=== PATIENT | male | born 1925 | race Caucasian/White ===

== ENCOUNTER 2017-03-14 12:43 | Inpatient (IN) | payer MEDICARE, BC ==
[2017-03-14] MEDS ORDERED: NS 0.9% 1000 ML*IV.FLUID IV ONE (12:54)
[2017-03-14] MEDS ORDERED: Vancomycin(*) 1,000 MG in NS 0.9% 250 ML* 250 ML IVPB ONE (12:56)
[2017-03-14 13:35] LABS: Urine Bacteria 1+ (Absent); Urine Bilirubin Negative (Negative); Urine Glucose Negative (Negative); Urine Nitrite Negative (Negative)
[2017-03-14 13:37] LABS: Hematocrit 31 % (42-52); Hemoglobin 9.9 g/dl (14.0-18.0); Mean Corpuscular HGB Conc 32 g/dl (31-36); Mean Corpuscular Hemoglobin 32 pg (27-31); Mean Corpuscular Volume 99 fL (80-94); Mean Platelet Volume 11 um3 (7.4-10.4); Red Blood Count 3.13 10^6/ul (4.0-5.4); Red Cell Distribution Width 16 % (10.5-15); White Blood Count 5.3 10^3/ul (3.5-10.8)
[2017-03-14 13:39] LABS: Add Diff/Slide Review? Slide Review Added; Albumin 3.5 g/dL (3.2-5.2); BUN/Creatinine Ratio 31.2 (8-20); C Reactive Protein 43.47 mg/L (< 5.00); Calcium 8.9 mg/dL (8.6-10.3); Comments Flag Yes; EGFR African American 44.2 (>60); EGFR Non-African American 34.4 (>60); Globulin 3.6 g/dL (2-4); Total Bilirubin 0.5 mg/dL (0.2-1.0); Total Protein 7.1 g/dL (6.4-8.9)
[2017-03-14 13:41] LABS: Troponin I 0.01 ng/mL (<0.04)
--- NOTE | 2017-03-14 13:42 | RAD ---
INDICATION: Sepsis COMPARISON: Chest x-ray July 26, 2015 TECHNIQUE: An AP supine portable view obtained at 1315 hours is submitted. FINDINGS: Bones/Soft Tissues: There are no acute bony findings. There is a right-sided cardiac pacemaker Cardiomediastinal: The correct silhouette is enlarged with an interval increase in size. There is mild interstitial congestion. Lungs: There is hyperinflation with mild underlying chronic interstitial changes. Pleura: There are small pleural effusions. The costophrenic angles are not included entirely in the [id number] Other: None IMPRESSION: CHRONIC LUNG FINDINGS WITH HYPERINFLATION. ENLARGED CARDIAC SILHOUETTE WITH MILD SUPERIMPOSED VASCULAR CONGESTION
[2017-03-14 13:46] LABS: Potassium 5.8 mmol/L (3.5-5.0)
[2017-03-14] MEDS ORDERED: Hydrocortisone INJ* 100 MG VIAL IV ONE (13:54)
[2017-03-14] MEDS ORDERED: Vancomycin per Pharmacy* NOTE FOLLOW UP SCH (14:00)
[2017-03-14] MEDS ORDERED: Zosyn per Pharmacy* NOTE FOLLOW UP SCH (14:00)
--- NOTE | 2017-03-14 14:11 | ED ---
Dilan Sethi Nilda, scribed for Vargas Ybarra MD on 03/14/17 at 1316 . Altered Mental Status - HPI Summary HPI Summary: This patient is an 89 year old M MIAHA presenting to [facility] with a chief complaint of constant lethargy (per EMS) that is still present. Patient is hypotensive. He is DNR. LEVEL 5 Caveat: Limited history due to limited responsiveness. - History Of Current Complaint Stated Complaint: LOW BP Time Seen by Provider: 03/14/17 12:53 Hx Obtained From: EMS Onset/Duration: Still Present Severity Currently: Severe Character: Lethargy Aggravating Factor(s): Unknown Alleviating Factor(s): Unknown - Allergies/Home Medications Allergies/Adverse Reactions: Allergies Allergy/AdvReac Type Severity Reaction Status Date / Time No Known Allergies Allergy Verified 05/08/16 07:35 Home Medications: Home Medications Acetaminophen TAB* [Tylenol TAB*] 325 mg PO Q8HR PRN 03/14/17 [History Confirmed 03/14/17] Acetaminophen TAB* [Tylenol TAB*] 650 mg PO Q6HR PRN 03/14/17 [History Confirmed 03/14/17] Levothyroxine TAB* [Synthroid TAB*] 125 mcg PO DAILY 03/14/17 [History Confirmed 03/14/17] Loperamide CAP* [Imodium CAP*] 2 mg PO Q6HR PRN 03/14/17 [History Confirmed 07/30] Loperamide LIQ* [Imodium LIQ*] 5 ml PO Q12HR PRN 03/14/17 [History Confirmed 07/30] Metoprolol Succinate XL TAB* [Toprol XL TAB*] 25 mg PO DAILY 03/14/17 [History Confirmed 03/14/17] Moisturizing CREAM* [Hydrocerin Cream*] 1 applic TOPICAL BID 03/14/17 [History Confirmed 03/14/17] Nystatin CREAM* 1 applic TOPICAL BID 03/14/17 [History Confirmed 03/14/17] Omeprazole CAP* [Prilosec CAP* 20 MG] 40 mg PO BID 03/14/17 [History Confirmed 03/14/17] Psyllium ROLA* [Metamucil ROLA*] 1 pkt PO DAILY 03/14/17 [History Confirmed ] Sodium Fluoride (Dental) [Denta 5000 Plus] 1.1 % PO Q12HR 03/14/17 [History Confirmed 03/14/17] PMH/Surg Hx/FS Hx/Imm Hx Endocrine/Hematology History: Reports: Hx Anemia Denies: Hx Diabetes Cardiovascular History: Reports: Hx Hypertension, Hx Pacemaker/ICD Denies: Hx Congestive Heart Failure Respiratory History: Reports: Hx Asthma, Hx Pulmonary Embolism GI History: Denies: Hx Jaundice History: Denies: Hx Dialysis, Hx Renal Disease Sensory History: Reports: Hx Contacts or Glasses - reading glasses Opthamlomology History: Reports: Hx Contacts or Glasses - reading glasses Psychiatric History: Denies: Hx Panic Disorder - Cancer History Cancer Type, Location and Year: COLON CA AND PROSTATE CA Hx Chemotherapy: Yes Hx Radiation Therapy: Yes - Surgical History Surgery Procedure, Year, and Place: LT KNEE, RT ANKLE SURGERY,COLON RESECTION, PROSTATECTOMY, APPENDIX - Family History Known Family History: Positive: Unknown, Hypertension Negative: Cardiac Disease, Diabetes - Social History Alcohol Use: Weekly Hx Substance Use: No Substance Use Type: Reports: None Hx Tobacco Use: Yes Smoking Status (MU): Former Smoker Review of Systems - ROS Summary Review of Systems Summary: LEVEL 5 Caveat: Limited history due to limited responsiveness. Positive: Other - hypotensive (per EMS) Neurological: Other - lethargic All Other Systems Reviewed And Are Negative: No Physical Exam Triage Information Reviewed: Yes Vital Signs On Initial Exam: Initial Vitals Temp Pulse Resp BP Pulse Ox 90.0 F 62 20 84/63 97 03/14/17 13:13 03/14/17 13:13 03/14/17 13:13 03/14/17 13:13 03/14/17 13:13 Vital Signs Reviewed: Yes Completion Of Physical Exam Limited Due To: Level 5 Skin: Positive: Other - petechial rash diffusely over torso Cardiovascular: Positive: Other - Hypotensive Neurological: Positive: Other - Awake, Answers Questions, Slow to Respond Diagnostics - Vital Signs Vital Signs Temp Pulse Resp BP Pulse Ox 03/14/17 13:30 89.2 F 60 18 85/69 97 03/14/17 13:20 89.1 F 62 19 87/61 97 03/14/17 13:13 90.0 F 62 20 84/63 97 - Laboratory Lab Results: Lab Results 03/14/17 03/14/17 03/14/17 Range/Units 13:00 13:00 13:00 WBC 5.3 (3.5-10.8) 10^3/ul RBC 3.13 L (4.0-5.4) 10^6/ul Hgb 9.9 L (14.0-18.0) g/dl Hct 31 L (42-52) % MCV 99 H (80-94) fL MCH 32 H (27-31) pg MCHC 32 (31-36) g/dl RDW 16 H (10.5-15) % Plt Count 89 L (150-450) 10^3/ul MPV 11 H (7.4-10.4) um3 Neut % (Auto) 78.3 (38-83) % Lymph % (Auto) 10.6 L (25-47) % Kendall % (Auto) 6.5 (1-9) % Eos % (Auto) 4.2 (0-6) % Baso % (Auto) 0.4 (0-2) % Absolute Neuts (auto) 4.2 (1.5-7.7) 10^3/ul Absolute Lymphs (auto) 0.6 L (1.0-4.8) 10^3/ul Absolute Monos (auto) 0.3 (0-0.8) 10^3/ul Absolute Eos (auto) 0.2 (0-0.6) 10^3/ul Absolute Basos (auto) 0 (0-0.2) 10^3/ul Absolute Nucleated RBC 0.03 10^3/ul Nucleated RBC % 0.6 INR (Anticoag Therapy) 1.12 H (0.89-1.11) APTT 39.1 H (26.0-36.3) seconds Sodium 139 (133-145) mmol/L Potassium 5.8 H (3.5-5.0) mmol/L Chloride 106 (101-111) mmol/L Carbon Dioxide 28 (22-32) mmol/L Anion Gap 5 (2-11) mmol/L BUN 58 H (6-24) mg/dL Creatinine 1.86 H (0.67-1.17) mg/dL Est GFR ( Amer) 44.2 (>60) Est GFR (Non-Af Amer) 34.4 (>60) BUN/Creatinine Ratio 31.2 H (8-20) Glucose 83 (70-100) mg/dL Lactic Acid (0.5-2.0) mmol/L Calcium 8.9 (8.6-10.3) mg/dL Total Bilirubin 0.50 (0.2-1.0) mg/dL AST 35 (13-39) U/L ALT 19 (7-52) U/L Alkaline Phosphatase 102 (34-104) U/L Troponin I 0.01 (<0.04) ng/mL C-Reactive Protein 43.47 H (< 5.00) mg/L Total Protein 7.1 (6.4-8.9) g/dL Albumin 3.5 (3.2-5.2) g/dL Globulin 3.6 (2-4) g/dL Albumin/Globulin Ratio 1.0 (1-3) Urine Color Urine Appearance Urine pH (5-9) Ur Specific [place] (1.010-1.030) Urine Protein (Negative) Urine Ketones (Negative) Urine Blood (Negative) Urine Nitrate (Negative) Urine Bilirubin (Negative) Urine Urobilinogen (Negative) Ur Leukocyte Esterase (Negative) Urine WBC (Auto) (Absent) Urine RBC (Auto) (Absent) Ur Transition Epith Cell (Absent) Urine Bacteria (Absent) Urine Glucose (Negative) Urine Ascorbic Acid (Negative) 03/14/17 03/14/17 Range/Units 13:00 13:05 WBC (3.5-10.8) 10^3/ul RBC (4.0-5.4) 10^6/ul Hgb (14.0-18.0) g/dl Hct (42-52) % MCV (80-94) fL MCH (27-31) pg MCHC (31-36) g/dl RDW (10.5-15) % Plt Count (150-450) 10^3/ul MPV (7.4-10.4) um3 Neut % (Auto) (38-83) % Lymph % (Auto) (25-47) % Kendall % (Auto) (1-9) % Eos % (Auto) (0-6) % Baso % (Auto) (0-2) % Absolute Neuts (auto) (1.5-7.7) 10^3/ul Absolute Lymphs (auto) (1.0-4.8) 10^3/ul Absolute Monos (auto) (0-0.8) 10^3/ul Absolute Eos (auto) (0-0.6) 10^3/ul Absolute Basos (auto) (0-0.2) 10^3/ul Absolute Nucleated RBC 10^3/ul Nucleated RBC % INR (Anticoag Therapy) (0.89-1.11) APTT (26.0-36.3) seconds Sodium (133-145) mmol/L Potassium (3.5-5.0) mmol/L Chloride (101-111) mmol/L Carbon Dioxide (22-32) mmol/L Anion Gap (2-11) mmol/L BUN (6-24) mg/dL Creatinine (0.67-1.17) mg/dL Est GFR ( Amer) (>60) Est GFR (Non-Af Amer) (>60) BUN/Creatinine Ratio (8-20) Glucose (70-100) mg/dL Lactic Acid 2.2 H* (0.5-2.0) mmol/L Calcium (8.6-10.3) mg/dL Total Bilirubin (0.2-1.0) mg/dL AST (13-39) U/L ALT (7-52) U/L Alkaline Phosphatase (34-104) U/L Troponin I (<0.04) ng/mL C-Reactive Protein (< 5.00) mg/L Total Protein (6.4-8.9) g/dL Albumin (3.2-5.2) g/dL Globulin (2-4) g/dL Albumin/Globulin Ratio (1-3) Urine Color Irma Urine Appearance Turbid Urine pH 5.0 (5-9) Ur Specific [place] 1.021 (1.010-1.030) Urine Protein 2+(100 mg/dl) H (Negative) Urine Ketones Trace H (Negative) Urine Blood 3+ H (Negative) Urine Nitrate Negative (Negative) Urine Bilirubin Negative (Negative) Urine Urobilinogen Negative (Negative) Ur Leukocyte Esterase 3+ H (Negative) Urine WBC (Auto) 3+(>20/hpf) H (Absent) Urine RBC (Auto) 3+(>10/hpf) H (Absent) Ur Transition Epith Cell Present H (Absent) Urine Bacteria 1+ H (Absent) Urine Glucose Negative (Negative) Urine Ascorbic Acid * H (Negative) Result Diagrams: 03/14/17 13:00 03/14/17 13:00 Lab Statement: Any lab studies that have been ordered have been reviewed, and results considered in the medical decision making process. - Radiology CXR Radiology Interpretation Completed By: Radiologist - Chronic lung findings with hyperinflation. Enlarged cardiac silhouette with mild superimposed vascular congestion. ED physician has reviewed this radiology report and agrees. Altered Mental Statu Course/Dx - Course Course Of Treatment: Mr. Miller presented womewhat lethargic with a low temp and blood pressure. He was given fluids, passive external rewarming, and antibiotics. His W/U revealed dehydration and UTI and he will be admitted to the [facility]. Carson. - Diagnoses Discharge Diagnoses: Sepsis, UTI (urinary tract infection) - Provider Notifications Discussed Care Of Patient With: Mina Carson - [facility] Time Discussed With Above Provider: 13:53 Instructed by Provider To: Admit As Inpatient - Critical Care Time Critical Care Time: 30-74 min Discharge - Discharge Plan Condition: Stable Disposition: ADMITTED TO [facility] The documentation as recorded by the Dilan alegria Nilda accurately reflects the service I personally performed and the decisions made by me, Vargas Ybarra MD.
[2017-03-14] MEDS ORDERED: Albuterol/Ipratropium NEB.SOL* Albuterol 2.5 MG/Ipratropium 0.5 MG 3 ML INH PRN (14:13)
[2017-03-14] MEDS ORDERED: Ondansetron INJ* 2 MG/ML VIAL IV PRN (14:13)
[2017-03-14] MEDS ORDERED: Haloperidol INJ IV/IM* 5 MG/ML AMP IV SLOW PU PRN (14:13)
[2017-03-14] MEDS ORDERED: Acetaminophen TAB* 325 MG PO PRN (14:16)
[2017-03-14] MEDS ORDERED: Levothyroxine INJ* 100 MCG in D5W 250 ML BAG* 250 ML IV SCH (15:00)
[2017-03-14] MEDS ORDERED: Vancomycin(*) 500 MG in NS 0.9% 250 ML* 250 ML IVPB ONE (15:30)
[2017-03-14] MEDS ORDERED: Levothyroxine INJ* 100 MCG/5 ML VIAL IV ONE (16:00)
[2017-03-14 16:13] LABS: TSH (Thyroid Stimulating Horm) 12.64 mcIU/mL (0.34-5.60)
[2017-03-14] MEDS: NS 0.9% 1000 ML* 1,000 ML IV SCH ×3 (16:18→19:19)
[2017-03-14] MEDS: ZOSYN 3.375 GM Q8H per EXTENDED INFUSION IVPB SCH ×2 (16:44)
--- NOTE | 2017-03-14 21:59 | HP ---
H&P (Free Text) History and Physical: CRITICAL CARE MEDICINE DATE: 03/14/17 TIME: 1400 PRIMARY CARE PROVIDER: REFERRING PROVIDER: Tate REASON/CHIEF COMPLAINT: sepsis HISTORY OF PRESENT ILLNESS: 89 M with declining status over last few days perhaps. Historuy limited but pt just wanting to sleep lately. Lethargic today and hypotensive in field and ED. Temp ~90F. Responding to fluid in ED and tx for sepsis sec to uti. REVIEW OF SYSTEMS: As per HPI. PAST MEDICAL HISTORY: As per HPI. Bullous pemphigoid?, urolithiasis, htn, lipids , colon ca, prostate ca, gib, dvt/pe, anesymsal repair MEDICATIONS: Reviewed but unconfirmed. ALLERGIES: Reviewed. None. SOCIAL HISTORY: Reviewed. daughter and granddaughter present. pts son and daughter help with his decisions but she was not clear on proxy. known DNR. FAMILY HISTORY: Noncontributory at present. PHYSICAL EXAM: Vital Signs: Reviewed. hyothermia, hr 60 paced Neurologic: awake, mild encephalopathy. oriented to place but difficulty with correct time and ailements HEENT: anicteric, mm dry, lip cyanosis. Cardiovascular: janel, pacer pocket intact Respiratory: dec phases but clear Abdomen: soft, nt; signs of petechia although they seem much older then just acute septicemia insult Extremities: cool, pretibial edema. Access: 3 piv LABS: Reviewed. IMAGING: Reviewed. MEDICATIONS: Reviewed. ASSESSMENT: 89 M Severe sepsis sec to uti Mild septic encephalopathy Myxodema Adrneal insuff Acute renal failure sec to above Hyperkalemia Thrombocytopenia PLAN: Neurologic: tolerating, but component of encephalopathy present. time, watchfor worsening swings with mentation Cardiovascular: Actual able to tolerate perfusion but quite intravascularly and some interstial depletions. 4L NS bolus and then continued IVF. His inappropriately cardiac ouput and despite demand points to either a poor pump function (last echo would not suggest such) or more hormonal failure, which certainly seems more likely here. needs hydrocortisone and IV T4. no anticiapted vasopressor needs. Respiratory: tolerating but again insufficient for condition. place on 4L and hopefully can avid any lung injury. certainly not the primary ailment at present. prn nebs Gastrointestinal: should be able to cleopatra diet later. no specific Renal/Metabolic: gissell, hopefully much of which is pre-renal. no flank pain nor imaging needed at this time. ravi if needed otherwise f/u for void and Uout. LA small and will clear. K will come down with fluid. Infectious Disease: given zosyn and vanco and given his acute presentation and odd petchiae will remain on broad coverage until cx can hopefully help sort. Sick but not showing toxemia of such. Can follow up his h/o and petechial questions. Hematology: plts are lower then usual and petechie considering but again not appearing to be the toxic ailment. INR ok. No real MAHA to suggest TTP or HUS or alternative really other then his dyanmics labelled already, plus Endocrine: clinical myxodema. ask ED to give hydrocortisone as they explain story to me and then added T4 and may need f/u of both; but certainly needing acute replacement. Known to Dr Manzano who can certainly follow up Musculoskeletal: f/u deconditioning Psych/Social: daughter and granddaughter updated at bedside and understood plans and severity and they were in agreement understanding pts wishes of DNR. They expressed understanding of potential high morbidity and mortality of current msof and we all agreed to tx as we are. Supportive and preventative care as ordered. Vaccine: f/u SUP: po VTE prophylaxis: SCDs, hold chemical as we need to see where his plt go come tomorrow. Disposition: ICU Code Status: DNR/DNI Critical Care Time: 45min Pancho Carson DO
[2017-03-14] MEDS: Levothyroxine INJ* 100 MCG/5 ML VIAL IV ONE ×2 (22:21→22:36)
[2017-03-14] MEDS: Hydrocortisone INJ* 100 MG VIAL IV SCH (22:21)
[2017-03-15] MEDS: ZOSYN 3.375 GM Q8H per EXTENDED INFUSION IVPB SCH ×4 (01:46→09:15)
[2017-03-15] MEDS: NS 0.9% 1000 ML* 1,000 ML IV SCH (04:21)
[2017-03-15 05:31] LABS: Hematocrit 28 % (42-52); Hemoglobin 9.3 g/dl (14.0-18.0); Mean Corpuscular HGB Conc 33 g/dl (31-36); Mean Corpuscular Hemoglobin 33 pg (27-31); Mean Corpuscular Volume 100 fL (80-94); Mean Platelet Volume 11 um3 (7.4-10.4); Red Blood Count 2.84 10^6/ul (4.0-5.4); Red Cell Distribution Width 17 % (10.5-15); White Blood Count 8.2 10^3/ul (3.5-10.8)
[2017-03-15 05:33] LABS: Comments Flag Yes
[2017-03-15 05:42] LABS: BUN/Creatinine Ratio 35.5 (8-20); Calcium 7.9 mg/dL (8.6-10.3); EGFR African American 49.4 (>60); EGFR Non-African American 38.4 (>60); Magnesium 2.5 mg/dL (1.9-2.7); Phosphorus 4.9 mg/dL (2.5-5.0); Vancomycin Random 10.5 mcg/mL
[2017-03-15 05:50] LABS: Potassium 5.7 mmol/L (3.5-5.0)
[2017-03-15] MEDS: Hydrocortisone INJ* 100 MG VIAL IV SCH ×3 (06:18→17:52)
--- NOTE | 2017-03-15 08:38 | PN ---
Subjective - Subjective Reason for Note: Progress Note History: I have reviewed Lex Miller's presentation with his daughter and with Dr. Mina Carson's admitting history and physical. He is a primary care patient of [facility] and I have known him for 23 years. He has recently moved to [facility] living [facility]. He has multiple comorbidities. According to his daughter he has not been in his usual state of mind for 10 days, he has been more sleepy and less communicative. She put it down to the move to [facility]. He presented yesterday with sepsis, UTI, hypothermia, hypothyroidism and a petechial rash. This morning he responds to direct questions - he states he is in the hospital. When I asked him if there was anything I could do to make him comfortable he replied "hope". He denies any pain or distress, but is unable to give an account of himself. 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 Flory Wang [employer] Status post AAA (abdominal aortic aneurysm) repair (Chronic) Z98.89, Z86.79 Current Medications: Current Medications Acetaminophen (Tylenol Tab*) 650 mg PO Q4H PRN PRN Reason: FEVER Albuterol/Ipratropium (Duoneb (Albuterol 2.5 Mg/Ipratropium 0.5 Mg)) 1 neb INH Q4H PRN PRN Reason: SOB/WHEEZING Haloperidol Lactate (Haldol Inj Iv/Im*) 2 mg IV SLOW PU Q6H PRN PRN Reason: AGITATION Hydrocortisone Sodium Succinate (Solu-Cortef*) 100 mg IV Q8H [facility] Last Admin: 03/15/17 06:18 Dose: 100 mg Sodium Chloride (Ns 0.9% 1000 Ml*) 1,000 mls @ 125 mls/hr IV PER RATE [facility] Last Admin: 03/15/17 04:21 Dose: 125 mls/hr Piperacillin Sod/Tazobactam (Sod 3.375 gm/ Sodium Chloride) 100 mls @ 25 mls/ hr IVPB Q8H [facility] Last Admin: 03/15/17 01:46 Dose: 25 mls/hr Sodium Chloride (Ns 0.9% 1000 Ml*) 1,000 mls @ 999 mls/hr IV PER RATE [facility] PRN Reason: Wide Open Stop: 03/15/17 18:25 Last Admin: 03/14/17 19:19 Dose: 999 mls/hr Ondansetron HCl (Zofran Inj*) 4 mg IV Q4H PRN PRN Reason: NAUSEA Pharmacy Consult (Vancomycin Per Pharmacy*) 1 note FOLLOW UP .VANC PER PHARMACY [facility] Pharmacy Consult (Zosyn Per Pharmacy*) 1 note FOLLOW UP .ZOSYN PER PHARMACY [facility] Home Medications: Home Medications Medication Instructions Recorded Confirmed Type Ascorbic Acid TAB* [Vitamin C 500 mg PO DAILY 07/21/15 03/14/17 History TAB*] Ferrous Sulfate TAB* 325 mg PO DAILY 07/21/15 03/14/17 History Magnesium Oxide TAB* [MagOx 400 400 mg PO BID 07/21/15 03/14/17 History TAB*] Tamsulosin CAP* [Flomax CAP*] 0.4 mg PO DAILY 07/21/15 03/14/17 History Acetaminophen TAB* [Tylenol TAB*] 325 mg PO Q8HR PRN 03/14/17 03/14/17 History Acetaminophen TAB* [Tylenol TAB*] 650 mg PO Q6HR PRN 03/14/17 03/14/17 History Levothyroxine TAB* [Synthroid TAB*] 125 mcg PO DAILY 03/14/17 03/14/17 History Loperamide CAP* [Imodium CAP*] 2 mg PO Q6HR PRN 03/14/17 03/14/17 History Loperamide LIQ* [Imodium LIQ*] 5 ml PO Q12HR PRN 03/14/17 03/14/17 History Metoprolol Succinate XL TAB* 25 mg PO DAILY 03/14/17 03/14/17 History [Toprol XL TAB*] Moisturizing CREAM* [Hydrocerin 1 applic TOPICAL BID 03/14/17 03/14/17 History Cream*] Nystatin CREAM* 1 applic TOPICAL BID 03/14/17 03/14/17 History Omeprazole CAP* [Prilosec CAP* 20 40 mg PO BID 03/14/17 03/14/17 History MG] Psyllium ROLA* [Metamucil ROLA*] 1 pkt PO DAILY 03/14/17 03/14/17 History Sodium Fluoride (Dental) [Denta 1.1 % PO Q12HR 03/14/17 03/14/17 History 5000 Plus] Allergies: Allergies Allergy/AdvReac Type Severity Reaction Status Date / Time No Known Allergies Allergy Verified 05/08/16 07:35 Objective - Vital Signs Vital Signs: Vital Signs 03/14/17 03/14/17 03/14/17 14:00 14:06 14:12 Temperature 90.3 F 90.3 F 90.5 F Pulse Rate 60 61 60 Respiratory 19 23 19 Rate Blood Pressure 81/54 87/58 84/59 (mmHg) O2 Sat by Pulse 93 93 97 Oximetry 03/14/17 03/14/17 03/14/17 14:15 14:31 14:46 Temperature 90.5 F 90.9 F 91.0 F Pulse Rate 60 61 60 Respiratory 19 19 20 Rate Blood Pressure 88/58 88/71 86/70 (mmHg) O2 Sat by Pulse 98 99 99 Oximetry 03/14/17 03/14/17 03/14/17 15:00 15:20 15:34 Temperature 91.6 F Pulse Rate 59 60 Respiratory 18 18 22 Rate Blood Pressure 93/65 83/60 88/57 (mmHg) O2 Sat by Pulse 98 100 Oximetry 03/14/17 03/14/17 03/14/17 15:46 16:00 16:01 Temperature 91.8 F 91.9 F 91.9 F Pulse Rate 60 56 60 Respiratory 18 19 17 Rate Blood Pressure 83/60 86/59 (mmHg) O2 Sat by Pulse 99 97 99 Oximetry 03/14/17 03/14/17 03/14/17 16:15 16:30 16:46 Temperature 91.9 F 91.9 F 91.9 F Pulse Rate 60 Respiratory 18 17 18 Rate Blood Pressure 88/62 86/60 82/58 (mmHg) O2 Sat by Pulse 98 Oximetry 03/14/17 03/14/17 03/14/17 17:00 17:01 17:17 Temperature 92.1 F 92.1 F 92.5 F Pulse Rate 53 60 60 Respiratory 18 22 22 Rate Blood Pressure 85/63 88/59 (mmHg) O2 Sat by Pulse 96 97 99 Oximetry 03/14/17 03/14/17 03/14/17 17:31 17:46 18:00 Temperature 92.5 F 92.7 F 92.8 F Pulse Rate 60 60 77 Respiratory 20 21 23 Rate Blood Pressure 93/58 89/63 (mmHg) O2 Sat by Pulse 98 99 95 Oximetry 03/14/17 03/14/17 03/14/17 18:02 18:16 18:30 Temperature 92.8 F 93.0 F 93.0 F Pulse Rate 62 60 60 Respiratory 24 22 22 Rate Blood Pressure 89/63 85/61 87/62 (mmHg) O2 Sat by Pulse 98 99 98 Oximetry 03/14/17 03/14/17 03/14/17 18:45 19:00 19:16 Temperature 93.2 F 93.4 F 93.6 F Pulse Rate 60 60 60 Respiratory 19 20 20 Rate Blood Pressure 86/62 85/63 73/62 (mmHg) O2 Sat by Pulse 99 99 99 Oximetry 03/14/17 03/14/17 03/14/17 19:30 19:46 20:00 Temperature 93.7 F 93.9 F 93.9 F Pulse Rate 60 60 60 Respiratory 19 19 20 Rate Blood Pressure 96/56 74/54 86/59 (mmHg) O2 Sat by Pulse 95 95 96 Oximetry 03/14/17 03/14/17 03/14/17 20:15 20:30 20:45 Temperature 94.1 F 94.3 F 94.5 F Pulse Rate 65 60 Respiratory 20 19 21 Rate Blood Pressure 89/60 80/57 90/62 (mmHg) O2 Sat by Pulse 97 98 Oximetry 03/14/17 03/14/17 03/14/17 21:00 21:01 21:16 Temperature 94.5 F 94.5 F 94.6 F Pulse Rate 61 60 60 Respiratory 20 21 21 Rate Blood Pressure 91/60 91/71 (mmHg) O2 Sat by Pulse 93 97 98 Oximetry 03/14/17 03/14/17 03/14/17 21:30 21:45 21:58 Temperature 94.6 F 94.8 F 95.0 F Pulse Rate 60 60 60 Respiratory 21 21 28 Rate Blood Pressure 93/63 84/62 90/60 (mmHg) O2 Sat by Pulse 98 97 98 Oximetry 03/14/17 03/14/17 03/14/17 22:00 22:02 23:00 Temperature 95.0 F 95.0 F 95.5 F Pulse Rate 62 62 63 Respiratory 24 23 20 Rate Blood Pressure 85/60 98/65 (mmHg) O2 Sat by Pulse 98 98 99 Oximetry 03/14/17 03/14/17 03/15/17 23:01 23:57 00:00 Temperature 95.5 F 95.7 F 95.7 F Pulse Rate 61 60 55 Respiratory 21 21 23 Rate Blood Pressure 98/65 (mmHg) O2 Sat by Pulse 99 100 93 Oximetry 03/15/17 03/15/17 03/15/17 00:01 01:00 01:01 Temperature 95.7 F 95.9 F 95.9 F Pulse Rate 60 60 60 Respiratory 21 23 20 Rate Blood Pressure 101/67 92/64 (mmHg) O2 Sat by Pulse 99 96 95 Oximetry 03/15/17 03/15/17 03/15/17 02:00 02:01 03:00 Temperature 95.9 F 95.9 F Pulse Rate 60 60 65 Respiratory 19 18 18 Rate Blood Pressure 86/66 96/69 (mmHg) O2 Sat by Pulse 97 98 98 Oximetry 03/15/17 03/15/17 03/15/17 03:01 04:00 05:00 Temperature 61.3 F 94.6 F 96.1 F Pulse Rate 63 60 61 Respiratory 18 21 20 Rate Blood Pressure 99/67 93/61 (mmHg) O2 Sat by Pulse 98 97 97 Oximetry 03/15/17 03/15/17 03/15/17 05:01 06:00 06:01 Temperature 95.7 F 97.0 F 97.0 F Pulse Rate 60 61 60 Respiratory 20 21 20 Rate Blood Pressure 97/59 (mmHg) O2 Sat by Pulse 97 94 97 Oximetry 03/15/17 03/15/17 03/15/17 07:00 07:01 08:00 Temperature 97.5 F Pulse Rate 61 60 60 Respiratory 20 17 22 Rate Blood Pressure 93/61 102/64 (mmHg) O2 Sat by Pulse 98 97 98 Oximetry 03/15/17 03/15/17 08:01 08:13 Temperature 97.5 F Pulse Rate 60 60 Respiratory 22 16 Rate Blood Pressure (mmHg) O2 Sat by Pulse 98 97 Oximetry - Intake and Output Intake and Output: Intake & Output 03/12/17 03/13/17 03/14/17 03/15/17 11:59 11:59 11:59 11:59 Intake Total 5467 Output Total 185 Balance 5282 Weight 191 lb 2.252 oz Intake: IV Fluids 5442 NS (0.9%) 3442 Oral 25 Output: Maguire 185 Other: Date of Last Bowel 1 Movement Estimated Stool Amount Small ADLs: Meal Record Start: 03/14/17 14: 49 Freq: 09,13,18 Status: Active Document 03/14/17 18:00 [id number] (Rec: 03/14/17 18:37 [id number] [id number]) Intake and Output Start: 03/14/17 14: 49 Freq: 06,14,22 Status: Active Document 03/14/17 17:06 [id number] (Rec: 03/14/17 19:06 [id number] ICU-C25) Document 03/14/17 21:59 [id number] (Rec: 03/14/17 22:00 [id number] ICU-C06) Document 03/14/17 22:46 [id number] (Rec: 03/14/17 22:46 [id number] ICU-C25) Document 03/15/17 06:00 [id number] (Rec: 03/15/17 06:44 [id number]) - Physical Exam General Physical Exam Comment: He has a recovering older crop of petechiae on his chest and a newer batch of non-blanching petechiae on his abdomen. He has intertrigo in his groins that is a little hemorrhagic. He has marked flaky skin of his lower legs, but no major new ulcers. General: No Cyanosis, Yes Anemia, No Jaundice, No Clubbing Skin: Abnormal: Rash Lungs and Chest: Yes: Chest Expansion Full, Chest Expansion Symetrica, Percussion Note Resonant, Vessicular Breath Sounds. No: Crackles, Wheezes Heart Rate and Rhythm: Regular Additional Cardiovascular: Yes: Normal Heart Sounds. No: Pedal Edema Abdominal Exam: Yes: Distention, Soft - but firm, Bowel Sounds Present - reduced. No: Rigidity, Abdominal Mass, Hepatomegaly, Abdominal Tenderness - Neuro Orientation: Person, Place Speech: Normal - He has slow speech and is not discursive, but no aphasia Results - Results Lab Results: Laboratory Results - last 24 hr 03/14/17 03/15/17 03/15/17 17:50 05:10 05:10 WBC 8.2 RBC 2.84 L Hgb 9.3 L Hct 28 L MCV 100 H MCH 33 H MCHC 33 RDW 17 H Plt Count 76 L MPV 11 H Neut % (Auto) 94.9 H Lymph % (Auto) 2.7 L Converse % (Auto) 1.8 Eos % (Auto) 0.2 Baso % (Auto) 0.4 Absolute Neuts (auto) 7.8 H Absolute Lymphs (auto) 0.2 L Absolute Monos (auto) 0.2 Absolute Eos (auto) 0 Absolute Basos (auto) 0 Absolute Nucleated RBC 0.04 Nucleated RBC % 0.5 Sodium 139 Potassium 5.7 H Chloride 112 H Carbon Dioxide 20 L Anion Gap 7 BUN 60 H Creatinine 1.69 H Est GFR ( Amer) 49.4 Est GFR (Non-Af Amer) 38.4 BUN/Creatinine Ratio 35.5 H Glucose 76 Lactic Acid 1.1 Calcium 7.9 L Phosphorus 4.9 Magnesium 2.5 Random Vancomycin 10.5 Assessment - Problem List Assessment: Patient Problems Acute renal failure (Acute) DNR (do not resuscitate) (Acute) Hypothermia (Acute) MRSA nasal colonization (Acute) Medical orders for life-sustaining treatment (MOLST) form in chart (Acute) Oliguria (Acute) Petechial eruption (Acute) Sepsis (Acute) Urinary tract infection (Acute) Anemia (Chronic) Hyperlipidemia (Chronic) Late effects of acute poliomyelitis (Chronic) S/P cardiac pacemaker procedure (Chronic 03/14/14) Status post AAA (abdominal aortic aneurysm) repair (Chronic) Tachycardia (Chronic 03/14/14) Plan: Sepsis (Acute) He presents with sepsis due to a urinary tract infection and he has organ failure - in particular his kidneys. He is receiving broad spectrum antibacterial treatment. Initially growth of urine cultures is suspicious for enterococcus - identification will come later today. I will maintain his current IV antibacterial coverage. Urinary tract infection (Acute) He is receiving antibacterial treatment Acute renal failure (Acute) Oliguria (Acute)He has oliguria and is likely to have acute tubular necrosis (ATN). I will check his fractional sodium excretion. He has had 5 liters or more of IVF, I will limit the IVF to prevent volume overload as he will likely not respond to diuretics if he has ATN. DNR (do not resuscitate) (Acute) I discussed this with the family - I am well aware of his wishes from prior conversations Hypothermia (Acute) This is likely multifactorial - from overwhelming sepsis in an elderly debilitated person and also hypothyroidism MRSA nasal colonization (Acute) He is currently receiving IV vancomycin Medical orders for life-sustaining treatment (MOLST) form in chart (Acute) This was countersigned by his daughter and signed by Dr. Alli Garciaial eruption (Acute) This looks more chronic. This is likely a drug reaction, or possibly a response to this infection. He has thrombocytopenia. 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 When I examined him his heels were unsupported and he is at high risk of developing these again. His RN noticed this at the same time as me and immediately offloaded the heels. He has poor skin of his lower legs with much flaking, dryness and trophic changes. I had a conversation with his daughter and grand-daughter. I told them he remained critically ill and that on this occasion he may not survive. He is DNR. I discussed giving him another night in the ICU and acute medical treatment. If it is clear that he is developing further organ failure and no signs of recover, we will then obtain [facility] consultation and consider where we should continue with terminal care. However, they are in agreement with giving him some time to see if things improved - after all Lex asked for hope.
[2017-03-15] MEDS: D5W 1/2 NS 1000 ML BAG* 1,000 ML IV SCH ×2 (09:59→23:13)
[2017-03-15] MEDS ORDERED: Vancomycin(*) 1,250 MG IV x ONCE IVPB ONE ×2 (10:00)
[2017-03-15] MEDS ORDERED: Nystatin CREAM* 15 GM TUBE TOPICAL PRN (10:50)
[2017-03-15 11:18] LABS: Renal Sodium Excretion 0.22 %
--- NOTE | 2017-03-15 13:01 | PN ---
Progress Note - Progress Note Date of Service: 03/15/17 Note: CRITICAL CARE MEDICINE DATE: 03/15/17 TIME: 900 SUBJECTIVE: Patient seen and examined. awake and communicating perhaps a touch better then yesterday for me. daughter at bedside. PHYSICAL EXAM: Vital Signs: Reviewed. euthermic, hr 60 paced; sbp ~120. Neurologic: awake, communicating some HEENT: anicteric, mmm; protrudes tongue Cardiovascular: janel Respiratory: mild prolonged exp phase, scant wheeze Abdomen: soft, nt; petechia same. Extremities: warmer, dep edema. Access: 3 piv LABS: Reviewed. IMAGING: Reviewed. MEDICATIONS: Reviewed. ASSESSMENT: 89 M Severe sepsis sec to uti Mild septic encephalopathy Myxodema Adrneal insuff Acute renal failure sec to above Hyperkalemia Thrombocytopenia PLAN: Neurologic: tolerating; denies discomfort. no specific need Cardiovascular: perfusion better; intravasc vol met and interstial a bit up. agree with fluid change and hopefully if renal recovery improves later today he can perhaps come off completely. Respiratory: tolerating on 4-6L and likely with some basilar water which we will try not to expland; however he needs to support his own lung expansion. prn nebs Gastrointestinal: diet as able. Renal/Metabolic: gissell with component of ATN. fluids as above. f/u. Infectious Disease: given zosyn and vanco and aerococcus species thusfar; hopefully we can get a more accurate bug and sens, until then continnue abx as is. Hematology: plts held well. petechia same and perhaps in longer evolution. Endocrine: clinical myxodema improved post T4 and steroids. can resume T4 replacement. steroid pulse can taper or come off relatively quickly. Musculoskeletal: f/u deconditioning needs Psych/Social: daughter and granddaughter updated at bedside and expressed understanding. Supportive and preventative care as ordered. Vaccine: f/u SUP: po VTE prophylaxis: SCDs, start hsq Disposition: ICU today and perhaps floor tomorrow; real question is whether he can thrive to return to previous life level or needing more hospice approach. time Code Status: DNR/DNI Critical Care Time: 35min Pancho Carson DO
[2017-03-15] MEDS: Nystatin TOP POWDER* 15 GM BTL TOPICAL PRN (13:37)
[2017-03-15] MEDS ORDERED: Levothyroxine INJ* 100 MCG/5 ML VIAL IV ONE (14:00)
[2017-03-15] MEDS: Heparin VIAL(*) 5000 UNITS/ML VIAL (FIVE THOUSAND) SUBCUT SCH ×2 (14:20→21:45)
[2017-03-15] MEDS: ZOSYN 3.375 GM Q8H IVPB SCH ×2 (17:52)
[2017-03-16] MEDS: ZOSYN 3.375 GM Q8H IVPB SCH ×6 (01:35→18:08)
[2017-03-16] MEDS: Hydrocortisone INJ* 100 MG VIAL IV SCH ×2 (01:35→16:32)
[2017-03-16 05:46] LABS: Hematocrit 29 % (42-52); Hemoglobin 9.5 g/dl (14.0-18.0); Mean Corpuscular HGB Conc 33 g/dl (31-36); Mean Corpuscular Hemoglobin 33 pg (27-31); Mean Corpuscular Volume 100 fL (80-94); Mean Platelet Volume 11 um3 (7.4-10.4); Red Blood Count 2.88 10^6/ul (4.0-5.4); Red Cell Distribution Width 17 % (10.5-15); White Blood Count 9.1 10^3/ul (3.5-10.8)
[2017-03-16 05:50] LABS: Comments Flag Yes
[2017-03-16] MEDS ORDERED: Vancomycin Random Level* NOTE FOLLOW UP ONE (06:00)
[2017-03-16 06:03] LABS: BUN/Creatinine Ratio 33.5 (8-20); C Reactive Protein 55.84 mg/L (< 5.00); Calcium 8.4 mg/dL (8.6-10.3); Direct Bilirubin 0.2 mg/dL (0.03-0.18); EGFR African American 46.2 (>60); EGFR Non-African American 35.9 (>60); Globulin 3.2 g/dL (2-4); Indirect Bilirubin 0.3 mg/dL (0.3-1.0); Potassium 5.1 mmol/L (3.5-5.0); Total Bilirubin 0.5 mg/dL (0.2-1.0); Total Protein 6.2 g/dL (6.4-8.9)
[2017-03-16] MEDS: Heparin VIAL(*) 5000 UNITS/ML VIAL (FIVE THOUSAND) SUBCUT SCH ×3 (06:44→21:39)
[2017-03-16] MEDS: Levothyroxine INJ* 100 MCG/5 ML VIAL IV SCH (06:44)
--- NOTE | 2017-03-16 07:48 | PN ---
Subjective - Subjective Reason for Note: Progress Note History: He is awake and alert, and saying short sentences. He denies pain, but is thirsty. His core temperature is improving and he is hemodynamically stable. 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 Flory Wang [employer] Status post AAA (abdominal aortic aneurysm) repair (Chronic) Z98.89, Z86.79 Current Medications: Current Medications Acetaminophen (Tylenol Tab*) 650 mg PO Q4H PRN PRN Reason: FEVER Albuterol/Ipratropium (Duoneb (Albuterol 2.5 Mg/Ipratropium 0.5 Mg)) 1 neb INH Q4H PRN PRN Reason: SOB/WHEEZING Haloperidol Lactate (Haldol Inj Iv/Im*) 2 mg IV SLOW PU Q6H PRN PRN Reason: AGITATION Heparin Sodium (Porcine) (Heparin Vial(*)) 5,000 units SUBCUT Q8HR [facility] Last Admin: 03/16/17 06:44 Dose: 5,000 units Hydrocortisone Sodium Succinate (Solu-Cortef*) 50 mg IV Q8H [facility] Last Admin: 03/16/17 01:35 Dose: 50 mg Dextrose/Sodium Chloride (D5w 1/2 Ns 1000 Ml Bag*) 1,000 mls @ 75 mls/hr IV PER RATE [facility] Last Admin: 03/15/17 23:13 Dose: 75 mls/hr Piperacillin Sod/Tazobactam (Sod 3.375 gm/ Sodium Chloride) 100 mls @ 200 mls/ hr IVPB Q8H [facility] Last Admin: 03/16/17 01:35 Dose: 200 mls/hr Levothyroxine Sodium (Synthroid Inj*) 75 mcg IV 0600 [facility] Last Admin: 03/16/17 06:44 Dose: 75 mcg Nystatin (Nystatin Top Powder*) 1 applic TOPICAL TID PRN PRN Reason: RASH Last Admin: 03/15/17 13:37 Dose: 1 powder Ondansetron HCl (Zofran Inj*) 4 mg IV Q4H PRN PRN Reason: NAUSEA Pharmacy Consult (Vancomycin Per Pharmacy*) 1 note FOLLOW UP .VANC PER PHARMACY [facility] Pharmacy Consult (Zosyn Per Pharmacy*) 1 note FOLLOW UP .ZOSYN PER PHARMACY [facility] Home Medications: Home Medications Medication Instructions Recorded Confirmed Type Ascorbic Acid TAB* [Vitamin C 500 mg PO DAILY 07/21/15 03/14/17 History TAB*] Ferrous Sulfate TAB* 325 mg PO DAILY 07/21/15 03/14/17 History Magnesium Oxide TAB* [MagOx 400 400 mg PO BID 07/21/15 03/14/17 History TAB*] Tamsulosin CAP* [Flomax CAP*] 0.4 mg PO DAILY 07/21/15 03/14/17 History Acetaminophen TAB* [Tylenol TAB*] 325 mg PO Q8HR PRN 03/14/17 03/14/17 History Acetaminophen TAB* [Tylenol TAB*] 650 mg PO Q6HR PRN 03/14/17 03/14/17 History Levothyroxine TAB* [Synthroid TAB*] 125 mcg PO DAILY 03/14/17 03/14/17 History Loperamide CAP* [Imodium CAP*] 2 mg PO Q6HR PRN 03/14/17 03/14/17 History Loperamide LIQ* [Imodium LIQ*] 5 ml PO Q12HR PRN 03/14/17 03/14/17 History Metoprolol Succinate XL TAB* 25 mg PO DAILY 03/14/17 03/14/17 History [Toprol XL TAB*] Moisturizing CREAM* [Hydrocerin 1 applic TOPICAL BID 03/14/17 03/14/17 History Cream*] Nystatin CREAM* 1 applic TOPICAL BID 03/14/17 03/14/17 History Omeprazole CAP* [Prilosec CAP* 20 40 mg PO BID 03/14/17 03/14/17 History MG] Psyllium ROLA* [Metamucil ROLA*] 1 pkt PO DAILY 03/14/17 03/14/17 History Sodium Fluoride (Dental) [Denta 1.1 % PO Q12HR 03/14/17 03/14/17 History 5000 Plus] Allergies: Allergies Allergy/AdvReac Type Severity Reaction Status Date / Time No Known Allergies Allergy Verified 05/08/16 07:35 Objective - Vital Signs Vital Signs: Vital Signs 03/15/17 03/15/17 03/15/17 08:00 08:01 08:13 Temperature 97.5 F 97.5 F Pulse Rate 60 60 60 Respiratory 22 22 16 Rate Blood Pressure 102/64 (mmHg) O2 Sat by Pulse 98 98 97 Oximetry 03/15/17 03/15/17 03/15/17 09:00 09:01 10:00 Temperature 97.2 F 97.3 F 97.3 F Pulse Rate 79 81 59 Respiratory 25 19 19 Rate Blood Pressure 112/63 (mmHg) O2 Sat by Pulse 95 100 Oximetry 03/15/17 03/15/17 03/15/17 10:01 11:00 11:01 Temperature 97.3 F 97.2 F 97.2 F Pulse Rate 60 52 60 Respiratory 18 21 21 Rate Blood Pressure 107/65 110/78 (mmHg) O2 Sat by Pulse 100 100 Oximetry 03/15/17 03/15/17 03/15/17 12:00 12:01 13:00 Temperature 97.3 F 97.3 F 97.0 F Pulse Rate 22 67 Respiratory 23 19 17 Rate Blood Pressure 107/72 107/73 (mmHg) O2 Sat by Pulse 74 98 Oximetry 03/15/17 03/15/17 03/15/17 13:01 14:00 14:01 Temperature 97.0 F 97.0 F 97.0 F Pulse Rate 65 60 60 Respiratory 20 30 22 Rate Blood Pressure 105/69 (mmHg) O2 Sat by Pulse 99 97 98 Oximetry 03/15/17 03/15/17 03/15/17 15:00 15:01 16:00 Temperature 96.1 F 97.0 F Pulse Rate 60 60 64 Respiratory 16 20 20 Rate Blood Pressure 97/64 117/74 (mmHg) O2 Sat by Pulse 98 99 99 Oximetry 03/15/17 03/15/17 03/15/17 16:01 17:00 17:01 Temperature 97.0 F 97.2 F 97.2 F Pulse Rate 63 61 60 Respiratory 23 25 23 Rate Blood Pressure 106/66 (mmHg) O2 Sat by Pulse 99 98 98 Oximetry 03/15/17 03/15/17 03/15/17 18:00 18:01 19:00 Temperature 97.5 F 97.5 F 97.7 F Pulse Rate 59 60 60 Respiratory 22 19 19 Rate Blood Pressure 111/75 104/61 (mmHg) O2 Sat by Pulse 97 98 96 Oximetry 03/15/17 03/15/17 03/15/17 20:00 20:01 21:00 Temperature 97.7 F 97.7 F 98.1 F Pulse Rate 60 60 61 Respiratory 17 17 18 Rate Blood Pressure 107/66 108/68 (mmHg) O2 Sat by Pulse 97 98 97 Oximetry 03/15/17 03/15/17 03/15/17 21:01 21:04 21:47 Temperature 98.1 F 97.9 F Pulse Rate 61 60 Respiratory 17 20 19 Rate Blood Pressure 109/67 (mmHg) O2 Sat by Pulse 98 98 Oximetry 03/15/17 03/15/17 03/15/17 21:54 22:00 22:01 Temperature 97.9 F 97.9 F Pulse Rate 60 60 Respiratory 22 16 17 Rate Blood Pressure 109/66 (mmHg) O2 Sat by Pulse 98 98 Oximetry 03/15/17 03/15/17 03/16/17 23:00 23:01 00:00 Temperature 97.7 F 97.9 F 98.2 F Pulse Rate 62 61 60 Respiratory 25 17 16 Rate Blood Pressure 110/72 106/75 (mmHg) O2 Sat by Pulse 98 98 97 Oximetry 03/16/17 03/16/17 03/16/17 00:01 00:11 00:12 Temperature 98.2 F 98.2 F Pulse Rate 60 60 Respiratory 18 25 25 Rate Blood Pressure (mmHg) O2 Sat by Pulse 97 99 Oximetry 03/16/17 03/16/17 03/16/17 01:00 01:01 01:09 Temperature 98.1 F 98.1 F Pulse Rate 60 60 Respiratory 16 20 21 Rate Blood Pressure 103/65 (mmHg) O2 Sat by Pulse 96 97 Oximetry 03/16/17 03/16/17 03/16/17 02:00 02:01 03:00 Temperature 98.4 F 98.4 F 98.4 F Pulse Rate 60 60 60 Respiratory 18 16 18 Rate Blood Pressure 107/61 104/63 (mmHg) O2 Sat by Pulse 97 97 96 Oximetry 03/16/17 03/16/17 03/16/17 03:01 04:00 04:01 Temperature 98.4 F 98.6 F 98.6 F Pulse Rate 60 60 60 Respiratory 19 17 16 Rate Blood Pressure 111/64 (mmHg) O2 Sat by Pulse 98 97 97 Oximetry 03/16/17 03/16/17 03/16/17 04:37 05:00 05:03 Temperature 98.6 F Pulse Rate 60 Respiratory 20 18 17 Rate Blood Pressure 117/66 (mmHg) O2 Sat by Pulse 96 Oximetry 03/16/17 03/16/17 03/16/17 06:00 06:01 06:51 Temperature 98.2 F 98.2 F Pulse Rate 60 60 Respiratory 25 19 19 Rate Blood Pressure 109/71 (mmHg) O2 Sat by Pulse 96 97 Oximetry 03/16/17 07:00 Temperature 97.7 F Pulse Rate 60 Respiratory 21 Rate Blood Pressure 119/77 (mmHg) O2 Sat by Pulse 99 Oximetry - Intake and Output Intake and Output: Intake & Output 03/13/17 03/14/17 03/15/17 03/16/17 11:59 11:59 11:59 11:59 Intake Total 5477 2891 Output Total 185 890 Balance 5292 2000 Weight 191 lb 2.252 oz 202 lb 13.204 oz Intake: IV Fluids 5442 1690 D5W 1/2 NS 1541 NS (0.9%) 3442 149 IVPB 1151 ABX - ZOSYN 500 NS (0.9%) 651 Oral 35 50 Output: Urine 200 [place] 185 690 Other: Date of Last Bowel 1 Movement Estimated Stool Amount Small ADLs: Meal Record Start: 03/14/17 14: 49 Freq: ,13,18 Status: Active Document 03/14/17 18:00 [id number] (Rec: 03/14/17 18:37 [id number] ICU-C25) Document 03/15/17 09:00 [id number] (Rec: 03/15/17 10:09 [id number] ICU-M10) Document 03/15/17 13:00 [id number] (Rec: 03/15/17 13:58 [id number] ICU-C12) Document 03/15/17 18:00 [id number] (Rec: 03/15/17 18:04 [id number] ICU-M10) Intake and Output Start: 03/14/17 14: 49 Freq: 06,14,22 Status: Active Document 03/14/17 17:06 [id number] (Rec: 03/14/17 19:06 [id number] ICU-C25) Document 03/14/17 21:59 [id number] (Rec: 03/14/17 22:00 [id number] ICU-C06) Document 03/14/17 22:46 [id number] (Rec: 03/14/17 22:46 [id number] ICU-C25) Document 03/15/17 06:00 [id number] (Rec: 03/15/17 06:44 [id number] ICU-C06) Document 03/15/17 14:00 [id number] (Rec: 03/15/17 14:40 [id number] ICU-C12) Document 03/15/17 21:51 [id number] (Rec: 03/15/17 21:53 [id number] ICU-M10) Document 03/16/17 06:15 [id number] (Rec: 03/16/17 06:15 [id number] [facility] Document 03/16/17 06:50 [id number] (Rec: 03/16/17 06:50 [id number] ICU-M10) - Physical Exam General Physical Exam Comment: He is lying on his back in an ICU bed with his heels on the surface of the bed without being relieved of pressure. His mucus membranes are dry. There are no fresh petechiae. He is moving all limbs to command. He coughed after we gave him water to drink General: Yes Anemia, No Jaundice, No Lymphadenopathy, No Clubbing Lungs and Chest: Yes: Chest Expansion Full, Chest Expansion Symetrica, Percussion Note Resonant, Vessicular Breath Sounds, Wheezes. No: Crackles, Respiratory Distress, Use of Accessory Muscles Heart Rate and Rhythm: Regular Additional Cardiovascular: Yes: Normal Heart Sounds, Pedal Edema - trace. No: Heart Murmur Abdominal Exam: Yes: Distention, Soft. No: Abdominal Mass, Abdominal Tenderness , Guarding, Rebound Tenderness Results - Results Lab Results: Laboratory Results - last 24 hr 03/15/17 03/16/17 03/16/17 10:25 05:30 05:30 WBC 9.1 RBC 2.88 L Hgb 9.5 L Hct 29 L MCV 100 H MCH 33 H MCHC 33 RDW 17 H Plt Count 86 L MPV 11 H Neut % (Auto) 91.6 H Lymph % (Auto) 3.7 L [place] % (Auto) 4.1 Eos % (Auto) 0 Baso % (Auto) 0.6 Absolute Neuts (auto) 8.3 H Absolute Lymphs (auto) 0.3 L Absolute Monos (auto) 0.4 Absolute Eos (auto) 0 Absolute Basos (auto) 0.1 Absolute Nucleated RBC 0.23 Nucleated RBC % 2.5 Sodium 139 141 Potassium 5.1 H Chloride 114 H Carbon Dioxide 21 L Anion Gap 6 BUN 60 H Creatinine 1.69 H 1.79 H Est GFR ( Amer) 46.2 Est GFR (Non-Af Amer) 35.9 BUN/Creatinine Ratio 33.5 H Glucose 110 H Calcium 8.4 L Total Bilirubin 0.50 Direct Bilirubin 0.20 H Indirect Bilirubin 0.3 AST 44 H ALT 25 Alkaline Phosphatase 83 C-Reactive Protein 55.84 H Total Protein 6.2 L Albumin 3.0 L Globulin 3.2 Albumin/Globulin Ratio 0.9 L Ur Random Creatinine 129.68 Ur Random Sodium 24 Renal Sodium Excretion 0.22 Other Results/Reports: RUN DATE: 03/16/17 [facility] LAB LIVE PAGE 1 RUN TIME: [address] [address] Specimen Inquiry Name: PATRICKJOCELYN Genny : [address]: Mina Carson DO Acct: [id number] Unit: [id number] AGE: 89 Location: ICU [id number] Re03/14/17 SEX: M Status: ADM IN SPEC: [id number] MARIELA: 03/14/17-[address]: Vargas Ybarra MD REQ: [id number] RECD: 03/14/17 _ STATUS: COMP OTHR DR: Ant Manzano MD SOURCE: URINE SPDESC: ORDERED: Urine Culture Procedure Result Reported Site Urine Culture Final 03/15/17- 0935 ML Organism 1 AEROCOCCUS SPECIES [place] Count >100,000 (Many) CFU/ML Aerococcus isolates are too fastidious for routine susceptibility studies. Aerococcus are usually susceptible to penicillin, amoxicillin, piperacillin, cefipime, rifampin and vancomycin. Moderate to good activity occurs with the quinolones, tetracyclines and erythromycin. ([employer] [place] and Textbook of Diagnostic Microbiology 6th Ed. 2006, p. 705-6.) * ML - MAIN LAB (PSC1) . END OF REPORT * ML = Testing performed at Main Lab DEPARTMENT OF PATHOLOGY, [address] [place] [address] Harris Santo M.D. Director [facility] # [id number] Assessment - Problem List Assessment: Patient Problems Acute renal failure (Acute) At risk of decubitus ulcer (Acute) DNR (do not resuscitate) (Acute) Hypothermia (Acute) Hypothyroidism (Acute) MRSA nasal colonization (Acute) Medical orders for life-sustaining treatment (MOLST) form in chart (Acute) Oliguria (Acute) Petechial eruption (Acute) Sepsis (Acute) Swallowing dysfunction (Acute) Urinary tract infection (Acute) Anemia (Chronic) Hyperlipidemia (Chronic) Late effects of acute poliomyelitis (Chronic) S/P cardiac pacemaker procedure (Chronic 03/14/14) Status post AAA (abdominal aortic aneurysm) repair (Chronic) Tachycardia (Chronic 03/14/14) Plan: Sepsis (Acute) He is recovering from acute sepsis, but he remains weak and it remains an open question if he has the resilience to recover. His CRP is not especially high, and I think his neut% is high due to hydrocortisone. Acute renal failure (Acute) His fractional sodium excretion did not show marked ATN. I can therefore give him diuretics as he has wheezes on examination. I will check a CXR Urinary tract infection (Acute) He has grown Aerococcus species. I will maintain his piperacillin for the moment. At risk of decubitus ulcer (Acute) I will obtain an air mattress and leave careful instructions to off-load his heels. He needs frequent turning DNR (do not resuscitate) (Acute) Hypothermia (Acute)Hypthyroidism He is now maintaining his temperature. He is receiving parenteral thyroid hormone for the moment. I will switch when his swallowing improves. This certainly may account for some of his presentation = hypothermia. MRSA nasal colonization (Acute) Medical orders for life-sustaining treatment (MOLST) form in chart (Acute) Oliguria (Acute) His urine output is low, but he appears to have some volume overload, I will give him some furosemide Petechial eruption (Acute) unchanged Swallowing dysfunction (Acute) for swallowing evaluation Anemia (Chronic) ongoing Hyperlipidemia (Chronic) Late effects of acute poliomyelitis (Chronic) S/P cardiac pacemaker procedure (Chronic 03/14/14) Status post AAA (abdominal aortic aneurysm) repair (Chronic) I tried calling Elle (daughter) and Eugenio (son) - no success. I think he may get over the infection, but the question remains open whether he will strengthen or if he will fail to thrive.
[2017-03-16] MEDS ORDERED: Furosemide IV* 10 MG/ML VIAL (40 MG) IV ONE (08:05)
[2017-03-16] MEDS: D5W 1/2 NS 1000 ML BAG* 1,000 ML IV SCH ×2 (08:32→14:44)
--- NOTE | 2017-03-16 09:05 | RAD ---
HISTORY: Volume overload COMPARISONS: March 14, 2017 VIEWS: 1: frontal portable view of the chest at 8:40 AM FINDINGS: LINES AND TUBES: A right-sided pacemaker is noted CARDIOMEDIASTINAL SILHOUETTE: The cardiac silhouette is enlarged. The aorta structures. PLEURA: There is a small bilateral pleural effusions. There is fluid within the minor fissure. This is progressed from the previous examination. LUNG PARENCHYMA: There is a diffuse reticular pattern with indistinct pulmonary vessels. ABDOMEN: The upper abdomen is clear. There is no subphrenic gas. BONES AND SOFT TISSUES: No bone or soft tissue abnormalities are noted. IMPRESSION: 1. CARDIOMEGALY. 2. PULMONARY INTERSTITIAL EDEMA. 3. BILATERAL PLEURAL EFFUSIONS. 4. THERE HAS BEEN PROGRESSION OF DISEASE COMPARED TO MARCH 14, 2017
[2017-03-17] MEDS: ZOSYN 3.375 GM Q8H IVPB SCH ×8 (01:20→20:40)
[2017-03-17] MEDS: Hydrocortisone INJ* 100 MG VIAL IV SCH ×2 (01:20→23:17)
[2017-03-17 06:12] LABS: Hematocrit 29 % (42-52); Hemoglobin 9.5 g/dl (14.0-18.0); Mean Corpuscular HGB Conc 33 g/dl (31-36); Mean Corpuscular Hemoglobin 33 pg (27-31); Mean Corpuscular Volume 100 fL (80-94); Mean Platelet Volume 10 um3 (7.4-10.4); Red Cell Distribution Width 17 % (10.5-15); White Blood Count 7.8 10^3/ul (3.5-10.8)
[2017-03-17 06:13] LABS: Add Diff/Slide Review? Slide Review Added; Comments Flag Yes
[2017-03-17] MEDS: Heparin VIAL(*) 5000 UNITS/ML VIAL (FIVE THOUSAND) SUBCUT SCH ×3 (06:13→23:17)
[2017-03-17] MEDS: Levothyroxine INJ* 100 MCG/5 ML VIAL IV SCH (06:13)
[2017-03-17 06:42] LABS: BUN/Creatinine Ratio 34.4 (8-20); C Reactive Protein 33.3 mg/L (< 5.00); Calcium 8.5 mg/dL (8.6-10.3); EGFR African American 53.8 (>60); EGFR Non-African American 41.8 (>60); Potassium 4.1 mmol/L (3.5-5.0)
[2017-03-17 09:06] LABS: Basophilic Stippling 1+; Macrocytosis 1+; Polychromasia 1+
--- NOTE | 2017-03-17 11:38 | PN ---
Subjective - Subjective Reason for Note: Progress Note History: Awake, alert and conversational - much improved. He is not able to give an account of himself. He is in no significant pain and has no particular issues he wants to discuss. 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 Flory Wang [employer] Status post AAA (abdominal aortic aneurysm) repair (Chronic) Z98.89, Z86.79 Current Medications: Current Medications Acetaminophen (Tylenol Tab*) 650 mg PO Q4H PRN PRN Reason: FEVER Albuterol/Ipratropium (Duoneb (Albuterol 2.5 Mg/Ipratropium 0.5 Mg)) 1 neb INH Q4H PRN PRN Reason: SOB/WHEEZING Heparin Sodium (Porcine) (Heparin Vial(*)) 5,000 units SUBCUT Q8HR [facility] Last Admin: 03/17/17 06:13 Dose: 5,000 units Piperacillin Sod/Tazobactam (Sod 3.375 gm/ Sodium Chloride) 100 mls @ 25 mls/ hr IVPB Q8H [facility] Last Admin: 03/17/17 10:38 Dose: 25 mls/hr Dextrose/Sodium Chloride (D5w 1/2 Ns 1000 Ml Bag*) 1,000 mls @ 50 mls/hr IV PER RATE [facility] Last Admin: 03/16/17 14:44 Dose: 50 mls/hr Levothyroxine Sodium (Synthroid Inj*) 75 mcg IV 0600 [facility] Last Admin: 03/17/17 06:13 Dose: 75 mcg Nystatin (Nystatin Top Powder*) 1 applic TOPICAL TID PRN PRN Reason: RASH Last Admin: 03/15/17 13:37 Dose: 1 powder Ondansetron HCl (Zofran Inj*) 4 mg IV Q4H PRN PRN Reason: NAUSEA Pharmacy Consult (Zosyn Per Pharmacy*) 1 note FOLLOW UP .ZOSYN PER PHARMACY [facility] Home Medications: Home Medications Medication Instructions Recorded Confirmed Type Ascorbic Acid TAB* [Vitamin C 500 mg PO DAILY 07/21/15 03/14/17 History TAB*] Ferrous Sulfate TAB* 325 mg PO DAILY 07/21/15 03/14/17 History Magnesium Oxide TAB* [MagOx 400 400 mg PO BID 07/21/15 03/14/17 History TAB*] Tamsulosin CAP* [Flomax CAP*] 0.4 mg PO DAILY 07/21/15 03/14/17 History Acetaminophen TAB* [Tylenol TAB*] 325 mg PO Q8HR PRN 03/14/17 03/14/17 History Acetaminophen TAB* [Tylenol TAB*] 650 mg PO Q6HR PRN 03/14/17 03/14/17 History Levothyroxine TAB* [Synthroid TAB*] 125 mcg PO DAILY 03/14/17 03/14/17 History Loperamide CAP* [Imodium CAP*] 2 mg PO Q6HR PRN 03/14/17 03/14/17 History Loperamide LIQ* [Imodium LIQ*] 5 ml PO Q12HR PRN 03/14/17 03/14/17 History Metoprolol Succinate XL TAB* 25 mg PO DAILY 03/14/17 03/14/17 History [Toprol XL TAB*] Moisturizing CREAM* [Hydrocerin 1 applic TOPICAL BID 03/14/17 03/14/17 History Cream*] Nystatin CREAM* 1 applic TOPICAL BID 03/14/17 03/14/17 History Omeprazole CAP* [Prilosec CAP* 20 40 mg PO BID 03/14/17 03/14/17 History MG] Psyllium ROLA* [Metamucil ROLA*] 1 pkt PO DAILY 03/14/17 03/14/17 History Sodium Fluoride (Dental) [Denta 1.1 % PO Q12HR 03/14/17 03/14/17 History 5000 Plus] Allergies: Allergies Allergy/AdvReac Type Severity Reaction Status Date / Time No Known Allergies Allergy Verified 05/08/16 07:35 Objective - Vital Signs Vital Signs: Vital Signs 03/16/17 03/16/17 03/16/17 13:22 15:58 18:00 Temperature 97.4 F Pulse Rate 60 60 60 Respiratory 20 20 20 Rate Blood Pressure 105/60 103/61 105/60 (mmHg) O2 Sat by Pulse 100 100 100 Oximetry 03/16/17 03/16/17 03/16/17 19:45 23:14 23:42 Temperature Pulse Rate 59 61 Respiratory 20 20 18 Rate Blood Pressure 107/64 110/62 (mmHg) O2 Sat by Pulse 100 100 Oximetry 03/17/17 03/17/17 02:30 02:49 Temperature Pulse Rate 60 61 Respiratory 20 20 Rate Blood Pressure 108/64 (mmHg) O2 Sat by Pulse 100 100 Oximetry - Intake and Output Intake and Output: Intake & Output 03/14/17 03/15/17 03/16/17 03/17/17 11:59 11:59 11:59 11:59 Intake Total 5477 3775 400 Output Total 185 1440 1550 Balance 5292 2335 -1150 Weight 191 lb 2.252 oz 202 lb 13.204 oz Intake: IV Fluids 5442 2344 ABX - ZOSYN 110 D5W 1/2 NS 1791 NS (0.9%) 3442 443 IVPB 1151 ABX - ZOSYN 500 NS (0.9%) 651 Oral 35 280 400 Output: Urine 200 Maguire 185 1240 1550 Other: Date of Last Bowel 1 Movement # Bowel Movements 0 Estimated Stool Amount Small ADLs: Meal Record Start: 03/14/17 14: 49 Freq: 09,13,18 Status: Complete Document 03/14/17 18:00 [id number] (Rec: 03/14/17 18:37 [id number] ICU-C25) Document 03/15/17 09:00 [id number] (Rec: 03/15/17 10:09 [id number] ICU-M10) Document 03/15/17 13:00 [id number] (Rec: 03/15/17 13:58 [id number] ICU-C12) Document 03/15/17 18:00 [id number] (Rec: 03/15/17 18:04 [id number] ICU-M10) Document 03/16/17 09:00 [id number] (Rec: 03/16/17 09:12 [id number] ICU-C12) Document 03/16/17 09:11 [id number] (Rec: 03/16/17 09:12 [id number] ICU-C11) ADLs: Meal Record Start: 03/16/17 16: 40 Freq: DAILY@0900,1400,1800 Status: Active Created 03/16/17 16:40 [id number] (Rec: 03/16/17 16:40 [id number] MED-C09) Document 03/16/17 16:42 [id number] (Rec: 03/16/17 16:43 [id number] MED-C09) Document 03/16/17 18:00 [id number] (Rec: 03/16/17 22:58 [id number] MED-C09) Intake and Output Start: 03/14/17 14: 49 Freq: 06,14,22 Status: Complete Document 03/14/17 17:06 [id number] (Rec: 03/14/17 19:06 [id number] ICU-C25) Document 03/14/17 21:59 [id number] (Rec: 03/14/17 22:00 [id number] ICU-C06) Document 03/14/17 22:46 [id number] (Rec: 03/14/17 22:46 [id number] ICU-C25) Document 03/15/17 06:00 [id number] (Rec: 03/15/17 06:44 [id number] ICU-C06) Document 03/15/17 14:00 USR1630 (Rec: 03/15/17 14:40 ULD1350 ICU-C12) Document 03/15/17 21:51 [id number] (Rec: 03/15/17 21:53 [id number] ICU-M10) Document 03/16/17 06:15 [id number] (Rec: 03/16/17 06:15 [id number] ISDEMO-M05 ) Document 03/16/17 06:50 [id number] (Rec: 03/16/17 06:50 [id number] ICU-M10) Document 03/16/17 09:47 [id number] (Rec: 03/16/17 09:47 [id number] ICU-C11) Document 03/16/17 10:31 [id number] (Rec: 03/16/17 10:31 [id number] ICU-M10) - Physical Exam General: No Cyanosis, Yes Anemia, No Jaundice, No Clubbing Lungs and Chest: Yes: Chest Expansion Full, Percussion Note Resonant, Vessicular Breath Sounds. No: Crackles, Wheezes, Respiratory Distress, Use of Accessory Muscles Heart Rate and Rhythm: Regular Additional Cardiovascular: Yes: Normal Heart Sounds. No: Heart Murmur, Pedal Edema Abdominal Exam: Yes: Soft, Bowel Sounds Present. No: Distention, Abdominal Tenderness - Extremities Cranial Nerves II-XII Intact: Yes Limbs: Normal Coordination, Abnormal Power - general weakness/post polio - Neuro Orientation: Place Speech: Normal Results - Results Lab Results: Laboratory Results - last 24 hr 03/17/17 03/17/17 05:37 05:37 WBC 7.8 RBC 2.90 L Hgb 9.5 L Hct 29 L MCV 100 H MCH 33 H MCHC 33 RDW 17 H Plt Count 70 L MPV 10 Neut % (Auto) 87.3 H Lymph % (Auto) 6.2 L [place] % (Auto) 5.8 Eos % (Auto) 0.5 Baso % (Auto) 0.2 Absolute Neuts (auto) 6.8 Absolute Lymphs (auto) 0.5 L Absolute Monos (auto) 0.5 Absolute Eos (auto) 0 Absolute Basos (auto) 0 Absolute Nucleated RBC 0.07 Nucleated RBC % 1.0 Normal RBC Morphology Not Reportable Polychromasia 1+ Basophilic Stippling 1+ Macrocytosis 1+ Elliptocytes 1+ Sodium 143 Potassium 4.1 Chloride 115 H Carbon Dioxide 22 Anion Gap 6 BUN 54 H Creatinine 1.57 H Est GFR ( Amer) 53.8 Est GFR (Non-Af Amer) 41.8 BUN/Creatinine Ratio 34.4 H Glucose 97 Calcium 8.5 L C-Reactive Protein 33.30 H Radiology Results: Patient Name: JOCELYN NGUYEN Medical Record#: [id number] Ordering Physician: Ant Manzano MD Acct.#: [id number] : 1925 Age: 89 Sex: M Location: [facility] Exam Date: 03/16/17800 ADM Status: ADM IN Order Information: CHEST AP PORTABLE Accession Number: [id number] CPT: 57494 HISTORY: Volume overload COMPARISONS: March 14, 2017 VIEWS: 1: frontal portable view of the chest at 8:40 AM FINDINGS: LINES AND TUBES: A right-sided pacemaker is noted CARDIOMEDIASTINAL SILHOUETTE: The cardiac silhouette is enlarged. The aorta structures. PLEURA: There is a small bilateral pleural effusions. There is fluid within the minor fissure. This is progressed from the previous examination. LUNG PARENCHYMA: There is a diffuse reticular pattern with indistinct pulmonary vessels. ABDOMEN: The upper abdomen is clear. There is no subphrenic gas. BONES AND SOFT TISSUES: No bone or soft tissue abnormalities are noted. IMPRESSION: 1. CARDIOMEGALY. 2. PULMONARY INTERSTITIAL EDEMA. 3. BILATERAL PLEURAL EFFUSIONS. 4. THERE HAS BEEN PROGRESSION OF DISEASE COMPARED TO MARCH 14, 2017 <Electronically signed by Cm Kinsey MD in OV> 03/16/17901 Dictated By: Cm Knisey MD Dictated Date/Time: 03/16/17901 Transcribed Date/Time: 03/16/17900 Copy to: CC:Ant Manzano MD; Mina Carson DO Imaging - [facility] [address] [address] ph [phone]) ph ([phone]) ph ([phone]) 1 of 1 Assessment - Problem List Assessment: Patient Problems At risk of decubitus ulcer (Acute) DNR (do not resuscitate) (Acute) Hypothermia (Acute) Hypothyroidism (Acute) MRSA nasal colonization (Acute) Medical orders for life-sustaining treatment (MOLST) form in chart (Acute) Sepsis (Acute) Swallowing dysfunction (Acute) Urinary tract infection (Acute) Anemia (Chronic) Hyperlipidemia (Chronic) Late effects of acute poliomyelitis (Chronic) S/P cardiac pacemaker procedure (Chronic 03/14/14) Status post AAA (abdominal aortic aneurysm) repair (Chronic) Tachycardia (Chronic 03/14/14) Plan: Acute renal failure (Acute) This is slowly resolving. He had a diuretic response to furosemide yesterday. At risk of decubitus ulcer (Acute) I discussed this with RN DNR (do not resuscitate) (Acute) Hypothermia (Acute) Resolved Hypothyroidism (Acute) I will transfer him to oral thyroid hormone (usual dose). MRSA nasal colonization (Acute) Medical orders for life-sustaining treatment (MOLST) form in chart (Acute) Oliguria (Acute) resolved Petechial eruption (Acute) resolving Sepsis (Acute) resolving - CRP is coming down, WBC is improved Swallowing dysfunction (Acute) I reviewed the speech therapy report - severe oropharyngeal dysphagia - recommends thickened liquids Urinary tract infection (Acute) Resolving - CRP improved Anemia (Chronic) no change Hyperlipidemia (Chronic) secondary diagnosis Late effects of acute poliomyelitis (Chronic) secondary diagnosis S/P cardiac pacemaker procedure (Chronic 03/14/14) Status post AAA (abdominal aortic aneurysm) repair (Chronic) I spoke to his daughter and told her of his improvement.
[2017-03-17] MEDS ORDERED: NS 0.9% 250 ML* 250 ML IV ONE (23:00)
[2017-03-18] MEDS: ZOSYN 3.375 GM Q8H IVPB SCH ×8 (04:37→18:03)
[2017-03-18] MEDS: Hydrocortisone INJ* 100 MG VIAL IV SCH (05:40)
[2017-03-18] MEDS: Levothyroxine TAB* 150 MCG TAB PO SCH (05:43)
[2017-03-18] MEDS: Heparin VIAL(*) 5000 UNITS/ML VIAL (FIVE THOUSAND) SUBCUT SCH ×2 (05:44→12:38)
[2017-03-18 07:31] LABS: Hematocrit 29 % (42-52); Hemoglobin 9.5 g/dl (14.0-18.0); Mean Corpuscular HGB Conc 33 g/dl (31-36); Mean Corpuscular Hemoglobin 33 pg (27-31); Mean Corpuscular Volume 100 fL (80-94); Mean Platelet Volume 10 um3 (7.4-10.4); Red Blood Count 2.87 10^6/ul (4.0-5.4); Red Cell Distribution Width 17 % (10.5-15); White Blood Count 8.2 10^3/ul (3.5-10.8)
[2017-03-18 07:32] LABS: Comments Flag Yes
[2017-03-18 07:48] LABS: BUN/Creatinine Ratio 34.3 (8-20); C Reactive Protein 26.65 mg/L (< 5.00); Calcium 8.5 mg/dL (8.6-10.3); EGFR African American 64.5 (>60); EGFR Non-African American 50.2 (>60); Potassium 4.3 mmol/L (3.5-5.0)
--- NOTE | 2017-03-18 08:34 | PN ---
Subjective - Subjective Reason for Note: Progress Note History: He had another episode of hypothermia yesterday evening. He has warmed up overnight with a "bear hugger" and is much improved this morning. I also restarted his hydrocortisone. This morning he is alert and is able to answer direct questions and follow simple commands. He denies any pain or discomfort. 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 Flory Wang [employer] Status post AAA (abdominal aortic aneurysm) repair (Chronic) Z98.89, Z86.79 Current Medications: Current Medications Acetaminophen (Tylenol Tab*) 650 mg PO Q4H PRN PRN Reason: FEVER Albuterol/Ipratropium (Duoneb (Albuterol 2.5 Mg/Ipratropium 0.5 Mg)) 1 neb INH Q4H PRN PRN Reason: SOB/WHEEZING Furosemide (Lasix Tab*) 40 mg PO DAILY [facility] Heparin Sodium (Porcine) (Heparin Vial(*)) 5,000 units SUBCUT Q8HR [facility] Last Admin: 03/18/17 05:44 Dose: 5,000 units Hydrocortisone Sodium Succinate (Solu-Cortef*) 50 mg IV Q8H [facility] Last Admin: 03/18/17 05:40 Dose: 50 mg Piperacillin Sod/Tazobactam (Sod 3.375 gm/ Sodium Chloride) 100 mls @ 200 mls/ hr IVPB 0400,1200,2000 [facility] Last Admin: 03/18/17 04:37 Dose: 200 mls/hr Levothyroxine Sodium (Synthroid Tab*) 150 mcg PO DAILY@0600 [facility] Last Admin: 03/18/17 05:43 Dose: 150 mcg Nystatin (Nystatin Top Powder*) 1 applic TOPICAL TID PRN PRN Reason: RASH Last Admin: 03/15/17 13:37 Dose: 1 powder Ondansetron HCl (Zofran Inj*) 4 mg IV Q4H PRN PRN Reason: NAUSEA Pharmacy Consult (Zosyn Per Pharmacy*) 1 note FOLLOW UP .ZOSYN PER PHARMACY [facility] Home Medications: Home Medications Medication Instructions Recorded Confirmed Type Ascorbic Acid TAB* [Vitamin C 500 mg PO DAILY 07/21/15 03/14/17 History TAB*] Ferrous Sulfate TAB* 325 mg PO DAILY 07/21/15 03/14/17 History Magnesium Oxide TAB* [MagOx 400 400 mg PO BID 07/21/15 03/14/17 History TAB*] Tamsulosin CAP* [Flomax CAP*] 0.4 mg PO DAILY 07/21/15 03/14/17 History Acetaminophen TAB* [Tylenol TAB*] 325 mg PO Q8HR PRN 03/14/17 03/14/17 History Acetaminophen TAB* [Tylenol TAB*] 650 mg PO Q6HR PRN 03/14/17 03/14/17 History Levothyroxine TAB* [Synthroid TAB*] 125 mcg PO DAILY 03/14/17 03/14/17 History Loperamide CAP* [Imodium CAP*] 2 mg PO Q6HR PRN 03/14/17 03/14/17 History Loperamide LIQ* [Imodium LIQ*] 5 ml PO Q12HR PRN 03/14/17 03/14/17 History Metoprolol Succinate XL TAB* 25 mg PO DAILY 03/14/17 03/14/17 History [Toprol XL TAB*] Moisturizing CREAM* [Hydrocerin 1 applic TOPICAL BID 03/14/17 03/14/17 History Cream*] Nystatin CREAM* 1 applic TOPICAL BID 03/14/17 03/14/17 History Omeprazole CAP* [Prilosec CAP* 20 40 mg PO BID 03/14/17 03/14/17 History MG] Psyllium ROLA* [Metamucil ROLA*] 1 pkt PO DAILY 03/14/17 03/14/17 History Sodium Fluoride (Dental) [Denta 1.1 % PO Q12HR 03/14/17 03/14/17 History 5000 Plus] Allergies: Allergies Allergy/AdvReac Type Severity Reaction Status Date / Time No Known Allergies Allergy Verified 05/08/16 07:35 Objective - Vital Signs Vital Signs: Vital Signs 03/17/17 03/17/17 03/17/17 10:54 15:32 18:49 Temperature Pulse Rate 60 59 58 Respiratory 20 16 20 Rate Blood Pressure 114/68 112/71 101/54 (mmHg) O2 Sat by Pulse 100 98 100 Oximetry 03/17/17 03/17/17 03/17/17 19:55 21:47 22:00 Temperature 92.5 F 92.7 F 92.7 F Pulse Rate Respiratory Rate Blood Pressure (mmHg) O2 Sat by Pulse Oximetry 03/17/17 03/17/17 03/17/17 23:31 23:40 23:47 Temperature 94.0 F Pulse Rate 59 Respiratory 16 16 Rate Blood Pressure 96/56 (mmHg) O2 Sat by Pulse 99 Oximetry 03/18/17 03/18/17 03:29 07:47 Temperature 96.3 F 97.6 F Pulse Rate 60 Respiratory 16 Rate Blood Pressure 115/64 (mmHg) O2 Sat by Pulse 100 Oximetry - Intake and Output Intake and Output: Intake & Output 03/15/17 03/16/17 03/17/17 03/18/17 11:59 11:59 11:59 11:59 Intake Total 5477 3775 400 120 Output Total 185 1440 1550 700 Balance 5292 2335 -1150 -580 Weight 191 lb 2.252 oz 202 lb 13.204 oz Intake: IV Fluids 5442 2344 ABX - ZOSYN 110 D5W 1/2 NS 1791 NS (0.9%) 3442 443 IVPB 1151 ABX - ZOSYN 500 NS (0.9%) 651 Oral 35 280 400 120 Output: Urine 200 Maguire 185 1240 1550 700 Other: Date of Last Bowel 1 Movement # Bowel Movements 0 0 Estimated Stool Amount Small ADLs: Meal Record Start: 03/14/17 14: 49 Freq: ,,18 Status: Complete Document 03/14/17 18:00 [id number] (Rec: 03/14/17 18:37 [id number] ICU-C25) Document 03/15/17 09:00 [id number] (Rec: 03/15/17 10:09 [id number] ICU-M10) Document 03/15/17 13:00 [id number] (Rec: 03/15/17 13:58 [id number] ICU-C12) Document 03/15/17 18:00 [id number] (Rec: 03/15/17 18:04 [id number] ICU-M10) Document 03/16/17 09:00 [id number] (Rec: 03/16/17 09:12 [id number] ICU-C12) Document 03/16/17 09:11 [id number] (Rec: 03/16/17 09:12 [id number] ICU-C11) ADLs: Meal Record Start: 03/16/17 16: 40 Freq: DAILY@0900,1400,1800 Status: Active Created 03/16/17 16:40 [id number] (Rec: 03/16/17 16:40 [id number] MED-C09) Document 03/16/17 16:42 [id number] (Rec: 03/16/17 16:43 [id number] MED-C09) Document 03/16/17 18:00 [id number] (Rec: 03/16/17 22:58 [id number] MED-C09) Document 03/17/17 09:00 [id number] (Rec: 03/17/17 11:30 [id number] MED-C11) Document 03/17/17 13:54 [id number] (Rec: 03/17/17 14:09 [id number] MED-C11) Document 03/17/17 18:00 [id number] (Rec: 03/17/17 21:32 [id number] MED-C09) Intake and Output Start: 03/14/17 14: 49 Freq: 06,14,22 Status: Complete Document 03/14/17 17:06 [id number] (Rec: 03/14/17 19:06 [id number] ICU-C25) Document 03/14/17 21:59 [id number] (Rec: 03/14/17 22:00 [id number] ICU-C06) Document 03/14/17 22:46 [id number] (Rec: 03/14/17 22:46 [id number] ICU-C25) Document 03/15/17 06:00 [id number] (Rec: 03/15/17 06:44 [id number] ICU-C06) Document 03/15/17 14:00 NFQ1663 (Rec: 03/15/17 14:40 [id number] ICU-C12) Document 03/15/17 21:51 [id number] (Rec: 03/15/17 21:53 [id number] ICU-M10) Document 03/16/17 06:15 [id number] (Rec: 03/16/17 06:15 [id number] ISDEMO-M05 ) Document 03/16/17 06:50 [id number] (Rec: 03/16/17 06:50 [id number] ICU-M10) Document 03/16/17 09:47 [id number] (Rec: 03/16/17 09:47 [id number] ICU-C11) Document 03/16/17 10:31 [id number] (Rec: 03/16/17 10:31 [id number] ICU-M10) - Physical Exam General Physical Exam Comment: He is lying on an air mattress, his heels are not off the bed. He is very weak and though he can move his hands and feet to command he cannot lift his legs off the bed. General: No Cyanosis, No Jaundice, No Clubbing Skin: Abnormal: Rash - The petechial rash on his abdo/chest is resolving Lungs and Chest: Yes: Chest Expansion Full, Chest Expansion Symetrica, Percussion Note Resonant, Vessicular Breath Sounds. No: Crackles, Wheezes, Respiratory Distress, Use of Accessory Muscles Heart Rate and Rhythm: Regular Additional Cardiovascular: Yes: Normal Heart Sounds. No: Heart Murmur, Pedal Edema Abdominal Exam: Yes: Soft. No: Distention, Abdominal Mass, Abdominal Tenderness - Extremities Cranial Nerves II-XII Intact: Yes Limbs: Abnormal Power Results - Results Lab Results: Laboratory Results - last 24 hr 03/17/17 03/18/17 03/18/17 05:37 07:09 07:10 WBC 8.2 RBC 2.87 L Hgb 9.5 L Hct 29 L MCV 100 H MCH 33 H MCHC 33 RDW 17 H Plt Count 79 L MPV 10 Neut % (Auto) 88.5 H Lymph % (Auto) 5.5 L [place] % (Auto) 4.8 Eos % (Auto) 0.7 Baso % (Auto) 0.5 Absolute Neuts (auto) 7.2 Absolute Lymphs (auto) 0.4 L Absolute Monos (auto) 0.4 Absolute Eos (auto) 0.1 Absolute Basos (auto) 0 Absolute Nucleated RBC 0.08 Nucleated RBC % 1.0 Normal RBC Morphology Not Reportable Polychromasia 1+ Basophilic Stippling 1+ Macrocytosis 1+ Elliptocytes 1+ Sodium 143 Potassium 4.3 Chloride 114 H Carbon Dioxide 23 Anion Gap 6 BUN 46 H Creatinine 1.34 H Est GFR ( Amer) 64.5 Est GFR (Non-Af Amer) 50.2 BUN/Creatinine Ratio 34.3 H Glucose 79 Calcium 8.5 L C-Reactive Protein 26.65 H Assessment - Problem List Assessment: Patient Problems At risk of decubitus ulcer (Acute) DNR (do not resuscitate) (Acute) Hypothermia (Acute) Hypothyroidism (Acute) MRSA nasal colonization (Acute) Medical orders for life-sustaining treatment (MOLST) form in chart (Acute) Sepsis (Acute) Swallowing dysfunction (Acute) Thrombocytopenia (Acute) Urinary tract infection (Acute) Anemia (Chronic) Hyperlipidemia (Chronic) Late effects of acute poliomyelitis (Chronic) S/P cardiac pacemaker procedure (Chronic 03/14/14) Status post AAA (abdominal aortic aneurysm) repair (Chronic) Plan: Hypothermia (Acute) Hypothyroidism (Acute) He had recurrent hypothermia last night. He has warmed up with the aid of a bear hugger. He has hypothyroidism and I have been replacing this parenterally. I will recheck his TFTs - perhaps being euthyroid sick his TSH should have been much higher. I wonder if he was receiving this as an outpatient - he recently changed to a new residency. I will add liothyronine to his thyroid hormone as it has a much shorter half life. I am aware there is a risk to his cardiovascular system of too rapid replacement of thyroid hormone, but there is also a larger risk of hypothermia which is causing failure to thrive. I note that his cortisol 03/14/2017 at 13 :00 in the ED was 18.37. Hence he doesn't have absolute adrenal insufficiency, though perhaps this should be higher. I will taper the cortisol MRSA nasal colonization (Acute) Medical orders for life-sustaining treatment (MOLST) form in chart (Acute) Sepsis (Acute) This is resolved - his CRP is coming down At risk of decubitus ulcer (Acute) I have spoken again to his aid DNR (do not resuscitate) (Acute) Swallowing dysfunction (Acute) ongoing - due to weakness Urinary tract infection (Acute) I will maintain the zosyn another 24 hours Anemia (Chronic) This continues Thrombocytopenia - no progression. 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 He was pretty bright all day yesterday. She was here when he became hypothermic. She agrees with the liothyronine.
[2017-03-18] MEDS: Furosemide TAB* 40 MG PO SCH (09:39)
[2017-03-18] MEDS: Hydrocortisone TAB* 10 MG PO SCH ×2 (09:41→18:07)
[2017-03-18] MEDS: Liothyronine TAB* 5 MCG PO SCH ×2 (09:43→19:51)
[2017-03-18 10:02] LABS: TSH (Thyroid Stimulating Horm) 1.35 mcIU/mL (0.34-5.60)
[2017-03-18 10:05] LABS: Free T4 1.15 ng/dL (0.61-1.12)
[2017-03-18 10:07] LABS: Free T3 2.1 pg/mL (2.5-3.9)
[2017-03-18 10:09] LABS: Total T3 0.54 ng/mL (0.87-1.78)
[2017-03-18 10:14] LABS: Folate 10.96 ng/mL (>3.99)
[2017-03-19] MEDS: ZOSYN 3.375 GM Q8H IVPB SCH ×4 (01:15→04:54)
[2017-03-19] MEDS: Levothyroxine TAB* 150 MCG TAB PO SCH (04:54)
[2017-03-19] MEDS: Docusate CAP* 100 MG PO PRN ×2 (04:54→21:00)
[2017-03-19] MEDS: Furosemide TAB* 40 MG PO SCH (08:39)
[2017-03-19] MEDS: Liothyronine TAB* 5 MCG PO SCH ×2 (08:39→21:00)
[2017-03-19] MEDS: Hydrocortisone TAB* 10 MG PO SCH ×2 (08:39→18:27)
--- NOTE | 2017-03-19 09:49 | PN ---
Subjective - Subjective Reason for Note: Progress Note History: He required a bear hugger overnight to maintain core temperature. This morning he is more awake and conversational. He denies any new symptoms. He had some bleeding from his ravi yesterday evening and I stopped his heparin. He continues to require thickened liquids. He is weak and PT/OT consider he requires acute rehab when he becomes stronger. 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 Flory Wang [employer] Status post AAA (abdominal aortic aneurysm) repair (Chronic) Z98.89, Z86.79 Current Medications: Current Medications Acetaminophen (Tylenol Tab*) 650 mg PO Q4H PRN PRN Reason: FEVER Albuterol/Ipratropium (Duoneb (Albuterol 2.5 Mg/Ipratropium 0.5 Mg)) 1 neb INH Q4H PRN PRN Reason: SOB/WHEEZING Docusate Sodium (Colace Cap*) 100 mg PO DAILY PRN PRN Reason: CONSTIPATION Last Admin: 03/19/17 04:54 Dose: 100 mg Furosemide (Lasix Tab*) 40 mg PO DAILY [facility] Last Admin: 03/19/17 08:39 Dose: 40 mg Hydrocortisone (Cortef Tab*) 40 mg PO 0900 [facility] Last Admin: 03/19/17 08:39 Dose: 40 mg Hydrocortisone (Cortef Tab*) 20 mg PO QPM [facility] Last Admin: 03/18/17 18:07 Dose: 20 mg Piperacillin Sod/Tazobactam (Sod 3.375 gm/ Sodium Chloride) 100 mls @ 200 mls/ hr IVPB Q6HR [facility] Last Admin: 03/19/17 04:54 Dose: 200 mls/hr Levothyroxine Sodium (Synthroid Tab*) 150 mcg PO DAILY@0600 [facility] Last Admin: 03/19/17 04:54 Dose: 150 mcg Liothyronine Sodium (Cytomel Tab*) 10 mcg PO Q12HR [facility] Last Admin: 03/19/17 08:39 Dose: 10 mcg Nystatin (Nystatin Top Powder*) 1 applic TOPICAL TID PRN PRN Reason: RASH Last Admin: 03/15/17 13:37 Dose: 1 powder Ondansetron HCl (Zofran Inj*) 4 mg IV Q4H PRN PRN Reason: NAUSEA Pharmacy Consult (Zosyn Per Pharmacy*) 1 note FOLLOW UP .ZOSYN PER PHARMACY [facility] Home Medications: Home Medications Medication Instructions Recorded Confirmed Type Ascorbic Acid TAB* [Vitamin C 500 mg PO DAILY 07/21/15 03/14/17 History TAB*] Ferrous Sulfate TAB* 325 mg PO DAILY 07/21/15 03/14/17 History Magnesium Oxide TAB* [MagOx 400 400 mg PO BID 07/21/15 03/14/17 History TAB*] Tamsulosin CAP* [Flomax CAP*] 0.4 mg PO DAILY 07/21/15 03/14/17 History Acetaminophen TAB* [Tylenol TAB*] 325 mg PO Q8HR PRN 03/14/17 03/14/17 History Acetaminophen TAB* [Tylenol TAB*] 650 mg PO Q6HR PRN 03/14/17 03/14/17 History Levothyroxine TAB* [Synthroid TAB*] 125 mcg PO DAILY 03/14/17 03/14/17 History Loperamide CAP* [Imodium CAP*] 2 mg PO Q6HR PRN 03/14/17 03/14/17 History Loperamide LIQ* [Imodium LIQ*] 5 ml PO Q12HR PRN 03/14/17 03/14/17 History Metoprolol Succinate XL TAB* 25 mg PO DAILY 03/14/17 03/14/17 History [Toprol XL TAB*] Moisturizing CREAM* [Hydrocerin 1 applic TOPICAL BID 03/14/17 03/14/17 History Cream*] Nystatin CREAM* 1 applic TOPICAL BID 03/14/17 03/14/17 History Omeprazole CAP* [Prilosec CAP* 20 40 mg PO BID 03/14/17 03/14/17 History MG] Psyllium ROLA* [Metamucil ROLA*] 1 pkt PO DAILY 03/14/17 03/14/17 History Sodium Fluoride (Dental) [Denta 1.1 % PO Q12HR 03/14/17 03/14/17 History 5000 Plus] Allergies: Allergies Allergy/AdvReac Type Severity Reaction Status Date / Time No Known Allergies Allergy Verified 05/08/16 07:35 Objective - Vital Signs Vital Signs: Vital Signs 03/18/17 03/18/17 03/18/17 14:00 16:07 20:00 Temperature 98.3 F 98.2 F Pulse Rate Respiratory 20 20 Rate Blood Pressure 111/44 (mmHg) O2 Sat by Pulse 99 Oximetry 03/18/17 03/18/17 03/19/17 20:09 23:09 03:32 Temperature 98.3 F 97.8 F 98.2 F Pulse Rate 80 65 68 Respiratory 20 19 17 Rate Blood Pressure 104/46 133/52 119/54 (mmHg) O2 Sat by Pulse 98 98 100 Oximetry 03/19/17 09:19 Temperature Pulse Rate 68 Respiratory 18 Rate Blood Pressure (mmHg) O2 Sat by Pulse 100 Oximetry - Intake and Output Intake and Output: Intake & Output 03/16/17 03/17/17 03/18/17 03/19/17 11:59 11:59 11:59 11:59 Intake Total 3775 400 240 355 Output Total 1440 3782 373 6724 Balance 2335 -1150 -460 -1545 Weight 202 lb 13.204 oz Intake: IV Fluids 2344 20 ABX - ZOSYN 110 D5W 1/2 NS 1791 NS (0.9%) 443 20 IVPB 1151 125 ABX - ZOSYN 500 125 NS (0.9%) 651 Oral 280 400 240 210 Output: Urine 200 Ravi 1240 2398 071 5593 Other: # Bowel Movements 0 0 0 # Voids 1 ADLs: Meal Record Start: 03/14/17 14: 49 Freq: ,,18 Status: Complete Document 03/14/17 18:00 [id number] (Rec: 03/14/17 18:37 [id number] ICU-C25) Document 03/15/17 09:00 [id number] (Rec: 03/15/17 10:09 [id number] ICU-M10) Document 03/15/17 13:00 [id number] (Rec: 03/15/17 13:58 [id number] ICU-C12) Document 03/15/17 18:00 [id number] (Rec: 03/15/17 18:04 [id number] ICU-M10) Document 03/16/17 09:00 [id number] (Rec: 03/16/17 09:12 [id number] ICU-C12) Document 03/16/17 09:11 [id number] (Rec: 03/16/17 09:12 [id number] ICU-C11) ADLs: Meal Record Start: 03/16/17 16: 40 Freq: DAILY@0900,1400,1800 Status: Active Created 03/16/17 16:40 [id number] (Rec: 03/16/17 16:40 [id number] MED-C09) Document 03/16/17 16:42 [id number] (Rec: 03/16/17 16:43 [id number] MED-C09) Document 03/16/17 18:00 [id number] (Rec: 03/16/17 22:58 [id number] MED-C09) Document 03/17/17 09:00 [id number] (Rec: 03/17/17 11:30 [id number] MED-C11) Document 03/17/17 13:54 [id number] (Rec: 03/17/17 14:09 [id number] MED-C11) Document 03/17/17 18:00 [id number] (Rec: 03/17/17 21:32 [id number] MED-C09) Document 03/18/17 09:00 [id number] (Rec: 03/18/17 14:56 [id number] MED-C09) Document 03/18/17 14:00 [id number] (Rec: 03/18/17 14:58 [id number] MED-C09) Document 03/18/17 18:00 [id number] (Rec: 03/18/17 22:05 [id number] MED-C11) Intake and Output Start: 03/14/17 14: 49 Freq: 06,14,22 Status: Complete Document 03/14/17 17:06 [id number] (Rec: 03/14/17 19:06 [id number] ICU-C25) Document 03/14/17 21:59 [id number] (Rec: 03/14/17 22:00 [id number] ICU-C06) Document 03/14/17 22:46 [id number] (Rec: 03/14/17 22:46 [id number] ICU-C25) Document 03/15/17 06:00 [id number] (Rec: 03/15/17 06:44 [id number] ICU-C06) Document 03/15/17 14:00 [id number] (Rec: 03/15/17 14:40 [id number] ICU-C12) Document 03/15/17 21:51 [id number] (Rec: 03/15/17 21:53 [id number] ICU-M10) Document 03/16/17 06:15 [id number] (Rec: 03/16/17 06:15 [id number] [facility] ) Document 03/16/17 06:50 [id number] (Rec: 03/16/17 06:50 [id number] ICU-M10) Document 03/16/17 09:47 [id number] (Rec: 03/16/17 09:47 [id number] ICU-C11) Document 03/16/17 10:31 [id number] (Rec: 03/16/17 10:31 [id number] ICU-M10) - Physical Exam General: No Cyanosis, Yes Anemia, No Jaundice, No Clubbing Lungs and Chest: Yes: Chest Expansion Full, Chest Expansion Symetrica, Percussion Note Resonant, Vessicular Breath Sounds. No: Crackles, Wheezes Heart Rate and Rhythm: Regular JVP: Not Elevated Additional Cardiovascular: Yes: Normal Heart Sounds. No: Heart Murmur, Pedal Edema Abdominal Exam: Yes: Soft, Bowel Sounds Present. No: Distention, Abdominal Tenderness - Extremities Cranial Nerves II-XII Intact: Yes Limbs: Abnormal Power - weak but present - Neuro Orientation: Person, Place Speech: Normal - Hoarse voice Results - Results Lab Results: Laboratory Results - last 24 hr 03/18/17 07:10 Vitamin B12 1326 H Folate 10.96 TSH 1.35 Free T4 1.15 H Free T3 2.10 L Total T3 0.54 L Assessment - Problem List Assessment: Patient Problems At risk of decubitus ulcer (Acute) DNR (do not resuscitate) (Acute) Hematuria (Acute) Hypothermia (Acute) Hypothyroidism (Acute) MRSA nasal colonization (Acute) Medical orders for life-sustaining treatment (MOLST) form in chart (Acute) Sepsis (Acute) Swallowing dysfunction (Acute) Thrombocytopenia (Acute) Urinary tract infection (Acute) Anemia (Chronic) Hyperlipidemia (Chronic) Late effects of acute poliomyelitis (Chronic) S/P cardiac pacemaker procedure (Chronic 03/14/14) Status post AAA (abdominal aortic aneurysm) repair (Chronic) Plan: Hypothyroidism (Acute)Hypothermia (Acute) His TSH is on target prior to receiving liothyronine 10 mcg bid. I am using this pharmacologically in order to stimulate thermogenesis Urinary tract infection (Acute) he developed hematuria. I stopped his heparin as he has thrombocytopenia (this was present at entry) and I am removing his Ravi catheter Swallowing dysfunction (Acute) He is eating - oatmeal for breakfast MRSA nasal colonization (Acute) Medical orders for life-sustaining treatment (MOLST) form in chart (Acute) Sepsis (Acute) Resolved Thrombocytopenia (Acute) He had a petechial rash at entry and his platelets were low at presentation. I will start him arixtra 2.5 mg qdaily Anemia (Chronic) ongoing Hyperlipidemia (Chronic) secondary diagnosis Late effects of acute poliomyelitis (Chronic) S/P cardiac pacemaker procedure (Chronic 03/14/14) Status post AAA (abdominal aortic aneurysm) repair (Chronic) At risk of decubitus ulcer (Acute) I reviewed his sacral area this morning - no skin breakdown DNR (do not resuscitate) (Acute) I spoke with his grand-daughter and discussed his progress.
[2017-03-19] MEDS: Fondaparinux* 2.5 MG/0.5 ML SYRINGE SUBCUT SCH (13:59)
[2017-03-19] MEDS: Amoxicillin/Clavulanate O.SYR* 400 MG/5 ML ORAL.SYRIN PO SCH (21:00)
[2017-03-20] MEDS: Levothyroxine TAB* 150 MCG TAB PO SCH (05:56)
[2017-03-20] MEDS: Furosemide TAB* 40 MG PO SCH (08:52)
[2017-03-20] MEDS: Liothyronine TAB* 5 MCG PO SCH ×2 (08:53→21:06)
[2017-03-20] MEDS: Hydrocortisone TAB* 10 MG PO SCH ×2 (08:53→18:35)
[2017-03-20] MEDS: Amoxicillin/Clavulanate O.SYR* 400 MG/5 ML ORAL.SYRIN PO SCH ×2 (09:02→22:03)
[2017-03-20 12:19] LABS: Corrected Retic Count 1.3 % (0.5-1.5); Hematocrit 29 % (42-52); Hemoglobin 9.6 g/dl (14.0-18.0); Immature Retic Fraction 0.64; Mean Corpuscular HGB Conc 33 g/dl (31-36); Mean Corpuscular Hemoglobin 33 pg (27-31); Mean Corpuscular Volume 100 fL (80-94); Mean Platelet Volume 10 um3 (7.4-10.4); Red Blood Count 2.87 10^6/ul (4.0-5.4); Red Cell Distribution Width 17 % (10.5-15); White Blood Count 9.1 10^3/ul (3.5-10.8)
[2017-03-20 12:20] LABS: Comments Flag Yes
[2017-03-20 12:21] LABS: Comments Flag Yes
[2017-03-20 12:29] LABS: BUN/Creatinine Ratio 27.5 (8-20); Calcium 8.4 mg/dL (8.6-10.3); EGFR African American 81.9 (>60); EGFR Non-African American 63.7 (>60); Globulin 3.1 g/dL (2-4); Potassium 3.7 mmol/L (3.5-5.0); Total Bilirubin 0.6 mg/dL (0.2-1.0); Total Protein 6.1 g/dL (6.4-8.9)
[2017-03-20 12:47] LABS: Prealbumin 11 mg/dL (18-38)
[2017-03-20] MEDS: Fondaparinux* 2.5 MG/0.5 ML SYRINGE SUBCUT SCH (14:10)
[2017-03-20] MEDS: Ergocalciferol CAP* 50000 UNIT PO ONE ×2 (16:00→16:58)
[2017-03-20] MEDS ORDERED: Iodixanol* (CONTRAST) 320 MG/ML 100 ML SDV IV ONE (17:27)
--- NOTE | 2017-03-20 18:14 | RAD ---
CLINICAL HISTORY: Bloody urine, swollen scrotum, history of colon cancer COMPARISON: May 08, 2016 TECHNIQUE: Multiple contiguous axial CT scans were obtained of the abdomen and pelvis after the administration of intravenous contrast. Coronal and sagittal multiplanar reformations are submitted for review. Oral contrast was not administered. Delayed images were obtained through the abdomen and pelvis. FINDINGS: LUNG BASES: There are moderate bilateral pleural effusions with compressive atelectasis of the lung bases bilaterally. LIVER: The liver is diffusely low in attenuation compared to the spleen. There are no focal hepatic parenchymal masses. BILE DUCTS: There is no intrahepatic or extrahepatic biliary dilatation. GALLBLADDER: The gallbladder is normal, without pericholecystic inflammatory change. PANCREAS: There is low-attenuation lesion of the head of the pancreas. This is decreased in size compared to the previous examination. There is mild atrophy of the body of the pancreas. There is no appreciable pancreatic ductal dilatation. SPLEEN: Normal in size and appearance. UPPER GI TRACT: Evaluation of the gastrointestinal tract is limited by incomplete gastric distention. The upper GI tract is unremarkable. SMALL BOWEL AND MESENTERY: The small bowel is normal in contour, course, and caliber. There is no obstruction or dilatation. COLON: The colon is normal in contour, course, caliber. There is no pericolonic inflammatory change. ADRENALS: There is a stable right adrenal nodule. KIDNEYS: There appears to be dislocated right middle collecting system with atrophy of the lower pole moiety on the right there is no appreciable hydronephrosis or nephrolithiasis. BLADDER: The bladder is smooth in contour. PELVIC ORGANS: The prostate gland is normal. The seminal vesicles are symmetric. AORTA: There is atherosclerosis of the abdominal aorta. The patient appears to be status post aortic graft. IVC: Unremarkable LYMPH NODES: There is no lymphadenopathy by size criteria. ABDOMINAL WALL: There is diffuse subcutaneous edema. BONES AND SOFT TISSUES: There is diffuse osteopenia. Degenerative changes are noted along the spine. There are stable chronic compression deformities of the thoracolumbar junction. There is a stable sclerosis of the left pubis, with the appearance suggestive of chronic fracture. OTHER: There is a small amount of ascites IMPRESSION: 1. MODERATE BILATERAL PLEURAL EFFUSIONS WITH COMPRESSIVE ATELECTASIS OF THE LUNG BASES BILATERALLY. 2. SMALL AMOUNT OF ASCITES. 3. THERE IS BEEN INTERVAL DECREASE IN SIZE OF A CYSTIC LESION OF THE PANCREATIC HEAD. 4. OTHERWISE, THERE IS BEEN NO SIGNIFICANT CHANGE COMPARED TO MAY 08, 2016
[2017-03-21] MEDS: Levothyroxine TAB* 150 MCG TAB PO SCH (06:06)
--- NOTE | 2017-03-21 07:23 | PN ---
Subjective - Subjective Reason for Note: Progress Note History: He is yet more conversational today "when can I get out of here". He denies any new symptoms. He appears to have maintained his temperature overnight. He denies cough, chest pain, dyspnea. He has no abdominal pain or distress. 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 Flory Wang [employer] Status post AAA (abdominal aortic aneurysm) repair (Chronic) Z98.89, Z86.79 Current Medications: Current Medications Acetaminophen (Tylenol Tab*) 650 mg PO Q4H PRN PRN Reason: FEVER Albuterol/Ipratropium (Duoneb (Albuterol 2.5 Mg/Ipratropium 0.5 Mg)) 1 neb INH Q4H PRN PRN Reason: SOB/WHEEZING Amoxicillin/Clavulanate Potassium (Augmentin Oral Syringe*) 875 mg PO BID [facility] Last Admin: 03/20/17 22:03 Dose: 875 mg Docusate Sodium (Colace Cap*) 100 mg PO DAILY PRN PRN Reason: CONSTIPATION Last Admin: 03/19/17 21:00 Dose: 100 mg Fondaparinux (Arixtra*) 2.5 mg SUBCUT Q24H [facility] Last Admin: 03/20/17 14:10 Dose: 2.5 mg Furosemide (Lasix Tab*) 40 mg PO DAILY [facility] Last Admin: 03/20/17 08:52 Dose: 40 mg Hydrocortisone (Cortef Tab*) 40 mg PO 0900 [facility] Last Admin: 03/20/17 08:53 Dose: 40 mg Hydrocortisone (Cortef Tab*) 20 mg PO QPM [facility] Last Admin: 03/20/17 18:35 Dose: 20 mg Levothyroxine Sodium (Synthroid Tab*) 150 mcg PO DAILY@0600 [facility] Last Admin: 03/21/17 06:06 Dose: 150 mcg Liothyronine Sodium (Cytomel Tab*) 10 mcg PO Q12HR [facility] Last Admin: 03/20/17 21:06 Dose: 10 mcg Nystatin (Nystatin Top Powder*) 1 applic TOPICAL TID PRN PRN Reason: RASH Last Admin: 03/15/17 13:37 Dose: 1 powder Home Medications: Home Medications Medication Instructions Recorded Confirmed Type Ascorbic Acid TAB* [Vitamin C 500 mg PO DAILY 07/21/15 03/14/17 History TAB*] Ferrous Sulfate TAB* 325 mg PO DAILY 07/21/15 03/14/17 History Magnesium Oxide TAB* [MagOx 400 400 mg PO BID 07/21/15 03/14/17 History TAB*] Tamsulosin CAP* [Flomax CAP*] 0.4 mg PO DAILY 07/21/15 03/14/17 History Acetaminophen TAB* [Tylenol TAB*] 325 mg PO Q8HR PRN 03/14/17 03/14/17 History Acetaminophen TAB* [Tylenol TAB*] 650 mg PO Q6HR PRN 03/14/17 03/14/17 History Levothyroxine TAB* [Synthroid TAB*] 125 mcg PO DAILY 03/14/17 03/14/17 History Loperamide CAP* [Imodium CAP*] 2 mg PO Q6HR PRN 03/14/17 03/14/17 History Loperamide LIQ* [Imodium LIQ*] 5 ml PO Q12HR PRN 03/14/17 03/14/17 History Metoprolol Succinate XL TAB* 25 mg PO DAILY 03/14/17 03/14/17 History [Toprol XL TAB*] Moisturizing CREAM* [Hydrocerin 1 applic TOPICAL BID 03/14/17 03/14/17 History Cream*] Nystatin CREAM* 1 applic TOPICAL BID 03/14/17 03/14/17 History Omeprazole CAP* [Prilosec CAP* 20 40 mg PO BID 03/14/17 03/14/17 History MG] Psyllium ROLA* [Metamucil ROLA*] 1 pkt PO DAILY 03/14/17 03/14/17 History Sodium Fluoride (Dental) [Denta 1.1 % PO Q12HR 03/14/17 03/14/17 History 5000 Plus] Allergies: Allergies Allergy/AdvReac Type Severity Reaction Status Date / Time No Known Allergies Allergy Verified 05/08/16 07:35 Objective - Vital Signs Vital Signs: Vital Signs 03/20/17 03/20/17 03/20/17 07:43 08:00 10:01 Temperature 97.3 F Pulse Rate 61 74 Respiratory 21 14 14 Rate Blood Pressure 111/57 (mmHg) O2 Sat by Pulse 94 Oximetry 03/20/17 03/20/17 03/20/17 12:06 20:00 20:34 Temperature 97.9 F 98.1 F Pulse Rate 78 Respiratory 18 20 Rate Blood Pressure 106/61 (mmHg) O2 Sat by Pulse 92 Oximetry 03/21/17 03/21/17 00:11 03:22 Temperature 97.6 F 98.1 F Pulse Rate 76 67 Respiratory 16 18 Rate Blood Pressure 115/63 125/63 (mmHg) O2 Sat by Pulse 94 95 Oximetry - Intake and Output Intake and Output: Intake & Output 03/18/17 03/19/17 03/20/17 03/21/17 11:59 11:59 11:59 11:59 Intake Total 240 575 360 240 Output Total 700 1900 1500 Balance -460 1325 -1140 240 Intake: IV Fluids 20 NS (0.9%) 20 IVPB 125 ABX - ZOSYN 125 Oral 240 430 360 240 Output: Maguire 700 1900 1500 Other: Estimated Void Medium Medium # Bowel Movements 0 0 1 1 Estimated Stool Amount Medium # Voids 1 2 1 ADLs: Meal Record Start: 03/14/17 14: 49 Freq: 09,13,18 Status: Complete Document 03/14/17 18:00 [id number] (Rec: 03/14/17 18:37 [id number] ICU-C25) Document 03/15/17 09:00 [id number] (Rec: 03/15/17 10:09 [id number] ICU-M10) Document 03/15/17 13:00 [id number] (Rec: 03/15/17 13:58 [id number] ICU-C12) Document 03/15/17 18:00 [id number] (Rec: 03/15/17 18:04 [id number] ICU-M10) Document 03/16/17 09:00 [id number] (Rec: 03/16/17 09:12 [id number] ICU-C12) Document 03/16/17 09:11 [id number] (Rec: 03/16/17 09:12 [id number] ICU-C11) ADLs: Meal Record Start: 03/16/17 16: 40 Freq: DAILY@0900,1400,1800 Status: Active Created 03/16/17 16:40 [id number] (Rec: 03/16/17 16:40 [id number] MED-C09) Document 03/16/17 16:42 [id number] (Rec: 03/16/17 16:43 [id number] MED-C09) Document 03/16/17 18:00 [id number] (Rec: 03/16/17 22:58 [id number] MED-C09) Document 03/17/17 09:00 [id number] (Rec: 03/17/17 11:30 [id number] MED-C11) Document 03/17/17 13:54 [id number] (Rec: 03/17/17 14:09 [id number] MED-C11) Document 03/17/17 18:00 [id number] (Rec: 03/17/17 21:32 [id number] MED-C09) Document 03/18/17 09:00 [id number] (Rec: 03/18/17 14:56 [id number] MED-C09) Document 03/18/17 14:00 [id number] (Rec: 03/18/17 14:58 [id number] MED-C09) Document 03/18/17 18:00 [id number] (Rec: 03/18/17 22:05 [id number] MED-C11) Document 03/19/17 09:00 [id number] (Rec: 03/19/17 11:46 [id number] MED-C11) Document 03/19/17 14:00 [id number] (Rec: 03/19/17 15:16 [id number] MED-C11) Document 03/19/17 18:00 [id number] (Rec: 03/19/17 18:42 [id number] MED-C11) Document 03/20/17 14:00 [id number] (Rec: 03/20/17 15:30 [id number] MED-C11) Document 03/20/17 18:00 [id number] (Rec: 03/20/17 22:39 [id number] MED-C11) Intake and Output Start: 03/14/17 14: 49 Freq: 06,14,22 Status: Complete Document 03/14/17 17:06 [id number] (Rec: 03/14/17 19:06 [id number] ICU-C25) Document 03/14/17 21:59 [id number] (Rec: 03/14/17 22:00 [id number] ICU-C06) Document 03/14/17 22:46 [id number] (Rec: 03/14/17 22:46 [id number] ICU-C25) Document 03/15/17 06:00 [id number] (Rec: 03/15/17 06:44 [id number] ICU-C06) Document 03/15/17 14:00 [id number] (Rec: 03/15/17 14:40 [id number] ICU-C12) Document 03/15/17 21:51 [id number] (Rec: 03/15/17 21:53 [id number] ICU-M10) Document 03/16/17 06:15 [id number] (Rec: 03/16/17 06:15 [id number] ISDEMO-M05 ) Document 03/16/17 06:50 [id number] (Rec: 03/16/17 06:50 [id number] ICU-M10) Document 03/16/17 09:47 [id number] (Rec: 03/16/17 09:47 [id number] ICU-C11) Document 03/16/17 10:31 [id number] (Rec: 03/16/17 10:31 [id number] ICU-M10) - Physical Exam General: No Cyanosis, Yes Anemia, No Jaundice, No Clubbing Lungs and Chest: Yes: Chest Expansion Full, Chest Expansion Symetrica, Percussion Note Resonant, Vessicular Breath Sounds. No: Crackles, Wheezes, Respiratory Distress, Use of Accessory Muscles Heart Rate and Rhythm: Regular Additional Cardiovascular: Yes: Normal Heart Sounds. No: Heart Murmur, Pedal Edema Abdominal Exam: Yes: Soft, Bowel Sounds Present. No: Abdominal Tenderness - Extremities Cranial Nerves II-XII Intact: Yes Limbs: Abnormal Power - Neuro Orientation: Person, Place Speech: Normal Results - Results Lab Results: Laboratory Results - last 24 hr 03/20/17 03/20/17 03/20/17 12:01 12:01 12:01 WBC 9.1 RBC 2.87 L RBC (Retic) 2.87 L Hgb 9.6 L Hct 29 L HCT (Retic) 29 L MCV 100 H MCH 33 H MCHC 33 RDW 17 H Plt Count 77 L MPV 10 Neut % (Auto) 90.7 H Lymph % (Auto) 3.6 L Sawyer % (Auto) 4.3 Eos % (Auto) 1.2 Baso % (Auto) 0.2 Absolute Neuts (auto) 8.2 H Absolute Lymphs (auto) 0.3 L Absolute Monos (auto) 0.4 Absolute Eos (auto) 0.1 Absolute Basos (auto) 0 Absolute Nucleated RBC 0.04 Nucleated RBC % 0.5 Retic Count, Calc 2.0 H Corrected Retic Count 1.3 Retic Shift Factor 2.0 Retic Production Index 0.70 Immature Retic Fraction 0.64 Mean Retic Volume 151.7 Sodium 146 H Potassium 3.7 Chloride 114 H Carbon Dioxide 27 Anion Gap 5 BUN 30 H Creatinine 1.09 Est GFR ( Amer) 81.9 Est GFR (Non-Af Amer) 63.7 BUN/Creatinine Ratio 27.5 H Glucose 114 H Calcium 8.4 L Total Bilirubin 0.60 AST 29 ALT 17 Alkaline Phosphatase 82 Total Protein 6.1 L Albumin 3.0 L Globulin 3.1 Albumin/Globulin Ratio 1.0 Prealbumin 11 L 25-OH Vitamin D Total < 7.0 L Assessment - Problem List Assessment: Patient Problems At risk of decubitus ulcer (Acute) DNR (do not resuscitate) (Acute) Hematuria (Acute) Hypothermia (Acute) Hypothyroidism (Acute) MRSA nasal colonization (Acute) Malnutrition (Acute) Medical orders for life-sustaining treatment (MOLST) form in chart (Acute) Sepsis (Acute) Swallowing dysfunction (Acute) Thrombocytopenia (Acute) Urinary tract infection (Acute) Vitamin D deficiency (Acute) Anemia (Chronic) Hyperlipidemia (Chronic) Late effects of acute poliomyelitis (Chronic) S/P cardiac pacemaker procedure (Chronic 03/14/14) Status post AAA (abdominal aortic aneurysm) repair (Chronic) Plan: Hypothermia (Acute) He appears to be maintaining his body temperature Hypothyroidism (Acute) He is receiving liothyronine and levothryoxine - labs pending Malnutrition (Acute) Vitamin D deficiency (Acute) Dr. Genesis Nuñez ordered a pre -albumin and 25 OH vit D. He clearly is malnourished. I will start him on Vit D supplementation and obtain a dietitian consultation Sepsis (Acute) Urinary tract infection (Acute) resolved - completing a course of amox-clav po Swallowing dysfunction (Acute) we will reassess Thrombocytopenia (Acute) ongoing despite stopping the heparin Anemia (Chronic) ongoing - not iron deficient, no evidence of hemolysis Hyperlipidemia (Chronic) secondary diagnosis Late effects of acute poliomyelitis (Chronic) S/P cardiac pacemaker procedure (Chronic 03/14/14) Status post AAA (abdominal aortic aneurysm) repair (Chronic) At risk of decubitus ulcer (Acute) DNR (do not resuscitate) (Acute) Hematuria (Acute) inactive MRSA nasal colonization (Acute) Medical orders for life-sustaining treatment (MOLST) form in chart (Acute) Phone call to daughter Elle - she has spoken to [facility] - they can take him back. I plan for discharge tomorrow.
[2017-03-21] MEDS: Liothyronine TAB* 5 MCG PO SCH ×2 (09:08→20:14)
[2017-03-21] MEDS: Furosemide TAB* 40 MG PO SCH (09:08)
[2017-03-21] MEDS: Hydrocortisone TAB* 10 MG PO SCH ×2 (09:09→20:14)
[2017-03-21] MEDS: Amoxicillin/Clavulanate O.SYR* 400 MG/5 ML ORAL.SYRIN PO SCH ×2 (09:10→20:19)
[2017-03-21 10:02] LABS: BUN/Creatinine Ratio 27.4 (8-20); C Reactive Protein 19.2 mg/L (< 5.00); Calcium 8.5 mg/dL (8.6-10.3); EGFR African American 84.6 (>60); EGFR Non-African American 65.8 (>60); Potassium 3.7 mmol/L (3.5-5.0)
[2017-03-21 13:04] LABS: Free T3 3.3 pg/mL (2.5-3.9)
[2017-03-21 13:08] LABS: Total T3 0.81 ng/mL (0.87-1.78)
[2017-03-21] MEDS: Fondaparinux* 2.5 MG/0.5 ML SYRINGE SUBCUT SCH (13:46)
[2017-03-21] MEDS: Nystatin TOP POWDER* 15 GM BTL TOPICAL PRN (15:17)
[2017-03-22] MEDS: Levothyroxine TAB* 150 MCG TAB PO SCH (06:30)
[2017-03-22] MEDS: Nystatin TOP POWDER* 15 GM BTL TOPICAL PRN (08:28)
[2017-03-22] MEDS: Amoxicillin/Clavulanate O.SYR* 400 MG/5 ML ORAL.SYRIN PO SCH ×2 (08:28→20:09)
[2017-03-22] MEDS: Hydrocortisone TAB* 10 MG PO SCH ×2 (08:28→20:09)
[2017-03-22] MEDS: Liothyronine TAB* 5 MCG PO SCH ×2 (08:28→20:09)
[2017-03-22] MEDS: Furosemide TAB* 40 MG PO SCH (08:29)
--- NOTE | 2017-03-22 08:39 | PN ---
Subjective - Subjective Reason for Note: Progress Note History: He is tachypneic this morning, wheezing and coughing. He is not fully aware of this. He denies chest pain. He is not receiving IVF. I have been giving him furosemide 40 mg po qdaily. 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 Flory Wang [employer] Status post AAA (abdominal aortic aneurysm) repair (Chronic) Z98.89, Z86.79 Current Medications: Current Medications Acetaminophen (Tylenol Tab*) 650 mg PO Q4H PRN PRN Reason: FEVER Albuterol/Ipratropium (Duoneb (Albuterol 2.5 Mg/Ipratropium 0.5 Mg)) 1 neb INH Q4H PRN PRN Reason: SOB/WHEEZING Amoxicillin/Clavulanate Potassium (Augmentin Oral Syringe*) 875 mg PO BID [facility] Last Admin: 03/21/17 20:19 Dose: 875 mg Docusate Sodium (Colace Cap*) 100 mg PO DAILY PRN PRN Reason: CONSTIPATION Last Admin: 03/19/17 21:00 Dose: 100 mg Fondaparinux (Arixtra*) 2.5 mg SUBCUT Q24H [facility] Last Admin: 03/21/17 13:46 Dose: 2.5 mg Furosemide (Lasix Tab*) 40 mg PO DAILY [facility] Last Admin: 03/21/17 09:08 Dose: 40 mg Hydrocortisone (Cortef Tab*) 10 mg PO BEDTIME [facility] Last Admin: 03/21/17 20:14 Dose: 10 mg Hydrocortisone (Cortef Tab*) 20 mg PO DAILY [facility] Last Admin: 03/21/17 09:09 Dose: 20 mg Levothyroxine Sodium (Synthroid Tab*) 150 mcg PO DAILY@0600 [facility] Last Admin: 03/22/17 06:30 Dose: 150 mcg Liothyronine Sodium (Cytomel Tab*) 10 mcg PO Q12HR [facility] Last Admin: 03/21/17 20:14 Dose: 10 mcg Nystatin (Nystatin Top Powder*) 1 applic TOPICAL TID PRN PRN Reason: RASH Last Admin: 03/21/17 15:17 Dose: 1 applic Home Medications: Home Medications Medication Instructions Recorded Confirmed Type Ascorbic Acid TAB* [Vitamin C 500 mg PO DAILY 07/21/15 03/14/17 History TAB*] Ferrous Sulfate TAB* 325 mg PO DAILY 07/21/15 03/14/17 History Magnesium Oxide TAB* [MagOx 400 400 mg PO BID 07/21/15 03/14/17 History TAB*] Tamsulosin CAP* [Flomax CAP*] 0.4 mg PO DAILY 07/21/15 03/14/17 History Acetaminophen TAB* [Tylenol TAB*] 325 mg PO Q8HR PRN 03/14/17 03/14/17 History Acetaminophen TAB* [Tylenol TAB*] 650 mg PO Q6HR PRN 03/14/17 03/14/17 History Levothyroxine TAB* [Synthroid TAB*] 125 mcg PO DAILY 03/14/17 03/14/17 History Loperamide CAP* [Imodium CAP*] 2 mg PO Q6HR PRN 03/14/17 03/14/17 History Loperamide LIQ* [Imodium LIQ*] 5 ml PO Q12HR PRN 03/14/17 03/14/17 History Metoprolol Succinate XL TAB* 25 mg PO DAILY 03/14/17 03/14/17 History [Toprol XL TAB*] Moisturizing CREAM* [Hydrocerin 1 applic TOPICAL BID 03/14/17 03/14/17 History Cream*] Nystatin CREAM* 1 applic TOPICAL BID 03/14/17 03/14/17 History Omeprazole CAP* [Prilosec CAP* 20 40 mg PO BID 03/14/17 03/14/17 History MG] Psyllium ROLA* [Metamucil ROLA*] 1 pkt PO DAILY 03/14/17 03/14/17 History Sodium Fluoride (Dental) [Denta 1.1 % PO Q12HR 03/14/17 03/14/17 History 5000 Plus] Allergies: Allergies Allergy/AdvReac Type Severity Reaction Status Date / Time No Known Allergies Allergy Verified 05/08/16 07:35 Objective - Vital Signs Vital Signs: Vital Signs 03/21/17 03/21/17 03/21/17 09:42 10:49 13:18 Temperature 98.0 F Pulse Rate 72 Respiratory 18 18 Rate Blood Pressure 132/64 (mmHg) O2 Sat by Pulse 95 94 Oximetry 03/21/17 03/21/17 03/21/17 15:31 15:46 17:03 Temperature 97.7 F Pulse Rate 67 Respiratory 18 20 Rate Blood Pressure 132/80 140/60 (mmHg) O2 Sat by Pulse 94 97 Oximetry 03/21/17 03/21/17 03/21/17 20:00 20:14 23:48 Temperature 97.5 F 97.4 F Pulse Rate 73 83 Respiratory 20 20 20 Rate Blood Pressure 136/89 143/70 (mmHg) O2 Sat by Pulse 97 93 Oximetry 03/22/17 03/22/17 03:38 08:08 Temperature 97.6 F 97.6 F Pulse Rate 95 65 Respiratory 18 23 Rate Blood Pressure 151/81 138/78 (mmHg) O2 Sat by Pulse 97 96 Oximetry - Intake and Output Intake and Output: Intake & Output 03/19/17 03/20/17 03/21/17 03/22/17 11:59 11:59 11:59 11:59 Intake Total 575 360 360 300 Output Total 1900 1500 Balance -1325 -1140 360 300 Intake: IV Fluids 20 NS (0.9%) 20 IVPB 125 ABX - ZOSYN 125 Oral 430 360 360 300 Output: Maguire 1900 1500 Other: Estimated Void Medium Medium Small # Bowel Movements 0 1 1 1 Estimated Stool Amount Medium # Voids 1 2 1 1 ADLs: Meal Record Start: 03/14/17 14: 49 Freq: ,,18 Status: Complete Document 03/14/17 18:00 [id number] (Rec: 03/14/17 18:37 [id number] ICU-C25) Document 03/15/17 09:00 [id number] (Rec: 03/15/17 10:09 [id number] ICU-M10) Document 03/15/17 13:00 [id number] (Rec: 03/15/17 13:58 [id number] ICU-C12) Document 03/15/17 18:00 [id number] (Rec: 03/15/17 18:04 [id number] ICU-M10) Document 03/16/17 09:00 [id number] (Rec: 03/16/17 09:12 [id number] ICU-C12) Document 03/16/17 09:11 [id number] (Rec: 03/16/17 09:12 [id number] ICU-C11) ADLs: Meal Record Start: 03/16/17 16: 40 Freq: DAILY@0900,1400,1800 Status: Active Created 03/16/17 16:40 [id number] (Rec: 03/16/17 16:40 [id number] MED-C09) Document 03/16/17 16:42 [id number] (Rec: 03/16/17 16:43 RFF4076 MED-C09) Document 03/16/17 18:00 [id number] (Rec: 03/16/17 22:58 [id number] MED-C09) Document 03/17/17 09:00 [id number] (Rec: 03/17/17 11:30 [id number] MED-C11) Document 03/17/17 13:54 YMB0711 (Rec: 03/17/17 14:09 [id number] MED-C11) Document 03/17/17 18:00 HBZ2641 (Rec: 03/17/17 21:32 YYQ1290 MED-C09) Document 03/18/17 09:00 RFW0753 (Rec: 03/18/17 14:56 EYT6946 MED-C09) Document 03/18/17 14:00 PPH1801 (Rec: 03/18/17 14:58 IBE4129 MED-C09) Document 03/18/17 18:00 HIJ0929 (Rec: 03/18/17 22:05 AHO1799 MED-C11) Document 03/19/17 09:00 VXR3679 (Rec: 03/19/17 11:46 YMI2206 MED-C11) Document 03/19/17 14:00 FQD8067 (Rec: 03/19/17 15:16 ESP1105 MED-C11) Document 03/19/17 18:00 [id number] (Rec: 03/19/17 18:42 WQA2439 MED-C11) Document 03/20/17 14:00 GVT2418 (Rec: 03/20/17 15:30 ESX9250 MED-C11) Document 03/20/17 18:00 ZPS9224 (Rec: 03/20/17 22:39 OYU0423 MED-C11) Document 03/21/17 09:00 KLS3257 (Rec: 03/21/17 14:58 MGY7218 MED-C09) Document 03/21/17 14:00 PIC0512 (Rec: 03/21/17 15:00 [id number] MED-C09) Document 03/21/17 18:35 [id number] (Rec: 03/21/17 18:35 SKL8345 MED-C15) Intake and Output Start: 03/14/17 14: 49 Freq: 06,14,22 Status: Complete Document 03/14/17 17:06 [id number] (Rec: 03/14/17 19:06 LWM1588 ICU-C25) Document 03/14/17 21:59 MKX2903 (Rec: 03/14/17 22:00 WJL9582 ICU-C06) Document 03/14/17 22:46 MAO1954 (Rec: 03/14/17 22:46 [id number] ICU-C25) Document 03/15/17 06:00 LJB1503 (Rec: 03/15/17 06:44 PYC1930 ICU-C06) Document 03/15/17 14:00 [id number] (Rec: 03/15/17 14:40 HKN3631 ICU-C12) Document 03/15/17 21:51 QTH6711 (Rec: 03/15/17 21:53 UPW8768 ICU-M10) Document 03/16/17 06:15 ICG3054 (Rec: 03/16/17 06:15 IZS2578 ISDESC-M05 ) Document 03/16/17 06:50 [id number] (Rec: 03/16/17 06:50 HTQ2936 ICU-M10) Document 03/16/17 09:47 [id number] (Rec: 03/16/17 09:47 [id number] ICU-C11) Document 03/16/17 10:31 LTB3530 (Rec: 03/16/17 10:31 [id number] ICU-M10) - Physical Exam General Physical Exam Comment: He has tachypnea, he has a non-productive cough when seated forward, and there is expiratory wheeze. General: No Cyanosis, Yes Anemia, No Jaundice, No Clubbing Lungs and Chest: Yes: Chest Expansion Full, Chest Expansion Symetrica, Vessicular Breath Sounds, Crackles, Wheezes, Respiratory Distress, Other - tachypnea. No: Use of Accessory Muscles Heart Rate and Rhythm: Regular JVP: Elevated Additional Cardiovascular: Yes: Normal Heart Sounds. No: Heart Murmur, Pedal Edema Abdominal Exam: Yes: Soft, Bowel Sounds Present. No: Distention, Abdominal Tenderness Results - Results Lab Results: Laboratory Results - last 24 hr 03/21/17 09:14 Sodium 150 H Potassium 3.7 Chloride 113 H Carbon Dioxide 31 Anion Gap 6 BUN 29 H Creatinine 1.06 Est GFR ( Amer) 84.6 Est GFR (Non-Af Amer) 65.8 BUN/Creatinine Ratio 27.4 H Glucose 82 Calcium 8.5 L Iron 79 TIBC 273 % Saturation 29 Unsat Iron Binding 194 Ferritin 356.0 H C-Reactive Protein 19.20 H Free T3 3.30 Total T3 0.81 L Assessment - Problem List Assessment: Patient Problems At risk of decubitus ulcer (Acute) DNR (do not resuscitate) (Acute) Hematuria (Acute) Hypothermia (Acute) Hypothyroidism (Acute) MRSA nasal colonization (Acute) Malnutrition (Acute) Medical orders for life-sustaining treatment (MOLST) form in chart (Acute) Sepsis (Acute) Swallowing dysfunction (Acute) Tachypnea (Acute) Thrombocytopenia (Acute) Urinary tract infection (Acute) Vitamin D deficiency (Acute) Anemia (Chronic) Hyperlipidemia (Chronic) Late effects of acute poliomyelitis (Chronic) S/P cardiac pacemaker procedure (Chronic 03/14/14) Status post AAA (abdominal aortic aneurysm) repair (Chronic) Plan: Tachypnea (Acute) This is new this morning. I note he has been hemodynamically stable and maintaining his O2 saturation. He is wheezing. The differential diagnosis is pulmonary edema from heart failure or volume overload, early pneumonia or bronchitis. I favor the former as his CRP was low yesterday. I will check a CXR, P3, pro-calcitonin, BNP, CBC and EKG. I will keep him as an inpatient an extra day. I will restart O2 therapy and give him furosemide IV empirically and respiratory therapy At risk of decubitus ulcer (Acute) ongoing concern DNR (do not resuscitate) (Acute) Hematuria (Acute) inactive Hypothermia (Acute) He is maintaining his temperature Hypothyroidism (Acute) The liothyronine is helping with core temperature MRSA nasal colonization (Acute) Malnutrition (Acute) I reviewed the dietitian consultation Medical orders for life-sustaining treatment (MOLST) form in chart (Acute) Sepsis (Acute) resolved Swallowing dysfunction (Acute) I reviewed the swallowing evaluation - safe with current thickened diet Thrombocytopenia (Acute) persistent Urinary tract infection (Acute) resolving Vitamin D deficiency (Acute) I will prescribe Vit D Anemia (Chronic) ongoing, chronic and persistent - recheck today Hyperlipidemia (Chronic) Late effects of acute poliomyelitis (Chronic) S/P cardiac pacemaker procedure (Chronic 03/14/14) Status post AAA (abdominal aortic aneurysm) repair (Chronic) I explained to the patient my new concerns and why we are delaying returning him to [facility]. Phone call to Elle - I explained the new situation with his tachypnea and wheezing. I informed her of the differenential diagnosis and how I feel he need to stay in the hospital until I have understood the cause of this and bought it under control or else he would go back to assisted living and be re-admitted. She agrees with the management plan.
[2017-03-22] MEDS ORDERED: Furosemide IV* 10 MG/ML VIAL (40 MG) IV ONE (09:00)
--- NOTE | 2017-03-22 10:00 | RAD ---
HISTORY: Tachypnea COMPARISONS: March 16, 2017 VIEWS: 1: frontal portable view of the chest at 9:40 AM FINDINGS: LINES AND TUBES: There is a right-sided pacemaker CARDIOMEDIASTINAL SILHOUETTE: The cardiac silhouette is enlarged. The cardiomediastinal silhouette is otherwise normal for portable technique. PLEURA: There is blunting of the costophrenic angles bilaterally. LUNG PARENCHYMA: There is a diffuse reticular pattern with indistinct pulmonary vessels. There is patchy alveolar opacification of the lung bases bilaterally ABDOMEN: The upper abdomen is clear. There is no subphrenic gas. BONES AND SOFT TISSUES: Degenerative changes are noted . IMPRESSION: 1. CARDIOMEGALY. 2. PULMONARY INTERSTITIAL EDEMA. 3. SMALL BILATERAL PLEURAL EFFUSIONS. 4. BIBASILAR ATELECTASIS VERSUS CONSOLIDATION
[2017-03-22 10:32] LABS: Hematocrit 31 % (42-52); Hemoglobin 10.4 g/dl (14.0-18.0); Mean Corpuscular HGB Conc 33 g/dl (31-36); Mean Corpuscular Hemoglobin 33 pg (27-31); Mean Corpuscular Volume 99 fL (80-94); Mean Platelet Volume 9 um3 (7.4-10.4); Red Blood Count 3.16 10^6/ul (4.0-5.4); Red Cell Distribution Width 17 % (10.5-15); White Blood Count 8.4 10^3/ul (3.5-10.8)
[2017-03-22 10:53] LABS: Troponin I 0.07 ng/mL (<0.04)
[2017-03-22 11:04] LABS: BUN/Creatinine Ratio 27.3 (8-20); Calcium 8.7 mg/dL (8.6-10.3); EGFR African American 91.5 (>60); EGFR Non-African American 71.2 (>60); Potassium 3.2 mmol/L (3.5-5.0)
--- NOTE | 2017-03-22 13:28 | PN ---
Progress Note - Progress Note Date of Service: 03/22/17 Note: Results of investigations for tachypnea: Laboratory Tests 03/22/17 03/22/17 03/22/17 10:18 10:18 10:18 WBC 8.4 Hgb 10.4 L Hct 31 L Plt Count 111 L Neut % (Auto) 83.7 H Sodium 148 H Potassium 3.2 L Chloride 108 Carbon Dioxide 34 H Anion Gap 6 BUN 27 H Creatinine 0.99 Glucose 111 H Troponin I 0.07 H* B-Natriuretic Peptide 2861 H Patient Name: JOCELYN NGUYEN Medical Record#: [id number] Ordering Physician: Ant Manzano MD Acct.#: [id number] : 1925 Age: 89 Sex: M Location: [address] [place] [address] MEDICAL Exam Date: 03/22/17838 ADM Status: ADM IN Order Information: CHEST AP PORTABLE Accession Number: [id number] CPT: 12542 HISTORY: Tachypnea COMPARISONS: March 16, 2017 VIEWS: 1: frontal portable view of the chest at 9:40 AM FINDINGS: LINES AND TUBES: There is a right-sided pacemaker CARDIOMEDIASTINAL SILHOUETTE: The cardiac silhouette is enlarged. The cardiomediastinal silhouette is otherwise normal for portable technique. PLEURA: There is blunting of the costophrenic angles bilaterally. LUNG PARENCHYMA: There is a diffuse reticular pattern with indistinct pulmonary vessels. There is patchy alveolar opacification of the lung bases bilaterally ABDOMEN: The upper abdomen is clear. There is no subphrenic gas. BONES AND SOFT TISSUES: Degenerative changes are noted . IMPRESSION: 1. CARDIOMEGALY. 2. PULMONARY INTERSTITIAL EDEMA. 3. SMALL BILATERAL PLEURAL EFFUSIONS. 4. BIBASILAR ATELECTASIS VERSUS CONSOLIDATION <Electronically signed by Cm Kinsey MD in OV> 03/22/17956 Dictated By: Cm Kinsey MD Dictated Date/Time: 03/22/17956 Transcribed Date/Time: 03/22/17955 Copy to: CC:Ant Manzano MD; Mina M Alli DO EKG: EKG INTERPRETATION ECG Report Atrial fibrillation. atrial activity Low voltage, extremity leads.all extremity leads <0.5mV Prolonged QT interval.QTc >500mS Rate controlled Assessment and plan: These results are most consistent with CHF. His most recent echocardiogram in Jul 2015 showed normal systolic function. I will recheck this. I suspect this is diastolic dysfunction. I will give him furosemide 40 mg iv bid. I will also consider beta tereza, JULISSA inhibitor. Atrial fibrillation - this is longstanding. We chose previously to stop warfarin on 07/28/15 when he presented with a PE and had on and off again atrial fibrillation as he had a GI bleed. I can re-address this with the family when I have more information concerning the echocardiogram. His platelets have improved since stopping the heparin - he had petechiae on admission. I think we have to be thoughtful with this patient who has a guarded prognosis. I will discuss the findings with the family once they are all assembled.
[2017-03-22] MEDS: Fondaparinux* 2.5 MG/0.5 ML SYRINGE SUBCUT SCH (13:48)
[2017-03-22 15:35] LABS: Zinc 0.6 mcg/mL (0.66-1.10)
--- NOTE | 2017-03-22 16:00 | ECHO ---
Patient: JOCELYN NGUYEN [facility] Rec#: [id number] : 1925 Date: 03/22/2017 Age: 89y Height: 182.88 cm / 72.0 in Weight: 90.72 kg / 199.9 lbs Sex: M BSA: 2.13 Room#: 422 Admit Date#: 03/14/2017 Type: Inpatient Referring: Ant Manzano MD Reading: Seth Min MD Glass Vial Bending Conveyor Feeder: Miranda CorriganRDCS,RDMS Transthoracic Echocardiogram Indication: CHF BP: 138/78 HR: 87 Rhythm: A-Fib Findings History: HTN, HLD, DVT/PE, CAD, PCI, AAA repair, ICD, colon cancer, chemotherapy Technical Comments: The study is technically difficult. The study is technically limited due to poor parasternal windows. Left Ventricle: The left ventricular chamber size is normal. Mild concentric left ventricular hypertrophy is observed. There is a focal wall motion abnormality present.The distal anterior, apical and distal inferior wall appear markedly hypokinetic. There is mild to moderately decreased left ventricular systolic function. The estimated ejection fraction is 35-40%. The assessment of diastolic function is non-diagnostic. Left Atrium: The left atrium is moderately dilated. Right Ventricle: The right ventricle is mildly dilated. The right ventricular global systolic function is mildly reduced. Right Atrium: The right atrium is moderate to severely dilated. A pacemaker wire is visualized in the right atrium. Aortic Valve: The aortic valve is trileaflet. The aortic valve leaflets are mildly thickened. There is aortic annular calcification. Mitral Valve: There is mitral annular calcification. The mitral valve leaflets are mildly thickened. Mitral valve leaflet mobility is mildly restricted. There is mild to moderate mitral regurgitation. There is mild mitral stenosis. The mitral valve area, by pressure half time, is calculated at 2.8 cm2. Tricuspid Valve: The tricuspid valve leaflets are normal. There is moderate tricuspid regurgitation. There is evidence of moderate pulmonary hypertension. Pulmonic Valve: The pulmonic valve structure is not well visualized. Pericardium: There is no significant pericardial effusion. Aorta: The aortic arch is not well visualized. There is mild dilatation of the aortic root. Pulmonary Artery: The main pulmonary artery is not well visualized. Venous: The inferior vena cava is dilated. There is less than 50% respiratory change in the inferior vena cava dimension. Conclusions The study is technically difficult. The study is technically limited due to poor parasternal windows. Mild concentric left ventricular hypertrophy is observed. There is mild to moderately decreased left ventricular systolic function. There is a focal wall motion abnormality present.The distal anterior, apical and distal inferior wall appear markedly hypokinetic. The estimated ejection fraction is 35-40%. There is mild to moderate mitral regurgitation. There is mild mitral stenosis. The left atrium is moderately dilated. The right ventricle is mildly dilated. The right ventricular global systolic function is mildly reduced. The right atrial cavity size is moderate to severely dilated. There is moderate tricuspid regurgitation. There is evidence of moderate pulmonary hypertension. Compared to report of study from 07/24/2015 the LV systolic function is worse with wall motion abnormalities noted(prior LVEF was reported as Greater Than 65% with NO wall motion abnormalities). The mitral regurgitation is worse (was trace) and the tricuspid regurgitation is worse (was mild). The mild mitral stenosis is new. Measurements Name Value Normal Range RVIDd (AP) 2D 3.6 cm (0.9 - 2.6) RVDdMajor (2D) 4.9 cm (2.2 - 4.4) RAd ISD 4CH 6.6 cm (3.4 - 4.9) RA (A4C)W 6 cm (2.9 - 4.6) IVSd (2D) 1.3 cm (0.6 - 1) LVPWd (2D) 1.3 cm (0.6 - 1) LVIDd (2D) 4.3 cm (3.6 - 5.4) LVIDs (2D) 3 cm - LV FS (2D) 29 % (25 - 45) Aortic Annulus 2.1 cm (1.4 - 2.6) Ao root diameter (2D) 4.2 cm (2.1 - 3.5) Ascending Ao 3.3 cm (2.1 - 3.4) LA dimension (AP) 2D 4.8 cm (2.3 - 3.8) LAd ISD 4CH 5.7 cm (2.9 - 5.3) LA ISD 4CH W 5.7 cm (2.5 - 4.5) Name Value Normal Range LA ESV SP 4CH (A/L) 89.31 ml - LA ESV SP 2CH (A/L) 155.6 ml - LA ESV BP (A/L) 131.06 ml - LA ESV BP (A/L) index 62 ml/m2 - LA ESV SP 4CH (MOD) 82.57 ml - LA ESV SP 2CH (MOD) 140.29 ml - Name Value Normal Range MV E-wave Vmax 1 m/sec - MV deceleration time 183 msec - LV lateral e' Vmax 0.12 m/sec - LV E:e' lateral ratio 8.3 ratio - Name Value Normal Range AV Vmax 0.9 m/sec - AV peak gradient 3.2 mmHg - LVOT Vmax 0.6 m/sec - LVOT peak gradient 1.4 mmHg - Name Value Normal Range MV Vmax 1.1 m/sec - MV VTI 21.4 cm - MV peak gradient 5 mmHg - MV mean gradient 2.1 mmHg - MV PHT 78 msec - MVA (PHT) 2.8 cm2 - Name Value Normal Range TR Vmax 2.8 m/sec - TR peak gradient 31 mmHg - RAP 15 mmHg - RVSP 46 mmHg - IVC diameter 2.7 cm -
[2017-03-22] MEDS: Furosemide IV* 10 MG/ML VIAL (40 MG) IV SLOW PU SCH (17:00)
[2017-03-23] MEDS: Levothyroxine TAB* 150 MCG TAB PO SCH (06:05)
[2017-03-23 07:02] LABS: Hematocrit 29 % (42-52); Hemoglobin 9.8 g/dl (14.0-18.0); Mean Corpuscular HGB Conc 33 g/dl (31-36); Mean Corpuscular Hemoglobin 33 pg (27-31); Mean Corpuscular Volume 98 fL (80-94); Mean Platelet Volume 9 um3 (7.4-10.4); Red Blood Count 2.97 10^6/ul (4.0-5.4); Red Cell Distribution Width 17 % (10.5-15); White Blood Count 12.6 10^3/ul (3.5-10.8)
--- NOTE | 2017-03-23 07:27 | PN ---
Subjective - Subjective Reason for Note: Progress Note History: He has received IV furosemide 40 mg twice daily for his CHF. He has not had strict I and O or daily weights. This morning he has no complaints and denies symptoms of CHF on direct questioning. Active Problems: Active Problems At risk of decubitus ulcer (Acute) Z91.89 Atrial fibrillation with controlled ventricular response (Acute) I48.91 DNR (do not resuscitate) (Acute) Dementia (Acute) F03.90 Hematuria (Acute) R31.9 Hypothyroidism (Acute) E03.9 MRSA nasal colonization (Acute) Z22.322 Malnutrition (Acute) E46 Medical orders for life-sustaining treatment (MOLST) form in chart (Acute) Z78.9 Swallowing dysfunction (Acute) Systolic and diastolic CHF, acute (Acute) I50.41 Tachypnea (Acute) R06.82 Thrombocytopenia (Acute) D69.6 Vitamin D deficiency (Acute) E55.9 Anemia (Chronic) D64.9 Hyperlipidemia (Chronic) E78.5 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 Flory Wang [employer] Status post AAA (abdominal aortic aneurysm) repair (Chronic) Z98.89, Z86.79 Current Medications: Current Medications Acetaminophen (Tylenol Tab*) 650 mg PO Q4H PRN PRN Reason: FEVER Albuterol/Ipratropium (Duoneb (Albuterol 2.5 Mg/Ipratropium 0.5 Mg)) 1 neb INH Q4H PRN PRN Reason: SOB/WHEEZING Amoxicillin/Clavulanate Potassium (Augmentin Oral Syringe*) 875 mg PO BID [facility] Last Admin: 03/22/17 20:09 Dose: 875 mg Docusate Sodium (Colace Cap*) 100 mg PO DAILY PRN PRN Reason: CONSTIPATION Last Admin: 03/19/17 21:00 Dose: 100 mg Fondaparinux (Arixtra*) 2.5 mg SUBCUT Q24H [facility] Last Admin: 03/22/17 13:48 Dose: 2.5 mg Furosemide (Lasix Iv*) 40 mg IV SLOW PU 0800,1700 [facility] Last Admin: 03/22/17 17:00 Dose: 40 mg Hydrocortisone (Cortef Tab*) 10 mg PO BEDTIME [facility] Last Admin: 03/22/17 20:09 Dose: 10 mg Hydrocortisone (Cortef Tab*) 20 mg PO DAILY [facility] Last Admin: 03/22/17 08:28 Dose: 20 mg Levothyroxine Sodium (Synthroid Tab*) 150 mcg PO DAILY@0600 [facility] Last Admin: 03/23/17 06:05 Dose: 150 mcg Liothyronine Sodium (Cytomel Tab*) 10 mcg PO Q12HR [facility] Last Admin: 03/22/17 20:09 Dose: 10 mcg Nystatin (Nystatin Top Powder*) 1 applic TOPICAL TID PRN PRN Reason: RASH Last Admin: 03/22/17 08:28 Dose: 1 applic Home Medications: Home Medications Medication Instructions Recorded Confirmed Type Ascorbic Acid TAB* [Vitamin C 500 mg PO DAILY 07/21/15 03/14/17 History TAB*] Ferrous Sulfate TAB* 325 mg PO DAILY 07/21/15 03/14/17 History Magnesium Oxide TAB* [MagOx 400 400 mg PO BID 07/21/15 03/14/17 History TAB*] Tamsulosin CAP* [Flomax CAP*] 0.4 mg PO DAILY 07/21/15 03/14/17 History Acetaminophen TAB* [Tylenol TAB*] 325 mg PO Q8HR PRN 03/14/17 03/14/17 History Acetaminophen TAB* [Tylenol TAB*] 650 mg PO Q6HR PRN 03/14/17 03/14/17 History Levothyroxine TAB* [Synthroid TAB*] 125 mcg PO DAILY 03/14/17 03/14/17 History Loperamide CAP* [Imodium CAP*] 2 mg PO Q6HR PRN 03/14/17 03/14/17 History Loperamide LIQ* [Imodium LIQ*] 5 ml PO Q12HR PRN 03/14/17 03/14/17 History Metoprolol Succinate XL TAB* 25 mg PO DAILY 03/14/17 03/14/17 History [Toprol XL TAB*] Moisturizing CREAM* [Hydrocerin 1 applic TOPICAL BID 03/14/17 03/14/17 History Cream*] Nystatin CREAM* 1 applic TOPICAL BID 03/14/17 03/14/17 History Omeprazole CAP* [Prilosec CAP* 20 40 mg PO BID 03/14/17 03/14/17 History MG] Psyllium ROLA* [Metamucil ROLA*] 1 pkt PO DAILY 03/14/17 03/14/17 History Sodium Fluoride (Dental) [Denta 1.1 % PO Q12HR 03/14/17 03/14/17 History 5000 Plus] Allergies: Allergies Allergy/AdvReac Type Severity Reaction Status Date / Time No Known Allergies Allergy Verified 05/08/16 07:35 Objective - Vital Signs Vital Signs: Vital Signs 03/22/17 03/22/17 03/22/17 08:08 11:07 16:47 Temperature 97.6 F 97.8 F Pulse Rate 65 68 Respiratory 23 20 20 Rate Blood Pressure 138/78 139/61 (mmHg) O2 Sat by Pulse 96 95 Oximetry 03/22/17 03/22/17 03/22/17 19:57 20:00 23:44 Temperature 97.4 F 97.2 F Pulse Rate 89 86 Respiratory 20 18 18 Rate Blood Pressure 124/66 120/70 (mmHg) O2 Sat by Pulse 98 96 Oximetry 03/23/17 03:38 Temperature 97.3 F Pulse Rate 86 Respiratory 18 Rate Blood Pressure 120/77 (mmHg) O2 Sat by Pulse 100 Oximetry - Intake and Output Intake and Output: Intake & Output 03/20/17 03/21/17 03/22/17 03/23/17 11:59 11:59 11:59 11:59 Intake Total 360 360 300 280 Output Total 1500 Balance -1140 360 300 280 Intake: Oral 360 360 300 280 Output: Maguire 1500 Other: Estimated Void Medium Medium Small Large # Bowel Movements 1 1 1 1 Estimated Stool Amount Medium Medium # Voids 2 1 1 1 ADLs: Meal Record Start: 03/14/17 14: 49 Freq: 09,13,18 Status: Complete Document 03/14/17 18:00 [id number] (Rec: 03/14/17 18:37 [id number] ICU-C25) Document 03/15/17 09:00 [id number] (Rec: 03/15/17 10:09 [id number] ICU-M10) Document 03/15/17 13:00 ZSP7500 (Rec: 03/15/17 13:58 [id number] ICU-C12) Document 03/15/17 18:00 OVD5563 (Rec: 03/15/17 18:04 [id number] ICU-M10) Document 03/16/17 09:00 [id number] (Rec: 03/16/17 09:12 [id number] ICU-C12) Document 03/16/17 09:11 INH5936 (Rec: 03/16/17 09:12 AKS5362 ICU-C11) ADLs: Meal Record Start: 03/16/17 16: 40 Freq: DAILY@0900,1400,1800 Status: Active Created 03/16/17 16:40 [id number] (Rec: 03/16/17 16:40 TGW8744 MED-C09) Document 03/16/17 16:42 OJU8047 (Rec: 03/16/17 16:43 [id number] MED-C09) Document 03/16/17 18:00 BMJ4769 (Rec: 03/16/17 22:58 WYZ4882 MED-C09) Document 03/17/17 09:00 BJH8442 (Rec: 03/17/17 11:30 SPS2884 MED-C11) Document 03/17/17 13:54 LVK1493 (Rec: 03/17/17 14:09 WLE0132 MED-C11) Document 03/17/17 18:00 KJQ5968 (Rec: 03/17/17 21:32 OCJ5748 MED-C09) Document 03/18/17 09:00 TMM9956 (Rec: 03/18/17 14:56 XYS9938 MED-C09) Document 03/18/17 14:00 TWR0522 (Rec: 03/18/17 14:58 IMV4476 MED-C09) Document 03/18/17 18:00 JMN7111 (Rec: 03/18/17 22:05 MHX2789 MED-C11) Document 03/19/17 09:00 AGH0991 (Rec: 03/19/17 11:46 USI5902 MED-C11) Document 03/19/17 14:00 SZT7153 (Rec: 03/19/17 15:16 RRQ0720 MED-C11) Document 03/19/17 18:00 COJ6200 (Rec: 03/19/17 18:42 NSH6734 MED-C11) Document 03/20/17 14:00 ZFJ1671 (Rec: 03/20/17 15:30 OXE9488 MED-C11) Document 03/20/17 18:00 CZO2705 (Rec: 03/20/17 22:39 NAI2593 MED-C11) Document 03/21/17 09:00 TOA3336 (Rec: 03/21/17 14:58 TXI8158 MED-C09) Document 03/21/17 14:00 JQS6862 (Rec: 03/21/17 15:00 MNB6005 MED-C09) Document 03/21/17 18:35 HEU2802 (Rec: 03/21/17 18:35 RUT3515 MED-C15) Document 03/22/17 09:00 PHI9631 (Rec: 03/22/17 11:40 HWC6063 MED-C11) Document 03/22/17 15:18 HCF2700 (Rec: 03/22/17 15:18 GVF6414 MED-C02) Document 03/22/17 18:00 EXW4617 (Rec: 03/22/17 18:12 CZE0084 MED-C09) Intake and Output Start: 03/14/17 14: 49 Freq: 06,14,22 Status: Complete Document 03/14/17 17:06 [id number] (Rec: 03/14/17 19:06 JKR7034 ICU-C25) Document 03/14/17 21:59 HDU1506 (Rec: 03/14/17 22:00 VWS9236 ICU-C06) Document 03/14/17 22:46 MFM6089 (Rec: 03/14/17 22:46 HYK5251 ICU-C25) Document 03/15/17 06:00 PRJ8235 (Rec: 03/15/17 06:44 RZU1485 ICU-C06) Document 03/15/17 14:00 UTL0785 (Rec: 03/15/17 14:40 NLQ1991 ICU-C12) Document 03/15/17 21:51 GNQ7188 (Rec: 03/15/17 21:53 [id number] ICU-M10) Document 03/16/17 06:15 YFD3787 (Rec: 03/16/17 06:15 WKT6201 ISDEMO-M05 ) Document 03/16/17 06:50 ARO1946 (Rec: 03/16/17 06:50 LLL5234 ICU-M10) Document 03/16/17 09:47 SKF2099 (Rec: 03/16/17 09:47 [id number] ICU-C11) Document 03/16/17 10:31 [id number] (Rec: 03/16/17 10:31 VMU5228 ICU-M10) - Physical Exam General: No Cyanosis, Yes Anemia, No Jaundice, No Clubbing Lungs and Chest: Yes: Chest Expansion Full, Chest Expansion Symetrica, Percussion Note Resonant, Vessicular Breath Sounds. No: Crackles, Wheezes Heart Rate and Rhythm: Irregular JVP: Elevated Additional Cardiovascular: Yes: Normal Heart Sounds. No: Heart Murmur, Pedal Edema Abdominal Exam: Yes: Soft, Bowel Sounds Present. No: Distention, Abdominal Mass , Abdominal Tenderness - Extremities Cranial Nerves II-XII Intact: Yes Limbs: Abnormal Power - generalized weakness Results - Results Lab Results: Laboratory Results - last 24 hr 03/21/17 03/22/17 03/22/17 09:14 10:18 10:18 WBC RBC Hgb Hct MCV MCH MCHC RDW Plt Count MPV Neut % (Auto) Lymph % (Auto) Zavala % (Auto) Eos % (Auto) Baso % (Auto) Absolute Neuts (auto) Absolute Lymphs (auto) Absolute Monos (auto) Absolute Eos (auto) Absolute Basos (auto) Absolute Nucleated RBC Nucleated RBC % Sodium 148 H Potassium 3.2 L Chloride 108 Carbon Dioxide 34 H Anion Gap 6 BUN 27 H Creatinine 0.99 Est GFR ( Amer) 91.5 Est GFR (Non-Af Amer) 71.2 BUN/Creatinine Ratio 27.3 H Glucose 111 H Calcium 8.7 Troponin I 0.07 H* B-Natriuretic Peptide 2861 H Procalcitonin Copper 1.67 H Zinc 0.60 L 03/22/17 03/22/17 03/23/17 10:18 10:18 06:49 WBC 8.4 12.6 H RBC 3.16 L 2.97 L Hgb 10.4 L 9.8 L Hct 31 L 29 L MCV 99 H 98 H MCH 33 H 33 H MCHC 33 33 RDW 17 H 17 H Plt Count 111 L 102 L MPV 9 9 Neut % (Auto) 83.7 H 89.5 H Lymph % (Auto) 6.4 L 3.7 L Zavala % (Auto) 6.4 6.1 Eos % (Auto) 3.2 0.5 Baso % (Auto) 0.3 0.2 Absolute Neuts (auto) 7.1 11.3 H Absolute Lymphs (auto) 0.5 L 0.5 L Absolute Monos (auto) 0.5 0.8 Absolute Eos (auto) 0.3 0.1 Absolute Basos (auto) 0 0 Absolute Nucleated RBC 0.02 0.01 Nucleated RBC % 0.3 0.1 Sodium Potassium Chloride Carbon Dioxide Anion Gap BUN Creatinine Est GFR ( Amer) Est GFR (Non-Af Amer) BUN/Creatinine Ratio Glucose Calcium Troponin I B-Natriuretic Peptide Procalcitonin < 0.1 Copper Zinc Radiology Results: Patient Name: JOCELYN NGUYEN Medical Record#: [id number] Ordering Physician: Ant Manzano MD Acct.#: [id number] : 1925 Age: 89 Sex: M Location: [address] [place] [address] MEDICAL Exam Date: 03/22/17838 ADM Status: ADM IN Order Information: CHEST AP PORTABLE Accession Number: [id number] CPT: 99295 HISTORY: Tachypnea COMPARISONS: March 16, 2017 VIEWS: 1: frontal portable view of the chest at 9:40 AM FINDINGS: LINES AND TUBES: There is a right-sided pacemaker CARDIOMEDIASTINAL SILHOUETTE: The cardiac silhouette is enlarged. The cardiomediastinal silhouette is otherwise normal for portable technique. PLEURA: There is blunting of the costophrenic angles bilaterally. LUNG PARENCHYMA: There is a diffuse reticular pattern with indistinct pulmonary vessels. There is patchy alveolar opacification of the lung bases bilaterally ABDOMEN: The upper abdomen is clear. There is no subphrenic gas. BONES AND SOFT TISSUES: Degenerative changes are noted . IMPRESSION: 1. CARDIOMEGALY. 2. PULMONARY INTERSTITIAL EDEMA. 3. SMALL BILATERAL PLEURAL EFFUSIONS. 4. BIBASILAR ATELECTASIS VERSUS CONSOLIDATION <Electronically signed by Cm Kinsey MD in OV> 03/22/17 0957 Dictated By: Cm Kinsey MD Dictated Date/Time: 03/22/1757 Transcribed Date/Time: 03/22/1756 Copy to: CC:Ant Manzano MD; Mina Carson DO Imaging - [facility] Imaging - [facility] Imaging - [facility] [address] [place], [place] [id number] [place] [id number] [place] [id number] ph ([phone]) ph ([phone]) ph ([phone]) 1 of 1 EKG Report: EKG 03/22/17 Atrial fibrillation 96 QTC 645 QRS axis 45, diffuse non-specific st/T changes. Other Results/Reports: Conclusions The study is technically difficult. The study is technically limited due to poor parasternal windows. Mild concentric left ventricular hypertrophy is observed. There is mild to moderately decreased left ventricular systolic function. There is a focal wall motion abnormality present.The distal anterior, apical and distal inferior wall appear markedly hypokinetic. The estimated ejection fraction is 35-40%. There is mild to moderate mitral regurgitation. There is mild mitral stenosis. The left atrium is moderately dilated. The right ventricle is mildly dilated. The right ventricular global systolic function is mildly reduced. The right atrial cavity size is moderate to severely dilated. Assessment - Problem List Assessment: Patient Problems At risk of decubitus ulcer (Acute) Atrial fibrillation with controlled ventricular response (Acute) DNR (do not resuscitate) (Acute) Dementia (Acute) Hematuria (Acute) Hypothyroidism (Acute) MRSA nasal colonization (Acute) Malnutrition (Acute) Medical orders for life-sustaining treatment (MOLST) form in chart (Acute) Swallowing dysfunction (Acute) Systolic and diastolic CHF, acute (Acute) Tachypnea (Acute) Thrombocytopenia (Acute) Vitamin D deficiency (Acute) Anemia (Chronic) Hyperlipidemia (Chronic) Late effects of acute poliomyelitis (Chronic) S/P cardiac pacemaker procedure (Chronic 03/14/14) Status post AAA (abdominal aortic aneurysm) repair (Chronic) Plan: S/P cardiac pacemaker procedure (Chronic 03/14/14), Systolic and diastolic CHF, acute (Acute) Tachypnea (Acute) He developed acute CHF. He has evidence of new systolic failure and likely also has a component of diastolic failure. His troponin I is not suggestive of an acute event - likely secondary to CHF. I will start beta blockade and an JULISSA inhibitor. I will maintain furosemide to bring this under control. I will replace his potassium Atrial fibrillation with controlled ventricular response (Acute) He has had intermittent atrial fibrillation. I have in the past discussed this with the family and the patient in the past. He had a prior GI hemorrhage and a decision was made not to anticoagulate him. In fact, he has a history of pulmonary embolism. I will approach this subject again Hypothyroidism (Acute) continue current Rx Malnutrition (Acute) ongoing Swallowing dysfunction (Acute) ongoing At risk of decubitus ulcer (Acute) ongoing Thrombocytopenia (Acute) ongoing Vitamin D deficiency (Acute) for Vit D supplementation Anemia (Chronic) ongoing Hyperlipidemia (Chronic) secondary diagnosis Late effects of acute poliomyelitis (Chronic) Dementia: This is longstanding, but there appears to be a stepwise decline recently, perhaps related to a CVA due to a watershed perfusion problem during his sepsis. Status post AAA (abdominal aortic aneurysm) repair (Chronic) DNR (do not resuscitate) (Acute) Medical orders for life-sustaining treatment (MOLST) form in chart (Acute) MRSA nasal colonization (Acute) My impression is he is showing failure to thrive. He has multiple medical problems and each one presents difficulties in management. I will discuss with the family these complexities and find out how they advocate his further management. I will discuss hospicecare/palliative care. I discussed 3 options with Elle (daughter) - acute medical care, conservative medical care, hospicecare. She would prefer the hospicecare approach - though, she wants to explore this with them. She feels he would prefer this and would like to get him back to [facility]. In the meantime I will follow a conservative route.
[2017-03-23 07:30] LABS: BUN/Creatinine Ratio 26.1 (8-20); C Reactive Protein 77.8 mg/L (< 5.00); Calcium 8.2 mg/dL (8.6-10.3); EGFR African American 99.6 (>60); EGFR Non-African American 77.5 (>60); Potassium 2.9 mmol/L (3.5-5.0)
[2017-03-23] MEDS ORDERED: KCL 20 MEQ/100 ML IVPREMIX* 20 MEQ/100 ML BAG IV ONE (07:52)
[2017-03-23] MEDS: Furosemide IV* 10 MG/ML VIAL (40 MG) IV SLOW PU SCH (09:06)
[2017-03-23] MEDS: Amoxicillin/Clavulanate O.SYR* 400 MG/5 ML ORAL.SYRIN PO SCH ×2 (09:43→22:28)
[2017-03-23] MEDS: Hydrocortisone TAB* 10 MG PO SCH ×2 (09:44→22:30)
[2017-03-23] MEDS: Carvedilol TAB* 6.25 MG PO SCH ×2 (09:44→22:30)
[2017-03-23] MEDS: Potassium Chloride LIQUID* 20 MEQ PACKET PO SCH ×2 (09:45→22:30)
[2017-03-23] MEDS: Liothyronine TAB* 5 MCG PO SCH ×2 (09:45→22:27)
[2017-03-23] MEDS: Ramipril CAP* 2.5 MG PO SCH (09:45)
--- NOTE | 2017-03-23 13:48 | CONSULT ---
Palliative / Hospice Consult Ordering Provider: Ant Manzano - Subjective Code Status: DNR Advance Directives Location: In Chart [facility] Part A Completed: Yes - DNR [facility] Part E Completed:: Yes - DNI HCP Completed: Yes - daughter Elle - History or Present Illness History or Present Illness: This 89 year old man has had progressive dementia and has not ambulated since he underwent AAA repair 2 years ago. He is now admitted 9 days ago with hypotension and lethargy and temp. about 90 degrees, found to have sepsis, likely urosepsis, and was maintained in the ICU initially. 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 DUring this hospitalization he has had an ECHO and been treated for CHF. CXR shows persistent bibasilar consolidation as well as upper lobe revascularization and small pleural effusions which may reflect pneumonitis as well as CHF. He had a swallow evaluation that showed severe oropharyngeal dysphagia to all liquids, and he was only able to manage effective swallowing of pureed and ground solids. He remains encephalopathic with difficulty focusing, attention is diminished, and he is unable to answer anything more than very simple questions. Lab Values: Abnormal Lab Results 03/21/17 03/22/17 03/23/17 09:14 10:18 06:49 WBC 12.6 H RBC 2.97 L Hgb 9.8 L Hct 29 L MCV 98 H MCH 33 H MCHC 33 RDW 17 H Plt Count 102 L MPV 9 Neut % (Auto) 89.5 H Lymph % (Auto) 3.7 L [place] % (Auto) 6.1 Eos % (Auto) 0.5 Baso % (Auto) 0.2 Absolute Neuts (auto) 11.3 H Absolute Lymphs (auto) 0.5 L Absolute Monos (auto) 0.8 Absolute Eos (auto) 0.1 Absolute Basos (auto) 0 Absolute Nucleated RBC 0.01 Nucleated RBC % 0.1 Sodium Potassium Chloride Carbon Dioxide Anion Gap BUN Creatinine Est GFR ( Amer) Est GFR (Non-Af Amer) BUN/Creatinine Ratio Glucose Calcium C-Reactive Protein Procalcitonin < 0.1 Copper 1.67 H Zinc 0.60 L 03/23/17 06:49 WBC RBC Hgb Hct MCV MCH MCHC RDW Plt Count MPV Neut % (Auto) Lymph % (Auto) [place] % (Auto) Eos % (Auto) Baso % (Auto) Absolute Neuts (auto) Absolute Lymphs (auto) Absolute Monos (auto) Absolute Eos (auto) Absolute Basos (auto) Absolute Nucleated RBC Nucleated RBC % Sodium 148 H Potassium 2.9 L Chloride 104 Carbon Dioxide 39 H Anion Gap 5 BUN 24 Creatinine 0.92 Est GFR ( Amer) 99.6 Est GFR (Non-Af Amer) 77.5 BUN/Creatinine Ratio 26.1 H Glucose 104 H Calcium 8.2 L C-Reactive Protein 77.80 H Procalcitonin Copper Zinc Laboratory Last Values WBC 12.6 10^3/ul (3.5-10.8) H 03/23/17 06:49 RBC 2.97 10^6/ul (4.0-5.4) L 03/23/17 06:49 RBC (Retic) 2.87 10^6/ul (4.6-6.2) L 03/20/17 12:01 Hgb 9.8 g/dl (14.0-18.0) L 03/23/17 06:49 Hct 29 % (42-52) L 03/23/17 06:49 HCT (Retic) 29 % (42-52) L 03/20/17 12:01 MCV 98 fL (80-94) H 03/23/17 06:49 MCH 33 pg (27-31) H 03/23/17 06:49 MCHC 33 g/dl (31-36) 03/23/17 06:49 RDW 17 % (10.5-15) H 03/23/17 06:49 Plt Count 102 10^3/ul (150-450) L 03/23/17 06:49 MPV 9 um3 (7.4-10.4) 03/23/17 06:49 Neut % (Auto) 89.5 % (38-83) H 03/23/17 06:49 Lymph % (Auto) 3.7 % (25-47) L 03/23/17 06:49 Harford % (Auto) 6.1 % (1-9) 03/23/17 06:49 Eos % (Auto) 0.5 % (0-6) 03/23/17 06:49 Baso % (Auto) 0.2 % (0-2) 03/23/17 06:49 Absolute Neuts (auto) 11.3 10^3/ul (1.5-7.7) H 03/23/17 06:49 Absolute Lymphs (auto) 0.5 10^3/ul (1.0-4.8) L 03/23/17 06:49 Absolute Monos (auto) 0.8 10^3/ul (0-0.8) 03/23/17 06:49 Absolute Eos (auto) 0.1 10^3/ul (0-0.6) 03/23/17 06:49 Absolute Basos (auto) 0 10^3/ul (0-0.2) 03/23/17 06:49 Absolute Nucleated RBC 0.01 10^3/ul 03/23/17 06:49 Nucleated RBC % 0.1 03/23/17 06:49 Normal RBC Morphology Not Reportable 03/17/17 05:37 Polychromasia 1+ 03/17/17 05:37 Basophilic Stippling 1+ 03/17/17 05:37 Macrocytosis 1+ 03/17/17 05:37 Elliptocytes 1+ 03/17/17 05:37 Retic Count, Calc 2.0 % (0.5-1.5) H 03/20/17 12:01 Corrected Retic Count 1.3 % (0.5-1.5) 03/20/17 12:01 Retic Shift Factor 2.0 03/20/17 12:01 Retic Production Index 0.70 03/20/17 12:01 Immature Retic Fraction 0.64 03/20/17 12:01 Mean Retic Volume 151.7 03/20/17 12:01 INR (Anticoag Therapy) 1.12 (0.89-1.11) H 03/14/17 13:00 APTT 39.1 seconds (26.0-36.3) H 03/14/17 13:00 Sodium 148 mmol/L (133-145) H 03/23/17 06:49 Potassium 2.9 mmol/L (3.5-5.0) L 03/23/17 06:49 Chloride 104 mmol/L (101-111) 03/23/17 06:49 Carbon Dioxide 39 mmol/L (22-32) H 03/23/17 06:49 Anion Gap 5 mmol/L (2-11) 03/23/17 06:49 BUN 24 mg/dL (6-24) 03/23/17 06:49 Creatinine 0.92 mg/dL (0.67-1.17) 03/23/17 06:49 Est GFR ( Amer) 99.6 (>60) 03/23/17 06:49 Est GFR (Non-Af Amer) 77.5 (>60) 03/23/17 06:49 BUN/Creatinine Ratio 26.1 (8-20) H 03/23/17 06:49 Glucose 104 mg/dL (70-100) H 03/23/17 06:49 Lactic Acid 1.1 mmol/L (0.5-2.0) 03/14/17 17:50 Calcium 8.2 mg/dL (8.6-10.3) L 03/23/17 06:49 Phosphorus 4.9 mg/dL (2.5-5.0) 03/15/17 05:10 Magnesium 2.5 mg/dL (1.9-2.7) 03/15/17 05:10 Iron 79 ug/dL (50-212) 03/21/17 09:14 TIBC 273 mcg/dL (250-450) 03/21/17 09:14 % Saturation 29 % (15-55) 03/21/17 09:14 Unsat Iron Binding 194 ug/dL 03/21/17 09:14 Ferritin 356.0 ng/mL (24-336) H 03/21/17 09:14 Total Bilirubin 0.60 mg/dL (0.2-1.0) 03/20/17 12:01 Direct Bilirubin 0.20 mg/dL (0.03-0.18) H 03/16/17 05:30 Indirect Bilirubin 0.3 mg/dL (0.3-1.0) 03/16/17 05:30 AST 29 U/L (13-39) 03/20/17 12:01 ALT 17 U/L (7-52) 03/20/17 12:01 Alkaline Phosphatase 82 U/L (34-104) 03/20/17 12:01 Troponin I 0.07 ng/mL (<0.04) H* 03/22/17 10:18 C-Reactive Protein 77.80 mg/L (< 5.00) H 03/23/17 06:49 B-Natriuretic Peptide 2861 pg/mL (-100) H 03/22/17 10:18 Total Protein 6.1 g/dL (6.4-8.9) L 03/20/17 12:01 Albumin 3.0 g/dL (3.2-5.2) L 03/20/17 12:01 Globulin 3.1 g/dL (2-4) 03/20/17 12:01 Albumin/Globulin Ratio 1.0 (1-3) 03/20/17 12:01 Prealbumin 11 mg/dL (18-38) L 03/20/17 12:01 Vitamin B12 1326 pg/mL (180-914) H 03/18/17 07:10 25-OH Vitamin D Total < 7.0 ng/mL (20-50) L 03/20/17 12:01 Folate 10.96 ng/mL (>3.99) 03/18/17 07:10 Procalcitonin < 0.1 ng/mL (<0.6) 03/22/17 10:18 TSH 1.35 mcIU/mL (0.34-5.60) 03/18/17 07:10 Free T4 1.15 ng/dL (0.61-1.12) H 03/18/17 07:10 Free T3 3.30 pg/mL (2.5-3.9) 03/21/17 09:14 Total T3 0.81 ng/mL (0.87-1.78) L 03/21/17 09:14 Cortisol 18.37 mcg/dL 03/14/17 13:00 Urine Color Irma 03/14/17 13:05 Urine Appearance Turbid 03/14/17 13:05 Urine pH 5.0 (5-9) 03/14/17 13:05 Ur Specific Lanse 1.021 (1.010-1.030) 03/14/17 13:05 Urine Protein 2+(100 mg/dl) (Negative) H 03/14/17 13:05 Urine Ketones Trace (Negative) H 03/14/17 13:05 Urine Blood 3+ (Negative) H 03/14/17 13:05 Urine Nitrate Negative (Negative) 03/14/17 13:05 Urine Bilirubin Negative (Negative) 03/14/17 13:05 Urine Urobilinogen Negative (Negative) 03/14/17 13:05 Ur Leukocyte Esterase 3+ (Negative) H 03/14/17 13:05 Urine WBC (Auto) 3+(>20/hpf) (Absent) H 03/14/17 13:05 Urine RBC (Auto) 3+(>10/hpf) (Absent) H 03/14/17 13:05 Ur Transition Epith Cell Present (Absent) H 03/14/17 13:05 Urine Bacteria 1+ (Absent) H 03/14/17 13:05 Ur Random Creatinine 129.68 mg/dL 03/15/17 10:25 Ur Random Sodium 24 mmol/L 03/15/17 10:25 Renal Sodium Excretion 0.22 % 03/15/17 10:25 Urine Glucose Negative (Negative) 03/14/17 13:05 Urine Ascorbic Acid * (Negative) H 03/14/17 13:05 Random Vancomycin 13.5 mcg/mL 03/16/17 05:30 Copper 1.67 mcg/mL (0.75-1.45) H 03/21/17 09:14 Zinc 0.60 mcg/mL (0.66-1.10) L 03/21/17 09:14 - Objective Active Medications: Acetaminophen (Tylenol Tab*) 650 mg PO Q4H PRN PRN Reason: FEVER Albuterol/Ipratropium (Duoneb (Albuterol 2.5 Mg/Ipratropium 0.5 Mg)) 1 neb INH Q4H PRN PRN Reason: SOB/WHEEZING Amoxicillin/Clavulanate Potassium (Augmentin Oral Syringe*) 875 mg PO BID [facility] Last Admin: 03/23/17 09:43 Dose: 875 mg Carvedilol (Coreg Tab*) 6.25 mg PO BID [facility] Last Admin: 03/23/17 09:44 Dose: 6.25 mg Docusate Sodium (Colace Cap*) 100 mg PO DAILY PRN PRN Reason: CONSTIPATION Last Admin: 03/19/17 21:00 Dose: 100 mg Fondaparinux (Arixtra*) 2.5 mg SUBCUT Q24H [facility] Last Admin: 03/22/17 13:48 Dose: 2.5 mg Furosemide (Lasix Iv*) 40 mg IV SLOW PU 0800,1700 [facility] Last Admin: 03/23/17 09:06 Dose: 40 mg Hydrocortisone (Cortef Tab*) 10 mg PO BEDTIME [facility] Last Admin: 03/22/17 20:09 Dose: 10 mg Hydrocortisone (Cortef Tab*) 20 mg PO DAILY [facility] Last Admin: 03/23/17 09:44 Dose: 20 mg Levothyroxine Sodium (Synthroid Tab*) 150 mcg PO DAILY@0600 [facility] Last Admin: 03/23/17 06:05 Dose: 150 mcg Liothyronine Sodium (Cytomel Tab*) 10 mcg PO Q12HR [facility] Last Admin: 03/23/17 09:45 Dose: 10 mcg Nystatin (Nystatin Top Powder*) 1 applic TOPICAL TID PRN PRN Reason: RASH Last Admin: 03/22/17 08:28 Dose: 1 applic Potassium Chloride (Klor-Con Liquid*) 20 meq PO BID [facility] Last Admin: 03/23/17 09:45 Dose: 20 meq Ramipril (Altace Cap*) 2.5 mg PO DAILY [facility] Last Admin: 03/23/17 09:45 Dose: 2.5 mg Vital Signs: Vital Signs: Temp Pulse Resp BP Pulse Ox 98 F 86 18 119/63 96 03/23/17 11:20 03/23/17 11:20 03/23/17 11:20 03/23/17 08:43 03/23/17 11:20 Patient Weight: Weight 202 lb 13.204 oz Intake and Output: Intake & Output 03/21/17 03/22/17 03/23/17 03/24/17 06:59 06:59 06:59 06:59 Intake Total 240 420 280 Balance 240 420 280 Intake: Oral 240 420 280 Other: Estimated Void Medium Small Large # Bowel Movements 1 1 1 Estimated Stool Amount Medium Medium # Voids 1 1 1 ADLs: Meal Record Start: 03/14/17 14: 49 Freq: ,,18 Status: Complete Document 03/14/17 18:00 [id number] (Rec: 03/14/17 18:37 [id number] ICU-C25) Document 03/15/17 09:00 [id number] (Rec: 03/15/17 10:09 [id number] ICU-M10) Document 03/15/17 13:00 [id number] (Rec: 03/15/17 13:58 [id number] ICU-C12) Document 03/15/17 18:00 [id number] (Rec: 03/15/17 18:04 [id number] ICU-M10) Document 03/16/17 09:00 [id number] (Rec: 03/16/17 09:12 [id number] ICU-C12) Document 03/16/17 09:11 [id number] (Rec: 03/16/17 09:12 [id number] ICU-C11) ADLs: Meal Record Start: 03/16/17 16: 40 Freq: DAILY@0900,1400,1800 Status: Active Created 03/16/17 16:40 [id number] (Rec: 03/16/17 16:40 [id number] MED-C09) Document 03/16/17 16:42 [id number] (Rec: 03/16/17 16:43 [id number] MED-C09) Document 03/16/17 18:00 [id number] (Rec: 03/16/17 22:58 [id number] MED-C09) Document 03/17/17 09:00 CZL0026 (Rec: 03/17/17 11:30 [id number] MED-C11) Document 03/17/17 13:54 [id number] (Rec: 03/17/17 14:09 [id number] MED-C11) Document 03/17/17 18:00 [id number] (Rec: 03/17/17 21:32 [id number] MED-C09) Document 03/18/17 09:00 [id number] (Rec: 03/18/17 14:56 SJI4052 MED-C09) Document 03/18/17 14:00 HRZ0040 (Rec: 03/18/17 14:58 [id number] MED-C09) Document 03/18/17 18:00 JUR5011 (Rec: 03/18/17 22:05 EGL1660 MED-C11) Document 03/19/17 09:00 IPA3632 (Rec: 03/19/17 11:46 [id number] MED-C11) Document 03/19/17 14:00 VWJ5817 (Rec: 03/19/17 15:16 [id number] MED-C11) Document 03/19/17 18:00 YGB4025 (Rec: 03/19/17 18:42 [id number] MED-C11) Document 03/20/17 14:00 [id number] (Rec: 03/20/17 15:30 [id number] MED-C11) Document 03/20/17 18:00 [id number] (Rec: 03/20/17 22:39 EBC0782 MED-C11) Document 03/21/17 09:00 ENI1471 (Rec: 03/21/17 14:58 FDS3525 MED-C09) Document 03/21/17 14:00 [id number] (Rec: 03/21/17 15:00 RMW1326 MED-C09) Document 03/21/17 18:35 DQO4573 (Rec: 03/21/17 18:35 [id number] MED-C15) Document 03/22/17 09:00 RWD5117 (Rec: 03/22/17 11:40 [id number] MED-C11) Document 03/22/17 15:18 OFV3576 (Rec: 03/22/17 15:18 JAS2726 MED-C02) Document 03/22/17 18:00 [id number] (Rec: 03/22/17 18:12 GWZ1243 MED-C09) Document 03/23/17 09:00 VXR3250 (Rec: 03/23/17 11:30 [id number] MED-C11) Intake and Output Start: 03/14/17 14: 49 Freq: 06,14,22 Status: Complete Document 03/14/17 17:06 [id number] (Rec: 03/14/17 19:06 [id number] ICU-C25) Document 03/14/17 21:59 [id number] (Rec: 03/14/17 22:00 GQM0476 ICU-C06) Document 03/14/17 22:46 VFD8420 (Rec: 03/14/17 22:46 OVS6802 ICU-C25) Document 03/15/17 06:00 TCR5261 (Rec: 03/15/17 06:44 SHD2572 ICU-C06) Document 03/15/17 14:00 NCY7386 (Rec: 03/15/17 14:40 EEO7214 ICU-C12) Document 03/15/17 21:51 [id number] (Rec: 03/15/17 21:53 [id number] ICU-M10) Document 03/16/17 06:15 [id number] (Rec: 03/16/17 06:15 [id number] [facility] ) Document 03/16/17 06:50 [id number] (Rec: 03/16/17 06:50 [id number] ICU-M10) Document 03/16/17 09:47 [id number] (Rec: 03/16/17 09:47 IEQ6193 ICU-C11) Document 03/16/17 10:31 SUQ7140 (Rec: 03/16/17 10:31 EKX0210 ICU-M10) General Impression: Elderly patient with vacant stare and paucity of words. Head: Symmetrical Eyes: No Scleral Icterus Neck: Trachea Midline Cardiovascular: - - irregularly irregular Respiratory: Symmetrical Chest Expansion and Respiratory Effort - bibasilar crepitant rales Abdominal: NL Sounds; No Tenderness; No Distention Extremities: No Edema - Assessment Assessment: 89 year old man with progressive dementia, recent exacerbation by urosepsis, now with severe oropharyngeal dysphagia and at risk for further aspiration and recurrent sepsis. I spoke at length with his daughter Elle, and she opts for keeping her father from further hospitalizations at [facility] on hospice services. He is eligible for hospice services with a primary diagnosis of dysphagia and a secondary of aspiration. Dr. Manzano has agreed to discharge home tomorrow with same day hospice sign on. Thank you for requesting this consultation. - Plan Consult Plan (MU): Hospice - Time On Unit Date of Evaluation: 03/23/17 Hospice Consult Time in: 12:45 Hospice Consult Time Out: 14:00 Hospice Consult Time Total: 75 > 50% of Time Spend In Counseling or Coordinating Care: Yes
[2017-03-23] MEDS: Fondaparinux* 2.5 MG/0.5 ML SYRINGE SUBCUT SCH (13:56)
[2017-03-23] MEDS ORDERED: Morphine ORAL CONCENTRATE* 5 MG/0.25 ML ORAL.SYRIN PO PRN (16:18)
[2017-03-23] MEDS ORDERED: Furosemide TAB* 40 MG PO ONE (17:00)
[2017-03-23] MEDS: Nystatin TOP POWDER* 15 GM BTL TOPICAL PRN (22:27)
[2017-03-23] MEDS: Docusate CAP* 100 MG PO PRN (22:31)
[2017-03-24] MEDS: Levothyroxine TAB* 150 MCG TAB PO SCH (05:33)
[2017-03-24 07:42] VITALS: BP 117/59
--- NOTE | 2017-03-24 07:55 | PN ---
Subjective - Subjective Reason for Note: Discharge Note History: Discharge summary I reviewed Dr. Salcedo's note. He is to go back to [facility] today with [facility]. He is alert and conversational, and describes no pain or distress. He denies dyspnea, chest pain, cough. Active Problems: Active Problems At risk of decubitus ulcer (Acute) Z91.89 Atrial fibrillation with controlled ventricular response (Acute) I48.91 DNR (do not resuscitate) (Acute) Dementia (Acute) F03.90 Hematuria (Acute) R31.9 Hypothyroidism (Acute) E03.9 MRSA nasal colonization (Acute) Z22.322 Malnutrition (Acute) E46 Medical orders for life-sustaining treatment (MOLST) form in chart (Acute) Z78.9 Swallowing dysfunction (Acute) Systolic and diastolic CHF, acute (Acute) I50.41 Tachypnea (Acute) R06.82 Thrombocytopenia (Acute) D69.6 Vitamin D deficiency (Acute) E55.9 Anemia (Chronic) D64.9 Hyperlipidemia (Chronic) E78.5 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 Flory Wang [employer] Status post AAA (abdominal aortic aneurysm) repair (Chronic) Z98.89, Z86.79 Current Medications: Current Medications Acetaminophen (Tylenol Tab*) 650 mg PO Q4H PRN PRN Reason: FEVER Albuterol/Ipratropium (Duoneb (Albuterol 2.5 Mg/Ipratropium 0.5 Mg)) 1 neb INH Q4H PRN PRN Reason: SOB/WHEEZING Amoxicillin/Clavulanate Potassium (Augmentin Oral Syringe*) 875 mg PO BID [facility] Last Admin: 03/23/17 22:28 Dose: 875 mg Carvedilol (Coreg Tab*) 6.25 mg PO BID [facility] Last Admin: 03/23/17 22:30 Dose: 6.25 mg Docusate Sodium (Colace Cap*) 100 mg PO DAILY PRN PRN Reason: CONSTIPATION Last Admin: 03/23/17 22:31 Dose: 100 mg Fondaparinux (Arixtra*) 2.5 mg SUBCUT Q24H [facility] Last Admin: 03/23/17 13:56 Dose: Not Given Hydrocortisone (Cortef Tab*) 10 mg PO BEDTIME [facility] Last Admin: 03/23/17 22:30 Dose: 10 mg Hydrocortisone (Cortef Tab*) 20 mg PO DAILY [facility] Last Admin: 03/23/17 09:44 Dose: 20 mg Levothyroxine Sodium (Synthroid Tab*) 150 mcg PO DAILY@0600 [facility] Last Admin: 03/24/17 05:33 Dose: 150 mcg Liothyronine Sodium (Cytomel Tab*) 10 mcg PO Q12HR [facility] Last Admin: 03/23/17 22:27 Dose: 10 mcg Morphine Sulfate (Morphine Oral Concentrate*) 5 mg PO Q2H PRN PRN Reason: SHORTNESS OF BREATH Nystatin (Nystatin Top Powder*) 1 applic TOPICAL TID PRN PRN Reason: RASH Last Admin: 03/23/17 22:27 Dose: 1 applic Potassium Chloride (Klor-Con Liquid*) 20 meq PO BID [facility] Last Admin: 03/23/17 22:30 Dose: 20 meq Ramipril (Altace Cap*) 2.5 mg PO DAILY [facility] Last Admin: 03/23/17 09:45 Dose: 2.5 mg Home Medications: Home Medications Medication Instructions Recorded Confirmed Type Ascorbic Acid TAB* [Vitamin C 500 mg PO DAILY 07/21/15 03/14/17 History TAB*] Ferrous Sulfate TAB* 325 mg PO DAILY 07/21/15 03/14/17 History Magnesium Oxide TAB* [MagOx 400 400 mg PO BID 07/21/15 03/14/17 History TAB*] Tamsulosin CAP* [Flomax CAP*] 0.4 mg PO DAILY 07/21/15 03/14/17 History Acetaminophen TAB* [Tylenol TAB*] 325 mg PO Q8HR PRN 03/14/17 03/14/17 History Acetaminophen TAB* [Tylenol TAB*] 650 mg PO Q6HR PRN 03/14/17 03/14/17 History Levothyroxine TAB* [Synthroid TAB*] 125 mcg PO DAILY 03/14/17 03/14/17 History Loperamide CAP* [Imodium CAP*] 2 mg PO Q6HR PRN 03/14/17 03/14/17 History Loperamide LIQ* [Imodium LIQ*] 5 ml PO Q12HR PRN 03/14/17 03/14/17 History Metoprolol Succinate XL TAB* 25 mg PO DAILY 03/14/17 03/14/17 History [Toprol XL TAB*] Moisturizing CREAM* [Hydrocerin 1 applic TOPICAL BID 03/14/17 03/14/17 History Cream*] Nystatin CREAM* 1 applic TOPICAL BID 03/14/17 03/14/17 History Omeprazole CAP* [Prilosec CAP* 20 40 mg PO BID 03/14/17 03/14/17 History MG] Psyllium ROLA* [Metamucil ROLA*] 1 pkt PO DAILY 03/14/17 03/14/17 History Sodium Fluoride (Dental) [Denta 1.1 % PO Q12HR 03/14/17 03/14/17 History 5000 Plus] Allergies: Allergies Allergy/AdvReac Type Severity Reaction Status Date / Time No Known Allergies Allergy Verified 05/08/16 07:35 Objective - Vital Signs Vital Signs: Vital Signs 03/23/17 03/23/17 03/23/17 08:00 08:30 08:43 Temperature 97.4 F Pulse Rate 87 94 Respiratory 24 20 18 Rate Blood Pressure 119/63 (mmHg) O2 Sat by Pulse 100 100 Oximetry 03/23/17 03/23/17 03/23/17 11:20 14:05 20:00 Temperature 98 F 97.9 F Pulse Rate 86 81 Respiratory 18 26 16 Rate Blood Pressure 97/54 (mmHg) O2 Sat by Pulse 96 96 Oximetry 03/23/17 03/23/17 03/24/17 21:06 23:21 02:34 Temperature 98.1 F 97.6 F Pulse Rate 97 90 16 Respiratory 16 92 Rate Blood Pressure 109/59 108/47 (mmHg) O2 Sat by Pulse 98 98 98 Oximetry 03/24/17 03/24/17 03:38 07:41 Temperature 97.4 F 97.4 F Pulse Rate 61 73 Respiratory 15 16 Rate Blood Pressure 99/50 117/59 (mmHg) O2 Sat by Pulse 99 100 Oximetry - Intake and Output Intake and Output: Intake & Output 03/21/17 03/22/17 03/23/17 03/24/17 11:59 11:59 11:59 11:59 Intake Total 360 300 280 0 Balance 360 300 280 0 Intake: Oral 360 300 280 0 Other: Estimated Void Medium Small Large Medium # Bowel Movements 1 1 1 1 Estimated Stool Amount Medium Medium Small # Voids 1 1 1 2 ADLs: Meal Record Start: 03/14/17 14: 49 Freq: 09,13,18 Status: Complete Document 03/14/17 18:00 [id number] (Rec: 03/14/17 18:37 [id number] ICU-C25) Document 03/15/17 09:00 [id number] (Rec: 03/15/17 10:09 [id number] ICU-M10) Document 03/15/17 13:00 [id number] (Rec: 03/15/17 13:58 [id number] ICU-C12) Document 03/15/17 18:00 [id number] (Rec: 03/15/17 18:04 [id number] ICU-M10) Document 03/16/17 09:00 [id number] (Rec: 03/16/17 09:12 [id number] ICU-C12) Document 03/16/17 09:11 [id number] (Rec: 03/16/17 09:12 [id number] ICU-C11) ADLs: Meal Record Start: 03/16/17 16: 40 Freq: DAILY@0900,1400,1800 Status: Active Created 03/16/17 16:40 [id number] (Rec: 03/16/17 16:40 [id number] MED-C09) Document 03/16/17 16:42 [id number] (Rec: 03/16/17 16:43 [id number] MED-C09) Document 03/16/17 18:00 [id number] (Rec: 03/16/17 22:58 [id number] MED-C09) Document 03/17/17 09:00 [id number] (Rec: 03/17/17 11:30 EHU2025 MED-C11) Document 03/17/17 13:54 [id number] (Rec: 03/17/17 14:09 MRU2113 MED-C11) Document 03/17/17 18:00 PUI1391 (Rec: 03/17/17 21:32 CZJ1056 MED-C09) Document 03/18/17 09:00 OEU5323 (Rec: 03/18/17 14:56 [id number] MED-C09) Document 03/18/17 14:00 [id number] (Rec: 03/18/17 14:58 [id number] MED-C09) Document 03/18/17 18:00 [id number] (Rec: 03/18/17 22:05 [id number] MED-C11) Document 03/19/17 09:00 [id number] (Rec: 03/19/17 11:46 [id number] MED-C11) Document 03/19/17 14:00 [id number] (Rec: 03/19/17 15:16 [id number] MED-C11) Document 03/19/17 18:00 [id number] (Rec: 03/19/17 18:42 [id number] MED-C11) Document 03/20/17 14:00 [id number] (Rec: 03/20/17 15:30 [id number] MED-C11) Document 03/20/17 18:00 RAR3011 (Rec: 03/20/17 22:39 [id number] MED-C11) Document 03/21/17 09:00 [id number] (Rec: 03/21/17 14:58 [id number] MED-C09) Document 03/21/17 14:00 [id number] (Rec: 03/21/17 15:00 [id number] MED-C09) Document 03/21/17 18:35 [id number] (Rec: 03/21/17 18:35 [id number] MED-C15) Document 03/22/17 09:00 [id number] (Rec: 03/22/17 11:40 [id number] MED-C11) Document 03/22/17 15:18 [id number] (Rec: 03/22/17 15:18 [id number] MED-C02) Document 03/22/17 18:00 [id number] (Rec: 03/22/17 18:12 [id number] MED-C09) Document 03/23/17 09:00 [id number] (Rec: 03/23/17 11:30 [id number] MED-C11) Document 03/23/17 18:00 [id number] (Rec: 03/23/17 22:32 [id number] MED-C11) Intake and Output Start: 03/14/17 14: 49 Freq: 06,14,22 Status: Complete Document 03/14/17 17:06 [id number] (Rec: 03/14/17 19:06 [id number] ICU-C25) Document 03/14/17 21:59 [id number] (Rec: 03/14/17 22:00 [id number] ICU-C06) Document 03/14/17 22:46 [id number] (Rec: 03/14/17 22:46 [id number] ICU-C25) Document 03/15/17 06:00 [id number] (Rec: 03/15/17 06:44 [id number] ICU-C06) Document 03/15/17 14:00 [id number] (Rec: 03/15/17 14:40 [id number] ICU-C12) Document 03/15/17 21:51 [id number] (Rec: 03/15/17 21:53 [id number] ICU-M10) Document 03/16/17 06:15 [id number] (Rec: 03/16/17 06:15 [id number] [facility]-M05 ) Document 03/16/17 06:50 [id number] (Rec: 03/16/17 06:50 [id number] ICU-M10) Document 03/16/17 09:47 [id number] (Rec: 03/16/17 09:47 [id number] ICU-C11) Document 03/16/17 10:31 [id number] (Rec: 03/16/17 10:31 [id number] ICU-M10) - Physical Exam General Physical Exam Comment: Right heel has extensive stage 2 ulcer General: No Cyanosis, Yes Anemia, No Jaundice, No Clubbing Lungs and Chest: Yes: Chest Expansion Full, Chest Expansion Symetrica, Percussion Note Resonant, Vessicular Breath Sounds. No: Crackles, Wheezes Heart Rate and Rhythm: Regular JVP: Not Elevated Additional Cardiovascular: Yes: Normal Heart Sounds. No: Heart Murmur, Pedal Edema Abdominal Exam: Yes: Soft, Bowel Sounds Present. No: Distention, Abdominal Tenderness Assessment - Problem List Assessment: Patient Problems At risk of decubitus ulcer (Acute) Atrial fibrillation with controlled ventricular response (Acute) DNR (do not resuscitate) (Acute) Dementia (Acute) Hematuria (Acute) Hypothyroidism (Acute) MRSA nasal colonization (Acute) Malnutrition (Acute) Medical orders for life-sustaining treatment (MOLST) form in chart (Acute) Swallowing dysfunction (Acute) Systolic and diastolic CHF, acute (Acute) Tachypnea (Acute) Thrombocytopenia (Acute) Vitamin D deficiency (Acute) Anemia (Chronic) Hyperlipidemia (Chronic) Late effects of acute poliomyelitis (Chronic) S/P cardiac pacemaker procedure (Chronic 03/14/14) Status post AAA (abdominal aortic aneurysm) repair (Chronic) Plan: He is stable and ready for discharge.
[2017-03-24] MEDS: Amoxicillin/Clavulanate O.SYR* 400 MG/5 ML ORAL.SYRIN PO SCH (09:12)
[2017-03-24] MEDS: Potassium Chloride LIQUID* 20 MEQ PACKET PO SCH (09:13)
[2017-03-24] MEDS: Ramipril CAP* 2.5 MG PO SCH (09:13)
[2017-03-24] MEDS: Carvedilol TAB* 6.25 MG PO SCH (09:13)
[2017-03-24] MEDS: Hydrocortisone TAB* 10 MG PO SCH (09:14)
[2017-03-24] MEDS: Liothyronine TAB* 5 MCG PO SCH (09:15)
--- NOTE | 2017-03-24 11:50 | DS ---
CC: Dr. Brenda Salcedo at [facility]; [facility] * DISCHARGE SUMMARY: DATE OF ADMISSION: 03/14/17 DATE OF DISCHARGE: 03/24/17 DISCHARGE DIAGNOSES: 1. Sepsis. 2. Urinary tract infection. 3. Congestive cardiac failure. 4. Swallowing dysfunction. 5. Atrial fibrillation. 6. Hypothermia. 7. Hypothyroidism. 8. Thrombocytopenia with petechial rash. 9. Malnutrition. SECONDARY DIAGNOSES: 1. Dementia. 2. Status post abdominal aortic aneurysm repair. 3. Status post cardiac pacemaker. 4. Late effects of polio. 5. Dyslipidemia. 6. Anemia. 7. Vitamin D deficiency. 8. Methicillin-resistant Staphylococcus aureus nasal colonization. HISTORY: Lex Miller is an 89-year-old white male. He is a resident of [facility]. His presentation is documented in Dr. Mina Carson' s admitting history and physical. In short, he was declining for several days prior to admission and was just wanting to sleep, very lethargic and hypotensive. At arrival in the emergency room, his core temperature was 90 degrees Fahrenheit. He responded to fluids in the ED and treatment for sepsis. On initial examination, hypothermia, heart rate 60, paced. He was awake, mildly encephalopathic. Had petechia on his abdomen but they were old. Initial assessment, severe sepsis secondary to UTI, mild septic encephalopathy, myxedema, adrenal insufficiency, acute renal failure, hypokalemia and thrombocytopenia. He was initially managed on the ICU under the garbage collector. INVESTIGATIONS AT PRESENTATION: At presentation, hematology, white count 5.3, hemoglobin 9.9, hematocrit 31, platelets 89, percent neutrophils 78.3. Chemistry, sodium 139, potassium 5.8, chloride 106, bicarbonate 28, BUN 58, creatinine 1.86, glucose 83, lactic acid 2.2, AST 35, ALT 19, ALP 102, troponin I 0.01, CRP 43.47, TSH 12.64, cortisol 18.37. Imaging, chest x-ray: Chronic lung findings of hyperinflation, enlarged cardiac silhouette with mild superimposed vascular congestion. INVESTIGATIONS DURING HOSPITALIZATION: On 03/20/17, abdominal and pelvic CT scan, assessment: Moderate bilateral pleural effusions with compressive atelectasis, small amount of ascites, decrease in size with cystic lesion of pancreatic head, otherwise no recent changes. Chest x-ray, 03/22/17, cardiomegaly, pulmonary interstitial edema, small pleural effusions. Cardiovascular findings, EKG on 03/14/17, rate 96, QTc 645, QRS axis 45, atrial fibrillation. On 03/22/17, transthoracic echocardiogram focal wall abnormality , ejection fraction 35% to 40%, significant change compared with 07/24/15 study when the ejection fraction was greater than 65%. Other significant laboratory findings during hospital stay, ferritin 356, B12 1326, vitamin D less than 2, procalcitonin less than 1, BNP 2861 on 03/22/17. Microbiology: Urine culture, aerococcus species. CONSULTATIONS: Dr. Brenda Salcedo on 03/23/17. Her consultation is part of the medical record. In short, she reviewed the hospital stay and in few of the progressive dementia exacerbated by urosepsis and severe oropharyngeal dysphagia and risk of further aspiration or recurrence of sepsis, she felt he qualified for hospice care services once discharged. HOSPITAL COURSE: Lex Miller initially had an acute hospital stay in the ICU where he was treated with a heating blanket, IV fluids and IV antibiotics for urosepsis, hypotension, hypothermia, hypothyroidism and functional adrenal insufficiency. He was transferred to the regular medical bed and initially continued to have hypothermia. I started him on liothyronine for its thermogenic properties as well as for replacement and he responded to this. In addition, I maintained him on hydrocortisone as he needed stress doses. Towards the end of the hospital stay, he had recovered from the urosepsis but developed congestive cardiac failure, which according to the echocardiogram with systolic and most likely diastolic as well. He has developed some new regional wall abnormalities since his previous echocardiogram in July 2015. During the hospital stay, he had swallowing evaluations by Speech Therapy. He had a severe dysphagia with risk of aspiration. He also showed step-montiel decline in his mental state from his baseline dementia. Lab work showed that he had malnutrition and generally the assessment was that he was failing to thrive. With the permission of the family who I kept in close touch, I obtained a hospice care consult and they agreed that this was the optimum management for him. On the day of discharge, he has no particular complaints. PHYSICAL EXAMINATION: Vital Signs: Temperature 97.4, respirations 16, pulse rate 73, oxygenation 100% on 2 L, blood pressure 117/59. He is anemic. No cyanosis, jaundice or clubbing. Skin: He has a stage 2 decubitus ulcer on his right heel despite strenuous attempt to keep pressure of this area. His petechial hemorrhages have resolved. Cardiovascular system: Pulse was irregular. Venous pressure was not distended. Heart sounds are normal. No added sounds or murmurs. No edema. Respiratory system: Anterior chest is clear. Abdomen: Soft, no distention, masses, tenderness or organomegaly. Bowel sounds present. Nervous system: He is alert, oriented to place and person. He answers questions though has little insight. Cranial nerves II through XII are grossly intact. He can move all four limbs but has decreased generalized weakness. ASSESSMENT AND PLAN: 1. Sepsis and urinary tract infection. This has resolved, I am stopping his antibiotics. 2. Congestive cardiac failure, atrial fibrillation. He has had step-montiel decline in his cardiac function likely due to silent ischemia. Decision is being made not to stratify his risk or do any intervention. I have put him on an JULISSA inhibitor and he is on a beta-tereza. In view of previous hemorrhage and anemia we have not started him on anticoagulation or anti-platelet therapy and also because he is under hospice care. 3. Hypothyroidism, hypothermia, and functional adrenal insufficiency. He had profound recurrent hypothermia during his hospitalization, I am treating this as caused by malnutrition, functional adrenal insufficiency and hypothyroidism. He requires physiological replacement doses of hydrocortisone, pharmacological doses of thyroid hormone plus liothyronine and improved nutrition which may not be easy to achieve. He is now euthermic and clinically has no evidence of adrenal or thyroid insufficiency. 4. Swallowing dysfunction. This is a mild change on this admission. He has a great risk of aspiration pneumonia. 5. Anemia and thrombocytopenia. These are both chronic and likely due to his chronic disease and malnutrition. 6. Dementia. This is progressive and he has had a step-montiel decline in his cognitive function, which may represent vascular event due to watershed vulnerability. 7. Skin: He is at high risk of decubitus ulceration. He had a former stage 4 right heel ulcer after his hospitalization for his abdominal aortic aneurysm. On this occasion, he now has a stage 2, this needs to have pressure kept off it. 8. Malnutrition: He has multiple deficiencies in protein calories and micronutrients. These may not meet replacement standards owing to his debility. 9. Failure to thrive: This is the underlying problem at this point. He has multiple systems that are not functioning well. He has been assessed by hospice care who feel that he is a candidate for hospice, I will work with them after discharge to rationalize his pharmacological therapy. DISCHARGE MEDICATIONS: 1. Furosemide 40 mg daily. 2. Potassium chloride 20 mEq daily. 3. Hydrocortisone 10 mg twice daily. 4. Liothyronine 10 mcg every 12 hours. 5. Magnesium oxide 400 mg twice daily. 6. Vitamin C 500 mg daily. 7. Iron sulfate 325 mg daily. 8. Tamsulosin 0.4 mg at bedtime. 9. Acetaminophen 325 mg every 8 hours as needed for pain or fever. 10. Omeprazole 20 mg p.o. daily. 11. Moisturizing cream apply twice daily to vulnerable areas. 12. Metoprolol XL 25 mg daily. 13. Psyllium one pack each day. 14. Levothyroxine 125 mcg daily. During this hospitalization, I have spoken on a daily basis with his daughter Elle Miller, she has followed her father's illness closely and is greatly saddened by his failure to thrive, acknowledges that hospice care is the best thing for him with a no hospitalization order. He has a DNR/DNI. She also has declined anticoagulation. She has met with Dr. Brenda Salcedo and I think this is a compassionate and realistic plan after discharge. [id number]/[facility] #: [id number] BINA
== END 2017-03-24 10:10 | disposition hospice, home (50) | DRG 871 ==
LOC: ED 12:43 → ICU 13:56 → MED 03-16 08:03
PROVIDERS: ADMIT Internal Medicine Critical Care Medicine; ATTEND Internal Medicine
DX: A41.9 Sepsis, unspecified organism (principal); G93.41 Metabolic encephalopathy; N17.9 Acute kidney failure, unspecified; E46 Unspecified protein-calorie malnutrition; K86.2 Cyst of pancreas; E27.40 Unspecified adrenocortical insufficiency; E87.5 Hyperkalemia; D69.6 Thrombocytopenia, unspecified; I48.0 Paroxysmal atrial fibrillation; I50.42 Chronic combined systolic (congestive) and diastolic (congestive) heart failure; N39.0 Urinary tract infection, site not specified; I11.0 Hypertensive heart disease with heart failure; Z66 Do not resuscitate; R65.20 Severe sepsis without septic shock; R13.12 Dysphagia, oropharyngeal phase; J45.909 Unspecified asthma, uncomplicated; E03.9 Hypothyroidism, unspecified; F03.90 Unspecified dementia, unspecified severity, without behavioral disturbance, psychotic disturbance, mood disturbance, and anxiety; E78.5 Hyperlipidemia, unspecified; R68.0 Hypothermia, not associated with low environmental temperature; G14 Postpolio syndrome; E55.9 Vitamin D deficiency, unspecified; R31.9 Hematuria, unspecified; I05.0 Rheumatic mitral stenosis; I99.8 Other disorder of circulatory system; L89.612 Pressure ulcer of right heel, stage 2; R62.7 Adult failure to thrive; B96.89 Other specified bacterial agents as the cause of diseases classified elsewhere; D64.9 Anemia, unspecified; Z22.322 Carrier or suspected carrier of Methicillin resistant Staphylococcus aureus; Z86.711 Personal history of pulmonary embolism; Z82.49 Family history of ischemic heart disease and other diseases of the circulatory system; Z72.89 Other problems related to lifestyle; Z87.891 Personal history of nicotine dependence; Z95.0 Presence of cardiac pacemaker; Z68.27 Body mass index [BMI] 27.0-27.9, adult
CPT/HCPCS: 36415; 71010; 74177; 80048; 80053; 80076; 80202; 81003; 81015; 82306; 82525; 82533; 82570; 82607; 82728; 82746; 83540; 83550; 83605; 83735; 83880; 84100; 84134; 84145; 84300; 84439; 84443; 84479; 84481; 84484; 84630; 85025; 85045; 85610; 85730; 86140; 87040; 87077; 87086; 87641; 93005; 93306; 94760; A9270-GY; J1644; J1720; J1940; J2543; J3370; J3480; Q9967